=== PATIENT | female | born 1935 | race Caucasian/White ===

== ENCOUNTER 2017-01-04 20:06 | Emergency (ER) | payer MEDICARE, OTHER ==
[2017-01-04 20:22] VITALS: RESP 18
[2017-01-04] MEDS ORDERED: ONDANSETRON 4 MG/2 ML VIAL IVP STA (20:36)
[2017-01-04] MEDS ORDERED: KETOROLAC 60 MG/2 ML VIAL IVP STA (20:36)
--- NOTE | 2017-01-04 20:39 | ED ---
General Adult HPI - General Chief complaint: Fall Stated complaint: FALL Time Seen by Provider: 01/04/17 20:20 Source: patient, EMS, RN notes reviewed Mode of arrival: EMS Limitations: no limitations - History of Present Illness Initial comments: This is an 81-year-old female who is brought in by EMS. Patient states she was in her bathroom slipped fell forward and hit her nose on the vanity. Patient states from there she fell backwards onto her buttocks and now she complains of home pain at the bridge of her nose as well as lower back pain. Patient denies any head injury patient denies any headache patient denies any loss of consciousness. Patient denies any neck pain or any numbness or weakness. Patient denies chest pain or shortness of breath. Patient denies any upper extremity pain. Patient denies abdominal pain. Patient denies any upper back pain she only complains of lumbar sacral back pain. Patient denies any hip pain or lower extremity pain. Patient denies any sites of bleeding. - Related Data Home Medications Medication Instructions Recorded Confirmed Lisinopril-Hctz 20-25 mg 1 tab PO QAM 12/03/15 01/04/17 [Zestoretic 20-25] glyBURIDE/METFORMIN HCL 1 tab PO BID 12/16/15 01/04/17 [glyBURIDE/METFORMIN HCL 5-500 mg] Gabapentin [Neurontin] 300 mg PO BID 01/14/16 01/04/17 Aspirin [Adult Low Dose Aspirin EC] 81 mg PO DAILY 01/04/17 01/04/17 Ibuprofen [Motrin] 600 mg PO Q8HR PRN 01/04/17 01/04/17 Allergies Allergy/AdvReac Type Severity Reaction Status Date / Time Penicillins Allergy Rash/Hives Verified 01/04/17 20:24 Review of Systems ROS Statement: Those systems with pertinent positive or pertinent negative responses have been documented in the HPI. ROS Other: All systems not noted in ROS Statement are negative. Past Medical History Past Medical History: Diabetes Mellitus, Hypertension, Osteoarthritis (OA) Additional Past Medical History / Comment(s): wound vac to rt knee History of Any Multi-Drug Resistant Organisms: None Reported Past Surgical History: Appendectomy, Cholecystectomy Additional Past Surgical History / Comment(s): Lt knee surgry Past Anesthesia/Blood Transfusion Reactions: No Reported Reaction Past Psychological History: No Psychological Hx Reported Smoking Status: Former smoker Past Alcohol Use History: None Reported Past Drug Use History: None Reported - Past Family History Mother Family Medical History: Cancer Father Family Medical History: CVA/TIA General Exam - General Exam Comments Initial Comments: GENERAL: Patient is well-developed and well-nourished. Patient is nontoxic and well- hydrated and is in mild distress. ENT: Neck is soft and supple. No significant lymphadenopathy is noted. Oropharynx is clear. Moist mucous membranes. Neck has full range of motion without eliciting any pain. Patient's nasal bone is significantly tender and swollen EYES: The sclera were anicteric and conjunctiva were pink and moist. Extraocular movements were intact and pupils were equal round and reactive to light. Eyelids were unremarkable. Patient has some ecchymosis below both eyes PULMONARY: Unlabored respirations. Good breath sounds bilaterally. No audible rales rhonchi or wheezing was noted. CARDIOVASCULAR: There is a regular rate and rhythm without any murmurs gallops or rubs. ABDOMEN: Soft and nontender with normal bowel sounds. No palpable organomegaly was noted. There is no palpable pulsatile mass. SKIN: Skin is clear with no lesions or rashes and otherwise unremarkable. NEUROLOGIC: Patient is alert and oriented x3. Cranial nerves II through XII are grossly intact. Motor and sensory are also intact. Normal speech, volume and content. MUSCULOSKELETAL: Normal extremities with adequate strength and full range of motion. LYMPHATICS: No significant lymphadenopathy is noted PSYCHIATRIC: Normal psychiatric evaluation. Limitations: no limitations Course Vital Signs 01/04/17 20:19 Temperature 98.7 F Pulse Rate 98 Respiratory 18 Rate Blood Pressure 152/70 O2 Sat by Pulse 96 Oximetry Medical Decision Making - Medical Decision Making CT of the facial bones was negative for any fractures. Lumbar sacral spine was negative for any fractures. Patient's cervical spine x-ray was negative for any acute fractures. Disposition Clinical Impression: Facial contusion Disposition: HOME SELF-CARE Condition: Good Instructions: Fall Prevention for Older Adults (ED) Referrals: Emilee Elmore MD [Primary Care Provider] - 1-2 days Time of Disposition: 22:24
--- NOTE | 2017-01-04 21:15 | CT ---
EXAMINATION TYPE: CT facial bones wo con DATE OF EXAM: 01/04/2017 9:08 PM COMPARISON: NONE HISTORY: Fall today. Bruising bilateral orbital region CT DLP: 597 mGycm Automated exposure control for dose reduction was used. TECHNIQUE: CT scan of the sinuses is performed without contrast, axial images are obtained, coronal r eformatted images are also reviewed. FINDINGS: Orbital margins are intact. There is bilateral patency of the ostiomeatal complex. There is no eviden ce of a blowout fracture. There is no sign of orbital mass. The globes are symmetric. Nasal bone appe ars intact. Zygomatic arches appear normal. The maxilla is intact. The mandibular ring is intact. The re is some narrowing and spurring at the temporomandibular joints. There is fairly normal aeration of the paranasal sinuses. IMPRESSION: Negative CT scan of the facial bones. No evidence of traumatic injury.
--- NOTE | 2017-01-04 21:39 | XR ---
EXAMINATION TYPE: XR lumbar spine 2 or 3V DATE OF EXAM: 01/04/2017 9:22 PM COMPARISON: NONE HISTORY: Pain after a fall TECHNIQUE: 3 views FINDINGS: There is a mild thoracolumbar levoscoliosis. There is vacuum disc at L3-4 L4-5. There is ex tensive sclerotic change on both sides of the disc spaces at L3-4 and L4-5. There is some ankylotic c hange in the lower thoracic and upper lumbar spine. Abdominal aorta is atheromatous. Posterior elemen ts are intact. Sacroiliac joints appear normal. 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 There is sclerosi s at L3-4 L4-5 disc spaces that could relate to old chronic discitis. No fracture seen.
--- NOTE | 2017-01-04 21:41 | XR ---
EXAMINATION TYPE: XR cervical spine comp DATE OF EXAM: 01/04/2017 9:22 PM COMPARISON: 02/18/2014 HISTORY: Pain after a fall TECHNIQUE: 6 views FINDINGS: The cervical vertebra have fairly normal alignment. There is mild anterior spurring of the endplates. Posterior elements are intact. Atlantoaxial facet joint is normal. There are no cervical r ibs. IMPRESSION: Spondylotic changes. No fracture seen. No adverse change compared to old exam.
[2017-01-04] MEDS ORDERED: ACET/COD 300 MG/30 MG STARTER PACK 6 TAB BTL PO STA (22:45)
[2017-01-04] MEDS ORDERED: Acetaminophen-Codeine 300-30mg TAB PO STA (22:45)
[2017-01-04 23:15] VITALS: BP 116/57; PULSE 80; TEMP 98.6
== END 2017-01-04 22:55 | disposition home or self-care (01) ==
LOC: EC 20:06 → SUPCPDRO 20:06 → EC 22:55
DX: S00.33XA Contusion of nose, initial encounter (principal); E11.9 Type 2 diabetes mellitus without complications; I10 Essential (primary) hypertension; M19.90 Unspecified osteoarthritis, unspecified site; M46.40 Discitis, unspecified, site unspecified; W18.30XA Fall on same level, unspecified, initial encounter; Y92.002 Bathroom of unspecified non-institutional (private) residence as the place of occurrence of the external cause; Z79.899 Other long term (current) drug therapy; Z79.82 Long term (current) use of aspirin; Z88.0 Allergy status to penicillin; Z87.891 Personal history of nicotine dependence
CPT/HCPCS: 99284; 96374; 96375; 72050; 72100; 70486; J2405; J1885

== ENCOUNTER 2021-11-10 13:32 | Inpatient (IN) | payer MEDICARE ==
[2021-11-10] MEDS ORDERED: SODIUM CHLORIDE 0.9% 500 ML 500 ML IV STA (13:53)
[2021-11-10 14:19] LABS: Glucose,Whole Blood 115 mg/dL (75-99)
--- NOTE | 2021-11-10 14:26 | XR ---
EXAMINATION TYPE: XR chest 2V DATE OF EXAM: 11/10/2021 COMPARISON: 02/18/2014 HISTORY: Shortness of breath TECHNIQUE: Frontal and lateral views of the chest are obtained. FINDINGS: Scattered senescent parenchymal changes noted. Hyperinflation compatible with COPD. No evidence for infiltrate. No evidence for atelectasis. Heart size is stable. Mediastinal structures are stable and grossly unremarkable. No evidence for hilar prominence. Degenerative changes dorsal spine. IMPRESSION: 1. No evidence for acute pulmonary disease.
--- NOTE | 2021-11-10 14:43 | ED ---
General Adult HPI - General Chief complaint: Dizziness Stated complaint: lt hand numbness, light headed Time Seen by Provider: 11/10/21 13:35 Source: patient, family, RN notes reviewed, old records reviewed Mode of arrival: wheelchair Limitations: no limitations - History of Present Illness Initial comments: This is an 86-year-old female presents emergency department stating that she woke up this morning and her left arm was tingly in her hand but she could move it normally. Patient states the tingling sensation lasted approximately 30 minutes and was gone. Patient doesn't know if she slept on it wrong but she normally does not sleep on that side. Patient states she also has felt lightheaded on and off the whole day to a point where she thought she was going to pass out. Patient denies chest pain palpitations difficulty breathing or shortness of breath. Patient denies any cough. Patient denies abdominal pain patient denies nausea vomiting diarrhea. - Related Data Home Medications Medication Instructions Recorded Confirmed Lisinopril-Hctz 20-25 mg 1 tab PO QAM 12/03/15 01/04/17 [Zestoretic 20-25] glyBURIDE/METFORMIN HCL 1 tab PO BID 12/16/15 01/04/17 [Glucovance 5-500 mg] Gabapentin [Neurontin] 300 mg PO BID 01/14/16 01/04/17 Aspirin [Adult Low Dose Aspirin EC] 81 mg PO DAILY 01/04/17 01/04/17 Ibuprofen [Motrin] 600 mg PO Q8HR PRN 01/04/17 01/04/17 Allergies Allergy/AdvReac Type Severity Reaction Status Date / Time Penicillins Allergy Rash/Hives Verified 01/04/17 20:24 Review of Systems ROS Statement: Those systems with pertinent positive or pertinent negative responses have been documented in the HPI. ROS Other: All systems not noted in ROS Statement are negative. Past Medical History Past Medical History: Diabetes Mellitus, Hypertension, Osteoarthritis (OA) Additional Past Medical History / Comment(s): wound vac to rt knee History of Any Multi-Drug Resistant Organisms: None Reported Past Surgical History: Appendectomy, Cholecystectomy Additional Past Surgical History / Comment(s): Lt knee surgry Past Anesthesia/Blood Transfusion Reactions: No Reported Reaction Past Psychological History: No Psychological Hx Reported Smoking Status: Never smoker Past Alcohol Use History: None Reported Past Drug Use History: None Reported - Past Family History Mother Family Medical History: Cancer Father Family Medical History: CVA/TIA General Exam - General Exam Comments Initial Comments: GENERAL: Patient is well-developed and well-nourished. Patient is nontoxic and well- hydrated and is in mild distress. ENT: Neck is soft and supple. No significant lymphadenopathy is noted. Oropharynx is clear. Moist mucous membranes. Neck has full range of motion without eliciting any pain. EYES: The sclera were anicteric and conjunctiva were pink and moist. Extraocular movements were intact and pupils were equal round and reactive to light. Eyelids were unremarkable. PULMONARY: Unlabored respirations. Good breath sounds bilaterally. No audible rales rhonchi or wheezing was noted. CARDIOVASCULAR: There is a regular rate and rhythm without any murmurs gallops or rubs. ABDOMEN: Soft and nontender with normal bowel sounds. SKIN: Skin is clear with no lesions or rashes and otherwise unremarkable. NEUROLOGIC: Patient is alert and oriented x3. Cranial nerves II through XII are grossly intact. Motor and sensory are also intact. Normal speech, volume and content. Symmetrical smile. MUSCULOSKELETAL: Normal extremities with adequate strength and full range of motion. LYMPHATICS: No significant lymphadenopathy is noted PSYCHIATRIC: Normal psychiatric evaluation. Limitations: no limitations Course Vital Signs 11/10/21 11/10/21 13:36 14:48 Temperature 97.4 F L Pulse Rate 85 Pulse Rate [ 81 Left Sitting Spot Machine Operator ] Pulse Rate [ 87 Left Standing Spot Machine Operator ] Pulse Rate [ 71 Left Supine Spot Machine Operator ] Respiratory 17 Rate Blood Pressure 166/98 Blood Pressure 152/79 [Left Arm Sitting] Blood Pressure 143/67 [Left Arm Standing] Blood Pressure 133/55 [Left Arm Supine] O2 Sat by Pulse 99 Oximetry Medical Decision Making - Medical Decision Making EKG shows normal sinus rhythm at 80 bpm MT interval 280 QRSs 80 QT interval 390 QTC is 449. Patient's EKG shows no ST segment elevation or depression CT of the brain shows no acute abnormality. Chest x-ray shows no acute abnormality. I spoke with Dr. Ruiz he agreed to admit the patient I consult cardiology and neurology. - Lab Data Result diagrams: 11/10/21 14:03 11/10/21 14:03 Lab Results 11/10/21 11/10/21 11/10/21 Range/Units 14:03 14:03 14:03 WBC 11.9 H (3.8-10.6) k/uL RBC 4.22 (3.80-5.40) m/uL Hgb 13.2 (11.4-16.0) gm/dL Hct 40.9 (34.0-46.0) % MCV 96.8 (80.0-100.0) fL MCH 31.2 (25.0-35.0) pg MCHC 32.2 (31.0-37.0) g/dL RDW 12.5 (11.5-15.5) % Plt Count 271 (150-450) k/uL MPV 9.2 Neutrophils % 77 % Lymphocytes % 17 % Monocytes % 4 % Eosinophils % 2 % Basophils % 0 % Neutrophils # 9.1 H (1.3-7.7) k/uL Lymphocytes # 2.0 (1.0-4.8) k/uL Monocytes # 0.5 (0-1.0) k/uL Eosinophils # 0.2 (0-0.7) k/uL Basophils # 0.0 (0-0.2) k/uL PT (9.0-12.0) sec INR (<1.2) APTT (22.0-30.0) sec Sodium 137 (137-145) mmol/L Potassium 4.0 (3.5-5.1) mmol/L Chloride 102 (98-107) mmol/L Carbon Dioxide 24 (22-30) mmol/L Anion Gap 11 mmol/L BUN 15 (7-17) mg/dL Creatinine 0.99 (0.52-1.04) mg/dL Est GFR (CKD-EPI)AfAm 59 (>60 ml/min/1.73 sqM) Est GFR (CKD-EPI)NonAf 52 (>60 ml/min/1.73 sqM) Glucose 118 H (74-99) mg/dL POC Glucose (mg/dL) (75-99) mg/dL POC Glu Stock Tracer ID Calcium 9.4 (8.4-10.2) mg/dL Magnesium 1.0 L (1.6-2.3) mg/dL Total Bilirubin 0.7 (0.2-1.3) mg/dL AST 28 (14-36) U/L ALT 15 (4-34) U/L Alkaline Phosphatase 90 (38-126) U/L Troponin I (0.000-0.034) ng/mL Total Protein 7.0 (6.3-8.2) g/dL Albumin 4.0 (3.5-5.0) g/dL Urine Color Yellow Urine Appearance Cloudy H (Clear) Urine pH 6.5 (5.0-8.0) Ur Specific [place] 1.008 (1.001-1.035) Urine Protein Negative (Negative) Urine Glucose (UA) Negative (Negative) Urine Ketones Negative (Negative) Urine Blood Negative (Negative) Urine Nitrite Negative (Negative) Urine Bilirubin Negative (Negative) Urine Urobilinogen <2.0 (<2.0) mg/dL Ur Leukocyte Esterase Trace H (Negative) Urine RBC 1 (0-5) /hpf Urine WBC 3 (0-5) /hpf Ur Squamous Epith Cells 1 (0-4) /hpf Urine Bacteria Rare H (None) /hpf Urine Mucus Rare H (None) /hpf Coronavirus (PCR) (Not Detectd) 11/10/21 11/10/21 11/10/21 Range/Units 14:03 14:03 14:04 WBC (3.8-10.6) k/uL RBC (3.80-5.40) m/uL Hgb (11.4-16.0) gm/dL Hct (34.0-46.0) % MCV (80.0-100.0) fL MCH (25.0-35.0) pg MCHC (31.0-37.0) g/dL RDW (11.5-15.5) % Plt Count (150-450) k/uL MPV Neutrophils % % Lymphocytes % % Monocytes % % Eosinophils % % Basophils % % Neutrophils # (1.3-7.7) k/uL Lymphocytes # (1.0-4.8) k/uL Monocytes # (0-1.0) k/uL Eosinophils # (0-0.7) k/uL Basophils # (0-0.2) k/uL PT 10.4 (9.0-12.0) sec INR 1.0 (<1.2) APTT 23.3 (22.0-30.0) sec Sodium (137-145) mmol/L Potassium (3.5-5.1) mmol/L Chloride (98-107) mmol/L Carbon Dioxide (22-30) mmol/L Anion Gap mmol/L BUN (7-17) mg/dL Creatinine (0.52-1.04) mg/dL Est GFR (CKD-EPI)AfAm (>60 ml/min/1.73 sqM) Est GFR (CKD-EPI)NonAf (>60 ml/min/1.73 sqM) Glucose (74-99) mg/dL POC Glucose (mg/dL) (75-99) mg/dL POC Glu Stock Tracer ID Calcium (8.4-10.2) mg/dL Magnesium (1.6-2.3) mg/dL Total Bilirubin (0.2-1.3) mg/dL AST (14-36) U/L ALT (4-34) U/L Alkaline Phosphatase (38-126) U/L Troponin I <0.012 (0.000-0.034) ng/mL Total Protein (6.3-8.2) g/dL Albumin (3.5-5.0) g/dL Urine Color Urine Appearance (Clear) Urine pH (5.0-8.0) Ur Specific [place] (1.001-1.035) Urine Protein (Negative) Urine Glucose (UA) (Negative) Urine Ketones (Negative) Urine Blood (Negative) Urine Nitrite (Negative) Urine Bilirubin (Negative) Urine Urobilinogen (<2.0) mg/dL Ur Leukocyte Esterase (Negative) Urine RBC (0-5) /hpf Urine WBC (0-5) /hpf Ur Squamous Epith Cells (0-4) /hpf Urine Bacteria (None) /hpf Urine Mucus (None) /hpf Coronavirus (PCR) Not Detected (Not Detectd) 11/10/21 Range/Units 14:11 WBC (3.8-10.6) k/uL RBC (3.80-5.40) m/uL Hgb (11.4-16.0) gm/dL Hct (34.0-46.0) % MCV (80.0-100.0) fL MCH (25.0-35.0) pg MCHC (31.0-37.0) g/dL RDW (11.5-15.5) % Plt Count (150-450) k/uL MPV Neutrophils % % Lymphocytes % % Monocytes % % Eosinophils % % Basophils % % Neutrophils # (1.3-7.7) k/uL Lymphocytes # (1.0-4.8) k/uL Monocytes # (0-1.0) k/uL Eosinophils # (0-0.7) k/uL Basophils # (0-0.2) k/uL PT (9.0-12.0) sec INR (<1.2) APTT (22.0-30.0) sec Sodium (137-145) mmol/L Potassium (3.5-5.1) mmol/L Chloride (98-107) mmol/L Carbon Dioxide (22-30) mmol/L Anion Gap mmol/L BUN (7-17) mg/dL Creatinine (0.52-1.04) mg/dL Est GFR (CKD-EPI)AfAm (>60 ml/min/1.73 sqM) Est GFR (CKD-EPI)NonAf (>60 ml/min/1.73 sqM) Glucose (74-99) mg/dL POC Glucose (mg/dL) 115 H (75-99) mg/dL POC Glu Stock Tracer ID Noelle Clark Calcium (8.4-10.2) mg/dL Magnesium (1.6-2.3) mg/dL Total Bilirubin (0.2-1.3) mg/dL AST (14-36) U/L ALT (4-34) U/L Alkaline Phosphatase (38-126) U/L Troponin I (0.000-0.034) ng/mL Total Protein (6.3-8.2) g/dL Albumin (3.5-5.0) g/dL Urine Color Urine Appearance (Clear) Urine pH (5.0-8.0) Ur Specific [place] (1.001-1.035) Urine Protein (Negative) Urine Glucose (UA) (Negative) Urine Ketones (Negative) Urine Blood (Negative) Urine Nitrite (Negative) Urine Bilirubin (Negative) Urine Urobilinogen (<2.0) mg/dL Ur Leukocyte Esterase (Negative) Urine RBC (0-5) /hpf Urine WBC (0-5) /hpf Ur Squamous Epith Cells (0-4) /hpf Urine Bacteria (None) /hpf Urine Mucus (None) /hpf Coronavirus (PCR) (Not Detectd) Disposition Clinical Impression: TIA (transient ischemic attack), Near syncope Disposition: ADMITTED IP TO THIS HOSP Referrals: Piedad Tompkins MD [Primary Care Provider] - 1-2 days Time of Disposition: 15:55
--- NOTE | 2021-11-10 14:44 | CT ---
EXAMINATION TYPE: CT brain wo con DATE OF EXAM: 11/10/2021 COMPARISON: None HISTORY: Left hand numbness and lightheadedness CT DLP: 1048.4 mGycm Automated exposure control for dose reduction was used. FINDINGS: Mild generalized degenerative change. Intracranial atherosclerotic changes. No midline shift or mass effect. Nonspecific low-attenuation faintly in the white matter most typical remote white matter isch emia. Craniocervical junction maintained. There is a partially empty sella turcica. The mineralization of the calvarium correlate clinically. Orbits are symmetric. Sinuses are clear. IMPRESSION: GENERALIZED DEGENERATIVE CHANGE WITH NO ACUTE HEMORRHAGE OR MASS EFFECT.
[2021-11-10 14:46] LABS: Basophils % (A) 0 %; Eosinophils # (A) 0.2 k/uL (0-0.7); Eosinophils % (A) 2 %; HCT 40.9 % (34.0-46.0); HGB 13.2 gm/dL (11.4-16.0); Lymphocytes % (A) 17 %; MCH 31.2 pg (25.0-35.0); MCHC 32.2 g/dL (31.0-37.0); MCV 96.8 fL (80.0-100.0); Mean Platelet Volume 9.2; Monocytes # (A) 0.5 k/uL (0-1.0); Monocytes % (A) 4 %; Neutrophils # (A) 9.1 k/uL (1.3-7.7); Neutrophils % (A) 77 %; Platelet Count 271 k/uL (150-450); RBC 4.22 m/uL (3.80-5.40); RDW 12.5 % (11.5-15.5); WBC 11.9 k/uL (3.8-10.6)
[2021-11-10 14:54] LABS: Partial Thromboplastin Time 23.3 sec (22.0-30.0); Prothrombin Time 10.4 sec (9.0-12.0)
[2021-11-10 14:58] LABS: Calcium 9.4 mg/dL (8.4-10.2); Total Bilirubin 0.7 mg/dL (0.2-1.3)
[2021-11-10 15:44] LABS: Appearance,Urine Cloudy (Clear); Bacteria,Urine Rare /hpf; Bilirubin,Urine Negative (Negative); Blood,Urine Negative (Negative); Color,Urine Yellow; Glucose,Urine (UA) Negative (Negative); Ketones,Urine Negative (Negative); Leukocyte Esterase,Urine Trace (Negative); Mucus,Urine Rare /hpf; Nitrite,Urine Negative (Negative); PH, Urine 6.5 (5.0-8.0); Protein,Urine Negative (Negative); RBC,Urine 1 /hpf (0-5); Specific Gravity,Urine 1.008 (1.001-1.035); Squamous Epithelial Cell,Urine 1 /hpf (0-4); Urobilinogen,Urine <2.0 mg/dL (<2.0); WBC,Urine 3 /hpf (0-5)
[2021-11-10] MEDS ORDERED: SODIUM CHLORIDE 0.9% 1,000 ML IV ONE (15:55)
[2021-11-10] MEDS: MAGNESIUM SULFATE-D5W PMX 1 GM in DEXTROSE/WATER 1 100ML.BAG IVPB SCH ×2 (17:22→19:01)
[2021-11-10] MEDS ORDERED: Magnesium Replacement Protocol 1 EACH MISC MISCELLANE PRN (17:27)
[2021-11-10] MEDS ORDERED: Potassium Replacement Protocol 1 EACH MISC MISCELLANE PRN (17:27)
--- NOTE | 2021-11-10 18:51 | HP ---
HISTORY AND PHYSICAL DATE OF SERVICE: 11/10/2021. CHIEF COMPLAINTS: Dizziness and as well as numbness and tingling of the left hand. HISTORY OF PRESENT ILLNESS: This 86-year-old woman with a past medical history of multiple medical problems including diabetes, hypertension, history of DJD, history of cholecystectomy, history of appendectomy, being followed by Dr. Piedad Tompkins in the outpatient setting, was noted to have numbness and some tingling of the left arm since 4:00 am. The patient was having this sensation about 30 minutes and because of recurrent symptoms, the family was concerned and the patient was taken to [facility] and was admitted for evaluation and treatment. There is no history of fever, rigors. No history of headache, loss of consciousness. Patient is feeling lightheaded. Otherwise, there is no history any chest pain per se at this time. The evaluation in the ER showed WBC 11.9 and elevated glucose and Covid 19 was negative. The patient also had a CT of the brain which showed generalized DJD changes and no acute change. There is no history of fever, rigors, chills at this time. PAST MEDICAL HISTORY: History of diabetes, hypertension, history of DJD, history of appendectomy, cholecystectomy. HOME MEDICATIONS: Reviewed and include: Glyburide, lisinopril, aspirin, and Neurontin. Doses reviewed. ALLERGIES: PENICILLIN. FAMILY HISTORY: History of cancer in the family. SOCIAL HISTORY: No history of smoking. No history of alcohol. REVIEW OF SYSTEMS: ENT: Diminished vision. Diminished hearing. CARDIOVASCULAR system: As mentioned earlier. RESPIRATORY: As mentioned earlier. GI: No nausea or vomiting. : No dysuria. NERVOUS SYSTEM: As mentioned earlier. ALLERGY/IMMUNOLOGY: No asthma or hayfever. MUSCULOSKELETAL: As mentioned earlier. HEMATOLOGY/ONCOLOGY: No history of anemia. ENDOCRINE: As mentioned earlier. CONSTITUTIONAL: As mentioned earlier. DERMATOLOGY negative. RHEUMATOLOGY Negative. PSYCHIATRIC: As mentioned earlier. PHYSICAL EXAMINATION: Alert and oriented x3. Pulse 81. Blood pressure 152/79, respirations 20. Temperature 97.4. Minimal orthostatic changes. HEENT: Conjunctivae normal. NECK: No JVD. CARDIOVASCULAR: S1, S2 muffled. RESPIRATION: Breath sounds diminished in the bases. No orthostatic changes. ABDOMEN: Soft, nontender. NERVOUS SYSTEM: Higher functions as mentioned. Moves all four limbs. No focal motor or sensory deficits. No signs of cerebellar incoordination. SKIN: No ulcers, no rashes and no bleeding. JOINTS: No active deforming arthropathy. LYMPHATICS: No lymph dnoes palpable in the neck, axilla or groin. LABS: WBC 11.8, hemoglobin 13.2, glucose 115. ASSESSMENT: 1. Tingling and numbness of the left and possible acute transient ischemic attack. 2. Diabetes type 2. 3. Hypertension. 4. History of degenerative joint disease. 5. History of cholecystectomy. 6. History of wound VAC to the right knee. 7. Obesity with body mass index of 37.1. 8. FULL CODE. RECOMMENDATIONS AND DISCUSSION: In this 86-year-old woman presented with multiple complex medical issues, we will monitor the patient closely, continue the current management and recommend neurology consultation and complete neurovascular workup. Resume home medications. Prognosis guarded because of multiple complex medical issues. Further recommendations to follow. A copy of this dictation being forwarded to Dr. Piedad OMER / MONICA: [phone] /
[2021-11-10] MEDS: GABAPENTIN 300 MG CAP PO SCH (20:58)
[2021-11-10 21:00] LABS: Glucose,Whole Blood 152 mg/dL (75-99)
[2021-11-10] MEDS ORDERED: metFORMIN 500 MG TAB PO SCH (21:00)
[2021-11-10] MEDS ORDERED: glipiZIDE 5 MG TAB PO SCH (21:00)
--- NOTE | 2021-11-10 23:20 | US ---
EXAMINATION TYPE: US carotid duplex BILAT DATE OF EXAM: 11/10/2021 COMPARISON: CT brain. CLINICAL HISTORY: stroke. Stroke per order. EXAM MEASUREMENTS: RIGHT: Peak Systolic Velocity (PSV) cm/sec ----- Right CCA: 55.5 ----- Right ICA: 94.1 ----- Right ECA: 73.2 ICA/CCA ratio: 1.7 RIGHT: End Diastole cm/sec ----- Right CCA: 11.0 ----- Right ICA: 6.2 ----- Right ECA: 7.3 LEFT: Peak Systolic Velocity (PSV) cm/sec ----- Left CCA: 59.0 ----- Left ICA: 84.2 ----- Left ECA: 82.0 ICA/CCA ratio: 1.4 LEFT: End Diastole cm/sec ----- Left CCA: 11.1 ----- Left ICA: 29.2 ----- Left ECA: 6.2 VERTEBRALS (direction of flow): Right Vertebral: Antegrade Left Vertebral: Antegrade Rhythm: Normal Plaque seen within bilateral carotid bulbs and left prox ICA. No elevated velocities at this time. *Incidental finding: Hypoechoic area seen within left thyroid lobe: 1.0 x 0.9 x 0.8 cm. IMPRESSION: There is antegrade flow in the vertebral arteries. The images and measurements suggest close to 50% s tenosis in both internal carotid arteries. Criteria for Assigning % of Stenosis / Diameter reduction (Estimation based on the indirect measurements of the internal carotid artery velocities (ICA PSV). 1. Normal (no stenosis)=ICA PSV < 125 cm/s: ratio < 2.0: ICA EDV<40 cm/s. 2. Less than 50% stenosis=ICA PSV < 125 cm/s: ratio < 2.0: ICA EDV<40 cm/s. 3. 50 to 69% stenosis=ICA PSV of 125 to 230 cm/s: ration 2.0 ? 4.0: ICA EDV 40-100 cm/s. 4. Greater than 70% stenosis to near occlusion= ICA PSV > 230 cm/s: ratio > 4.0: ICA EDV > 100 cm/s. 5. Near occlusion= ICA PSV velocities may be low or undetectable: variable ratio and ICA EDV. 6. Total occlusion=unable to detect flow.
[2021-11-11 06:19] LABS: Glucose,Whole Blood 89 mg/dL (75-99)
[2021-11-11] MEDS: GABAPENTIN 300 MG CAP PO SCH (08:14)
[2021-11-11] MEDS ORDERED: glipiZIDE 10 MG TAB PO SCH (09:00)
[2021-11-11] MEDS ORDERED: ASPIRIN 81 MG PO SCH (09:00)
[2021-11-11] MEDS ORDERED: LISINOPRIL-HCTZ 20-25 MG 1 EACH TAB PO SCH (09:00)
[2021-11-11] MEDS ORDERED: metFORMIN 500 MG TAB PO SCH (09:00)
[2021-11-11 09:01] LABS: Calcium 9.7 mg/dL (8.4-10.2); Magnesium 1.4 mg/dL (1.6-2.3); Potassium 3.5 mmol/L (3.5-5.1)
[2021-11-11 09:18] LABS: Basophils % (A) 0 %; Eosinophils # (A) 0.3 k/uL (0-0.7); Eosinophils % (A) 2 %; HCT 39.6 % (34.0-46.0); HGB 12.9 gm/dL (11.4-16.0); Lymphocytes # (A) 2.4 k/uL (1.0-4.8); Lymphocytes % (A) 21 %; MCH 31.8 pg (25.0-35.0); MCHC 32.7 g/dL (31.0-37.0); MCV 97.3 fL (80.0-100.0); Mean Platelet Volume 9.1; Monocytes # (A) 0.7 k/uL (0-1.0); Monocytes % (A) 6 %; Neutrophils # (A) 8.2 k/uL (1.3-7.7); Neutrophils % (A) 70 %; Platelet Count 274 k/uL (150-450); RBC 4.07 m/uL (3.80-5.40); RDW 12.4 % (11.5-15.5); WBC 11.6 k/uL (3.8-10.6)
[2021-11-11] MEDS ORDERED: Magnesium Replacement Protocol 1 EACH MISC MISCELLANE PRN (09:41)
--- NOTE | 2021-11-11 09:54 | ECHOF ---
Referral Reason:Stroke MEASUREMENTS -------- HEIGHT: 165.1 cm WEIGHT: 101.2 kg BP: RVIDd: 3.5 cm (< 3.3) IVSd: 1.4 cm (0.6 - 1.1) LVIDd: 4.0 cm (3.9 - 5.3) LVPWd: 1.2 cm (0.6 - 1.1) IVSs: 1.6 cm LVIDs: 3.0 cm LVPWs: 1.3 cm Ao Diam: 3.0 cm (2.0 - 3.7) AV Cusp: 1.5 cm (1.5 - 2.6) LA Diam: 4.1 cm (2.7 - 3.8) MV EXCURSION: 16.399 mm (> 18.000) MV EF SLOPE: 56 mm/s (70 - 150) EPSS: 0.7 cm MV E Jules: 0.41 m/s MV DecT: 289 ms MV A Jules: 0.90 m/s MV E/A Ratio: 0.46 RAP: 5.00 mmHg RVSP: 30.43 mmHg FINDINGS -------- Sinus rhythm. This was a technically adequate study. The left ventricular size is normal. There is moderate concentric left ventricular hypertrophy. O verall left ventricular systolic function is low-normal with, an EF between 50 - 55 %. The right ventricle is normal in size. The left atrial size is normal. The right atrial size is normal. There is mild aortic valve sclerosis. Trace to mild aortic regurgitation. Mild mitral annular calcification present. Mild mitral regurgitation is present. Mild tricuspid regurgitation present. Right ventricular systolic pressure is normal at < 35 mmHg. There is no pulmonic regurgitation present. Echo free space represents a pericardial fat pad. CONCLUSIONS -------- 1. The left ventricular size is normal. 2. There is moderate concentric left ventricular hypertrophy. 3. Overall left ventricular systolic function is low-normal with, an EF between 50 - 55 %. 4. The right ventricle is normal in size. 5. The left atrial size is normal. 6. The right atrial size is normal. 7. There is mild aortic valve sclerosis. 8. Trace to mild aortic regurgitation. 9. Mild mitral annular calcification present. 10. Mild mitral regurgitation is present. 11. Mild tricuspid regurgitation present. 12. There is no pulmonic regurgitation present. 13. Echo free space represents a pericardial fat pad. SUPERINTENDENT PRODUCTION: Angelica Tyler RDCS
--- NOTE | 2021-11-11 10:09 | P.CRDCN ---
History of Present Illness Consult date: 11/11/21 Chief complaint: Presyncope History of present illness: The patient is a very pleasant 86-year-old female patient who does not follow with cardiology regularly with a past medical history significant for diabetes as well as hypertension and dyslipidemia, we asked to see here on the third floor for further evaluation regarding bradycardia syncope. The patient somewhat is a poor historian and she has extreme difficulty hearing. She stated that she was in her usual state of health yesterday when she woke up from sleep complaining of tingling in her left hand associated with numbness in the left hand as well. The patient did not have any difficulty in finding the menard nor difficulty speech. No symptoms of dizziness or lightheadedness. No loss of consciousness or syncope. And she has no symptoms of upper or lower extremities weakness. The numbness started at 4:00 in the morning. She stated lasted for about 30 minutes to about an hour then it was resolved. For that reason she decided to come to the emergency department. She underwent a workup including carotid duplex study and that showed intermediate disease bilaterally without high-grade stenosis. She underwent also an EKG which showed sinus rhythm without any significant ST or T-wave abnormalities. Beside that she underwent a blood work and that came in to be unremarkable. The echo showed normal left ventricular systolic function without significant valvular abnormalities and without significant wall motion abnormalities. Past Medical History Past Medical History: Diabetes Mellitus, Hyperlipidemia, Hypertension, Osteoa rthritis (OA) Additional Past Medical History / Comment(s): wound vac to rt knee History of Any Multi-Drug Resistant Organisms: None Reported Past Surgical History: Appendectomy, Cholecystectomy Additional Past Surgical History / Comment(s): Lt knee surgry Past Anesthesia/Blood Transfusion Reactions: No Reported Reaction Past Psychological History: No Psychological Hx Reported Smoking Status: Former smoker Past Alcohol Use History: None Reported Past Drug Use History: None Reported - Past Family History Mother Family Medical History: Cancer Father Family Medical History: CVA/TIA Medications and Allergies Home Medications Medication Instructions Recorded Confirmed Type Lisinopril-Hctz 20-25 mg 1 tab PO DAILY 12/03/15 11/10/21 History [Zestoretic 20-25] glyBURIDE/METFORMIN HCL 0.5 tab PO HS 12/16/15 11/10/21 History [Glucovance 5-500 mg] Gabapentin [Neurontin] 300 mg PO BID 01/14/16 11/10/21 History Aspirin [Adult Low Dose Aspirin EC] 81 mg PO DAILY 01/04/17 11/10/21 History glyBURIDE/METFORMIN HCL 1 tab PO DAILY 11/10/21 11/10/21 History [Glucovance 5-500 mg] Allergies Allergy/AdvReac Type Severity Reaction Status Date / Time Penicillins Allergy Rash/Hives Verified 11/10/21 16:24 Physical Exam Vitals: Vital Signs Temp Pulse Pulse Pulse Pulse Resp BP 11/11/21 08:05 98.4 F 11/11/21 08:00 18 11/11/21 07:55 73 18 11/11/21 04:00 98.4 F 75 18 11/10/21 23:50 98.3 F 70 18 11/10/21 20:00 98.5 F 79 18 11/10/21 19:12 67 18 11/10/21 14:48 81 87 71 11/10/21 13:36 97.4 F L 85 17 166/98 BP BP BP Pulse Ox 11/11/21 08:05 11/11/21 08:00 11/11/21 07:55 146/68 97 11/11/21 04:00 141/61 95 11/10/21 23:50 144/65 98 11/10/21 20:00 166/70 98 11/10/21 19:12 160/74 99 11/10/21 14:48 152/79 143/67 133/55 11/10/21 13:36 99 Intake and Output 11/10/21 11/11/21 11/11/21 22:59 06:59 14:59 Intake Total 128 Balance 128 Intake: IV 10 Invasive Line 1 10 Oral 118 Other: Voiding Method Toilet Toilet # Voids 0 1 1 # Bowel Movements 0 Weight 101.151 kg - Constitutional General appearance: no acute distress - Respiratory Respiratory: bilateral: CTA - Cardiovascular Rhythm: regular Heart sounds: normal: S1, S2 Results 11/11/21 08:11 11/11/21 08:11 Cardiac Enzymes 11/10/21 11/10/21 Range/Units 14:03 14:03 AST 28 (14-36) U/L Troponin I <0.012 (0.000-0.034) ng/mL Coagulation 11/10/21 Range/Units 14:04 PT 10.4 (9.0-12.0) sec APTT 23.3 (22.0-30.0) sec CBC 11/10/21 11/11/21 Range/Units 14:03 08:11 WBC 11.9 H 11.6 H (3.8-10.6) k/uL RBC 4.22 4.07 (3.80-5.40) m/uL Hgb 13.2 12.9 (11.4-16.0) gm/dL Hct 40.9 39.6 (34.0-46.0) % Plt Count 271 274 (150-450) k/uL Comprehensive Metabolic Panel 11/10/21 11/11/21 Range/Units 14:03 08:11 Sodium 137 137 (137-145) mmol/L Potassium 4.0 3.5 (3.5-5.1) mmol/L Chloride 102 100 (98-107) mmol/L Carbon Dioxide 24 26 (22-30) mmol/L BUN 15 13 (7-17) mg/dL Creatinine 0.99 1.05 H (0.52-1.04) mg/dL Glucose 118 H 112 H (74-99) mg/dL Calcium 9.4 9.7 (8.4-10.2) mg/dL AST 28 (14-36) U/L ALT 15 (4-34) U/L Alkaline Phosphatase 90 (38-126) U/L Total Protein 7.0 (6.3-8.2) g/dL Albumin 4.0 (3.5-5.0) g/dL Current Medications Generic Name Dose Route Start Last Admin Trade Name Jannette PRN Reason Stop Dose Admin Aspirin 81 mg 11/11/21 09:00 11/11/21 08:13 Aspirin 81 Mg PO 81 mg DAILY SOBIA Administration Gabapentin 300 mg 11/10/21 21:00 11/11/21 08:14 Gabapentin 300 Mg Cap PO 300 mg BID SOBIA Administration Glipizide 5 mg 11/10/21 21:00 11/10/21 20:58 Glipizide 5 Mg Tab PO 5 mg HS SOBIA Administration Glipizide 10 mg 11/11/21 09:00 11/11/21 08:14 Glipizide 10 Mg Tab PO 10 mg DAILY SOBIA Administration Lisinopril/HCTZ 1 each 11/11/21 09:00 11/11/21 08:16 Lisinopril-Hctz 20-25 Mg 1 Each Tab PO 1 each DAILY SOBIA Administration Magnesium Sulfate/Dextrose 1 100 mls @ 100 mls/hr 11/11/21 09:45 gm/ IV Solution IVPB 11/11/21 12:44 Q1H SOBIA Metformin HCl 250 mg 11/10/21 21:00 11/10/21 20:58 Metformin 500 Mg Tab PO 250 mg HS SOBIA Administration Metformin HCl 500 mg 11/11/21 09:00 11/11/21 08:17 Metformin 500 Mg Tab PO 500 mg DAILY SOBIA Administration Miscellaneous Information 1 each 11/10/21 17:27 Magnesium Replacement Protocol 1 Each Misc MISCELLANE DAILY PRN Per Protocol Protocol Miscellaneous Information 1 each 11/10/21 17:27 Potassium Replacement Protocol 1 Each Misc MISCELLANE DAILY PRN Per Protocol Protocol Miscellaneous Information 1 each 11/11/21 09:41 Magnesium Replacement Protocol 1 Each Misc MISCELLANE DAILY PRN Per Protocol Protocol Intake and Output 11/10/21 11/11/21 11/11/21 22:59 06:59 14:59 Intake Total 128 Balance 128 Intake: IV 10 Invasive Line 1 10 Oral 118 Other: Voiding Method Toilet Toilet # Voids 0 1 1 # Bowel Movements 0 Weight 101.151 kg 11/11/21 08:11 11/11/21 08:11 Assessment and Plan Assessment: Assessment #1 symptoms of tingling in the left hand. Currently the patient is feeling better #2 diabetes type 2 #3 bilateral carotid disease #4 dyslipidemia Plan #1 rule out TIA/CVA. I would advise a neurology evaluation #2 rule out cardiac arrhythmia, like atrial fibrillation, getting her age she's 86-year-old and multiple risk factors including diabetes and hypertension #3 we will monitor the patient for arrhythmias her on the hospital stay #4 she might benefit from an event monitor as an outpatient if no arrhythmia was detected during her hospital stay #5 continue antiplatelet as well as a statin #6 await the neurology input.
[2021-11-11] MEDS: MAGNESIUM SULFATE-D5W PMX 1 GM in DEXTROSE/WATER 1 100ML.BAG IVPB SCH ×3 (10:46→11:18)
[2021-11-11 11:00] VITALS: BMI 37.0
[2021-11-11] MEDS: MAGNESIUM OXIDE 400 MG TAB PO SCH ×3 (11:17→19:09)
[2021-11-11] MEDS ORDERED: CLOPIDOGREL 75 MG TAB PO SCH (12:00)
[2021-11-11 12:01] LABS: Glucose,Whole Blood 166 mg/dL (75-99)
[2021-11-11 12:45] VITALS: RESP 16
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
[2021-11-11 15:27] VITALS: BP 162/75; PULSE 78; TEMP 97.3
[2021-11-11 16:51] LABS: Glucose,Whole Blood 109 mg/dL (75-99)
--- NOTE | 2021-11-11 18:56 | MR ---
EXAMINATION TYPE: MR angio head wo con DATE OF EXAM: 11/11/2021 COMPARISON: None HISTORY: family HX of aneurysm TECHNIQUE: Time of flight images focusing on the [place] were performed without contrast. FINDINGS: Included portions of the internal carotid arteries are patent. Included portions of the vertebral arteries are patent. Hypoplastic left vertebral artery. Patent anterior cerebral arteries, middle cerebral arteries and posterior cerebral arteries. No definite aneurysm appreciated. Limited sequence evaluating the partially included brain parenchyma there is unremarkable. IMPRESSION: No arterial occlusion or aneurysm seen. Hypoplastic left vertebral artery, dominant right vertebral artery.
[2021-11-11 19:17] LABS: LDL Cholesterol,Calculated 75.2 mg/dL (0.0-131.0)
--- NOTE | 2021-11-11 20:21 | DS ---
DISCHARGE SUMMARY DATE OF SERVICE: 11/11/2021 FINAL DIAGNOSES: 1. Tingling, numbness of the left hand and with possible acute transient ischemic attack involving the right hemisphere. 2. Diabetes type 2. 3. Hypertension. 4. History of degenerative joint disease. 5. History of cholecystectomy. 6. History of wound VAC to the right knee. 7. Obesity with body mass index 37.1. 8. FULL CODE. 9. 50% stenosis of the both internal carotid arteries. DISCHARGE DISPOSITION: The patient will be discharged in stable condition with guarded prognosis. The patient will be discharged if the MRI is normal and acceptable to Dr. Monique, neurologist. HISTORY OF PRESENT ILLNESS: This 86-year-old woman with a past medical history of multiple medical problems as mentioned earlier was admitted with features of numbness and tingling of the left hand and TIA. The patient has improved but neurovascular workup showed 50% stenosis in the internal carotid artery both sides. Otherwise, Dr. Monique saw the patient and recommended an MRI scan. The patient will be discharged home with the following advice and medications if the MRI is normal or acceptable: 1. Discharge diet is cardiac diet. 2. Activity limited until followup. 3. Follow up with Dr. Tompkins, primary physician. 4. Follow up with Dr. [place] in 2-3 days. 5. Follow up with Dr. Cespedes as recommended. 6. Ecotrin 81 mg daily. 7. Glyburide, metformin as before. 8. Neurontin 300 mg p.o. b.i.d. 9. Lisinopril hydrochlorothiazide 1 tab p.o. daily. 10.Magnesium oxide 400 mg p.o. t.i.d. 11.Plavix 75 mg p.o. daily. 12.Check magnesium, lytes with the primary physician. MMODL / IJN: [id number] /
== END 2021-11-11 19:27 | disposition home or self-care (01) | DRG 69 ==
LOC: EC 13:32 → 3SCARD 15:57
PROVIDERS: ADMIT Hospitalist; ATTEND Hospitalist
DX: G45.9 Transient cerebral ischemic attack, unspecified (principal); E11.65 Type 2 diabetes mellitus with hyperglycemia; R20.2 Paresthesia of skin; I08.3 Combined rheumatic disorders of mitral, aortic and tricuspid valves; Z20.822 Contact with and (suspected) exposure to COVID-19; E66.9 Obesity, unspecified; E78.5 Hyperlipidemia, unspecified; I10 Essential (primary) hypertension; M19.90 Unspecified osteoarthritis, unspecified site; Z68.37 Body mass index [BMI] 37.0-37.9, adult; Z79.02 Long term (current) use of antithrombotics/antiplatelets; Z79.82 Long term (current) use of aspirin; Z79.899 Other long term (current) drug therapy; Z82.3 Family history of stroke; Z90.49 Acquired absence of other specified parts of digestive tract; Z80.9 Family history of malignant neoplasm, unspecified; Z88.0 Allergy status to penicillin; Z79.84 Long term (current) use of oral hypoglycemic drugs; Z87.891 Personal history of nicotine dependence
CPT/HCPCS: 36415; 70450; 70544; 71046; 80048; 80053; 80061; 81001; 83036; 83735; 84484; 85025; 85610; 85730; 87635; 93005; 93306; 93880; 99285

== ENCOUNTER 2022-10-28 15:31 | Observation (INO) | payer MEDICARE ==
--- NOTE | 2022-10-28 18:18 | ED ---
Extremity Problem HPI - General Chief complaint: Extremity Problem,Nontraumatic Stated complaint: lt leg weakness Time Seen by Provider: 10/28/22 18:07 Source: patient, family, RN notes reviewed Mode of arrival: ambulatory Limitations: no limitations - History of Present Illness Initial comments: Patient is an 87-year-old male presenting to the emergency room with her daughter with concerns regarding pain in her left leg. 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 She states that the primary care provider pushed on the area and since that time she has had an increase in swelling throughout the entire extremity with worsening pain including stabbing in the thigh region with difficulty in walking. She denies any other joint pain or pain in her right extremity. She denies any chest pain, shortness of breath, abdominal pain, back pain, fevers or chills. She denies any numbness or tingling in the joint, wounds or falls. She has a past medical history significant for diabetes, hypertension, hyperlipidemia and osteoarthritis. - Related Data Home Medications Medication Instructions Recorded Confirmed Lisinopril-Hctz 20-25 mg 1 tab PO DAILY 12/03/15 11/10/21 [Zestoretic 20-25] glyBURIDE/METFORMIN HCL 0.5 tab PO HS 12/16/15 11/10/21 [Glucovance 5-500 mg] Gabapentin [Neurontin] 300 mg PO BID 01/14/16 11/10/21 Aspirin [Adult Low Dose Aspirin EC] 81 mg PO DAILY 01/04/17 11/10/21 glyBURIDE/METFORMIN HCL 1 tab PO DAILY 11/10/21 11/10/21 [Glucovance 5-500 mg] Previous Rx's Medication Instructions Recorded Clopidogrel [Plavix] 75 mg PO DAILY #30 tab 11/11/21 Magnesium Oxide [Mag-Ox] 400 mg PO TID #120 tab 11/11/21 Allergies Allergy/AdvReac Type Severity Reaction Status Date / Time Penicillins Allergy Rash/Hives Verified 10/28/22 15:53 Review of Systems ROS Statement: Those systems with pertinent positive or pertinent negative responses have been documented in the HPI. ROS Other: All systems not noted in ROS Statement are negative. Past Medical History Past Medical History: Diabetes Mellitus, Hyperlipidemia, Hypertension, Osteoarthritis (OA) Additional Past Medical History / Comment(s): wound vac to rt knee History of Any Multi-Drug Resistant Organisms: None Reported Past Surgical History: Appendectomy, Cholecystectomy Additional Past Surgical History / Comment(s): Lt knee surgry Past Anesthesia/Blood Transfusion Reactions: No Reported Reaction Past Psychological History: No Psychological Hx Reported Smoking Status: Former smoker Past Alcohol Use History: None Reported Past Drug Use History: None Reported - Past Family History Mother Family Medical History: Cancer Father Family Medical History: CVA/TIA General Exam Limitations: no limitations General appearance: alert, in no apparent distress Head exam: Present: atraumatic, normocephalic, normal inspection Eye exam: Present: normal appearance, PERRL, EOMI. Absent: scleral icterus, conjunctival injection, periorbital swelling ENT exam: Present: normal exam, mucous membranes moist Neck exam: Present: normal inspection, full ROM Respiratory exam: Absent: respiratory distress, accessory muscle use Cardiovascular Exam: Present: regular rate GI/Abdominal exam: Absent: distended Left Upper Leg exam: Present: tenderness, swelling. Absent: full ROM Knee exam: Present: tenderness, swelling. Absent: full ROM (Left lower extremity with mild swelling without [id number] with decreased range of motion throughout secondary to pain) Lower Leg exam: Present: tenderness, swelling. Absent: full ROM Ankle exam: Present: full ROM, tenderness, swelling Foot/Toe exam: Present: full ROM Back exam: Present: normal inspection Neurological exam: Present: alert, oriented X3, CN II-XII intact Psychiatric exam: Present: normal affect, normal mood Skin exam: Present: warm, dry, intact, normal color. Absent: rash Course Vital Signs 10/28/22 15:48 Temperature 98 F Pulse Rate 90 Respiratory 18 Rate Blood Pressure 152/80 O2 Sat by Pulse 98 Oximetry Medical Decision Making - Medical Decision Making 87 year female presenting to the emergency room with complaints of pain to left lower extremity worse with movement along with swelling. No erythema near numbness tingling pallor, discoloration or decreasing capillary refill. Will give Toradol for pain as she reports improved symptoms with morphine Motrin at home. Will obtain ultrasound of the left lower extremity. Will deferred other diagnostic imaging and laboratory studies at this time. Case discussed with entrance referred to Dr. Larry for dispo. Disposition Referrals: Piedad Tompkins MD [Primary Care Provider] - 1-2 days
[2022-10-28] MEDS ORDERED: KETOROLAC 15 MG/ML 1 ML VIAL IM STA (18:23)
--- NOTE | 2022-10-28 19:50 | US ---
EXAMINATION TYPE: US venous doppler duplex LE LT DATE OF EXAM: 10/28/2022 7:29 PM COMPARISON: NONE CLINICAL HISTORY: pain swelling. left calf swelling. Pt states she has a lump on calf that a doctor h as dx with a cyst. No hx of DVT. On blood thinners SIDE PERFORMED: Left TECHNIQUE: The lower extremity deep venous system is examined utilizing real time linear array sonog jonathan with graded compression, doppler sonography and color-flow sonography. VESSELS IMAGED: Common Femoral Vein Deep Femoral Vein Greater Saphenous Vein * Femoral Vein Popliteal Vein Small Saphenous Vein * Proximal Calf Veins (* superficial vessels) Left Leg: Positive for DVT. Common femoral vein, deep femoral vein, mid deep femoral vein and distal femoral vein. No obvious ultrasound pathology visualized at area of lump IMPRESSION: 1. Deep venous thrombosis left lower extremity common femoral vein and deep femoral vein. 2. No suspicious abnormality at the palpable left calf abnormality
[2022-10-28] MEDS ORDERED: NALOXONE 0.4 MG/ML 1 ML VIAL IV PRN (20:36)
[2022-10-28] MEDS ORDERED: HEPARIN SODIUM 1,000 UN/ML (10ML VL) IV PRN (20:38)
[2022-10-28] MEDS ORDERED: HEPARIN SODIUM 1,000 UN/ML (10ML VL) IV ONE (20:38)
[2022-10-28] MEDS ORDERED: HEPARIN SOD,PORK IN 0.45% NACL 25,000 UNIT in 0.45% NACL 1 250ML.BAG IV SCH (20:45)
[2022-10-28] MEDS: SODIUM CHLORIDE 0.9% 1,000 ML IV SCH (21:02)
[2022-10-29 03:55] LABS: Basophils % (A) 0 %; Eosinophils # (A) 0.1 k/uL (0-0.7); Eosinophils % (A) 1 %; HCT 33.4 % (34.0-46.0); HGB 11.7 gm/dL (11.4-16.0); Lymphocytes # (A) 2.2 k/uL (1.0-4.8); Lymphocytes % (A) 21 %; MCH 32.5 pg (25.0-35.0); MCV 92.9 fL (80.0-100.0); Monocytes # (A) 0.5 k/uL (0-1.0); Monocytes % (A) 5 %; Neutrophils # (A) 7.3 k/uL (1.3-7.7); Neutrophils % (A) 71 %; Platelet Count 210 k/uL (150-450); RBC 3.59 m/uL (3.80-5.40); RDW 12.6 % (11.5-15.5); WBC 10.2 k/uL (3.8-10.6)
--- NOTE | 2022-10-29 10:02 | P.GSCN ---
History of Present Illness Consult date: 10/29/22 Reason for Consult: Left lower extremity DVT Requesting physician: Demar Poon History of present illness: Is a pleasant 87-year-old female who presented to the emergency department with complaints of left lower extremity pain. Apparently the patient had an ultrasound done at her physician's office and was told that she had a Wyatt's cyst behind her knee. However patient states she started having worsening of p ain just above and below the knee, so she came in for further evaluation. Patient had a venous duplex that initially she had a left DVT in the common femoral vein and deep femoral vein, however after the radiologist reviewed again he states that it was a difficult exam and there were severe limitations on the examination due to patient cooperation and didn't addendum to the initial study saying that there was no deep venous thrombosis proven by ultrasound. Vascular surgery was consulted to review venous duplex and give further recommendations. Patient is currently on a heparin drip at this time. She states her pain in her leg was over the last 2-3 days duration. Denies any injury to her leg. States she still has some pain. Also states she has osteoarthritis that has been worsening as well in her legs. No other imaging was done. Review of Systems A 14 point review systems was completed all pertinent positives and negatives as stated in the HPI. Past Medical History Past Medical History: Diabetes Mellitus, Hyperlipidemia, Hypertension, Osteoarthritis (OA) Additional Past Medical History / Comment(s): wound vac to rt knee History of Any Multi-Drug Resistant Organisms: None Reported Past Surgical History: Appendectomy, Cholecystectomy Additional Past Surgical History / Comment(s): Lt knee surgry Past Anesthesia/Blood Transfusion Reactions: No Reported Reaction Past Psychological History: No Psychological Hx Reported Smoking Status: Former smoker Past Alcohol Use History: None Reported Past Drug Use History: None Reported - Past Family History Mother Family Medical History: Cancer Father Family Medical History: CVA/TIA Medications and Allergies Home Medications Medication Instructions Recorded Confirmed Type Lisinopril-Hctz 20-25 mg 1 tab PO DAILY 12/03/15 10/28/22 History [Zestoretic 20-25] Gabapentin [Neurontin] 300 mg PO TID 01/14/16 10/28/22 History glyBURIDE/METFORMIN HCL 1 tab PO DAILY 11/10/21 10/28/22 History [Glucovance 5-500 mg] Clopidogrel [Plavix] 75 mg PO DAILY #30 tab 11/11/21 10/28/22 Rx Ibuprofen [Motrin] 800 mg PO Q8H PRN 10/28/22 10/28/22 History Allergies Allergy/AdvReac Type Severity Reaction Status Date / Time Penicillins Allergy Rash/Hives Verified 10/28/22 20:23 Surgical - Exam Vital Signs Temp Pulse Resp BP Pulse Ox 98 F 90 18 152/80 98 10/28/22 15:48 10/28/22 15:48 10/28/22 15:48 10/28/22 15:48 10/28/22 15:48 General appearance: The patient is alert, oriented, appears in no acute distress. Obese. HET: Head is normocephalic and atraumatic. Pupils are equal and reactive. Neck: Supple without lymphadenopathy. Trachea midline. Heart: Regular. Lungs: Equal expansion, normal respiratory effort. Abdomen: Soft, nontender, nondistended. Extremities: Normal skin color and turgor. Bilateral lower extremity with some swelling nonpitting. Patient with tenderness to palpation just below the knee and above. No redness. She has palpable bilateral PT and DP pulses. Neurological: No focal deficits. Strength and sensation are grossly intact. Results - Labs 10/29/22 03:42 Abnormal Lab Results - Last 24 Hours (Table) 10/29/22 10/29/22 Range/Units 03:42 03:42 RBC 3.59 L (3.80-5.40) m/uL Hct 33.4 L (34.0-46.0) % APTT >200.0 H* (22.0-30.0) sec Assessment and Plan Assessment: 1. Left lower extremity pain 2. Possible DVT left lower extremity Plan: Dr. Cespedes was able to review imaging of venous duplex. Does not appear to be any evidence of DVT in the left lower extremity. Will discontinue heparin, no further anticoagulation recommended. Patient to follow-up with Dr. Cespedes after [facility] for repeat ultrasound. Thank you for this consultation, patient is cleared from vascular surgery for discharge. We will sign off at this time. The impression and plan of care has been dictated as directed. Dr. Cespedes I performed a history and examination of this patient, discussed the same with the dictator. I agree with the dictator's note ,documented as a scribe. Any additional findings or plans will be noted.
[2022-10-29] MEDS ORDERED: IBUPROFEN 800 MG TAB PO PRN (10:07)
[2022-10-29] MEDS ORDERED: DEXTROSE 50% SYRINGE 50 ML IVP PRN ×2 (10:08)
[2022-10-29 11:52] LABS: Glucose,Whole Blood 89 mg/dL (70-110)
[2022-10-29 12:13] VITALS: BP 131/73; PULSE 66; RESP 19; TEMP 97.9
[2022-10-29] MEDS ORDERED: INSULIN ASPART (NovoLOG) 100 UNIT/ML VIAL SQ SCH (12:30)
[2022-10-29] MEDS: SODIUM CHLORIDE 0.9% 1,000 ML IV SCH (12:49)
[2022-10-29 13:08] LABS: African American GFR (CKD) 67 (>60 ml/min/1.73 sqM); Anion Gap 5 mmol/L; Blood Urea Nitrogen 17 mg/dL (7-17); Calcium 7.6 mg/dL (8.4-10.2); Carbon Dioxide 24 mmol/L (22-30); Chloride 107 mmol/L (98-107); Glucose 87 mg/dL (74-99); Non-African American GFR(CKD) 58 (>60 ml/min/1.73 sqM); Potassium 3.2 mmol/L (3.5-5.1); Sodium 136 mmol/L (137-145)
[2022-10-29] MEDS ORDERED: POTASSIUM CHLORIDE ER 20 MEQ TAB.ER PO STA (13:28)
--- NOTE | 2022-10-29 15:45 | P.HPIM ---
History of Present Illness H&P Date: 10/29/22 This is an 87-year-old female was recently presented to the emergency department with increased left leg pain and apparently follows with Dr. Mahoney in the outpatient setting and had an ultrasound outpatient and was told there was a Wyatt's cyst behind the left knee. Patient continued to have increasing left leg pain and family brought her here for evaluation. Initially Doppler of the left leg was positive for DVT although reviewed with radiologist and suboptimal study due to patient cooperation although there is no evidence of DVT. Patient is maintained on Plavix and will continue and no need for anticoagulation at this time. Patient does follow with Dr. Mahoney in the outpatient setting with a past medical history of diabetes mellitus, hyperlipidemia, hypertension, osteoarthritis, patient reports along with daughter at the bedside the patient had a stroke approximately one year ago and has been on aspirin and Plavix since. Patient was placed on IV heparin. Labs reviewed and within normal limits. Patient was admitted under observation for vascular surgery consult. Review Of Systems: Constitutional: No fever, no chills, no night sweats. No weight change. No weakness, fatigue or lethargy. No daytime sleepiness. EENT: No headache. No blurred vision or double vision, no loss of vision. No loss of Hearing, no ringing in the ears, no dizziness. No nasal drainage or congestion. No epistaxis. No sore throat. Lungs: No shortness of breath, cough, no sputum production. No wheezing. Cardiovascular: No chest pain, no lower extremity edema. No palpitations. No paroxysmal nocturnal dyspnea. No orthopnea. No lightheadedness or dizziness. No syncopal episodes. Abdominal: No abdominal pain. No nausea, vomiting. No diarrhea. No constipation. No bloody or tarry stools.. No loss of appetite. Genitourinary: No dysuria, increased frequency, urgency. No urinary retention. Musculoskeletal: No myalgias. No muscle weakness, no gait dysfunction, no frequent falls. No back pain. No neck pain. Reports left leg pain Integumentary: No wounds, no lesions. No rash or pruritus. No unusual bruising. No change in hair or nails. Neurologic: No aphasia. No facial droop. No change in mentation. No head injury. No headache. No paralysis. No paresthesia. Psychiatric: No depression. No anxiety. No mood swings. Endocrine: No abnormal blood sugars. No weight change. No excessive sweating or thirst. No cold intolerance. PHYSICAL EXAMINATION: GENERAL: The patient is alert and oriented x4, Well developed, well nourished. Obese HEENT: Pupils are round and equally reacting to light. EOMI. no scleral icterus. No conjunctival pallor. Normocephalic, atraumatic. No pharyngeal erythema. No thyromegaly. CARDIOVASCULAR: S1 and S2 muffled PULMONARY: diminished breath sounds bilaterally with no wheezing or rhonchi noted. ABDOMEN: soft. Nontender on exam. obese. non-distended, normoactive bowel sounds. No palpable organomegaly. MUSCULOSKELETAL: No joint swelling or deformity. EXTREMITIES: No cyanosis, clubbing, or pedal edema. Left leg swelling with pain NEUROLOGICAL: Gross neurological examination did not reveal any focal deficits. SKIN: No rashes. Assessment: Left lower extremity pain with swelling possibly secondary to DVT of the left lower extremity Left knee Wyatt's cyst Diabetes mellitus, type II Hypokalemia Hypertension Osteoarthritis GI prophylaxis DVT prophylaxis Full code Plan: Recommend to continue with current medications and management with vascular surgery evaluation. Patient apparently had some left leg pain and had a ultrasound in the outpatient setting by her primary care provider and was told she had a Wyatt's cyst. Patient continued to have increasing pain and had a venous Doppler done in the ER which was a difficult study due to body habitus although initially showing positive for DVT of the left leg at the common femoral vein and deep femoral vein with mid deep femoral vein and distal femoral vein and an addendum was done which reports severe limitations due to the patient cooperation although no deep vein thrombosis proven by ultrasound andhis sisters abnormalities of the palpable left catheter abnormality. Patient is on aspirin and Plavix for past medical history of CVA and has been evaluated by vascular surgery recommending no anticoagulation at this time and outpatient follow-up for repeat ultrasound in the office. Family at the bedside and this was discussed and patient will be discharged today. Potassium found to be mildly low at 3.3 and will replace per protocol recommend outpatient follow-up with primary care provider to monitor this in the outpatient setting. The impression and plan of care has been dictated by Quiana Dumont, nurse practitioner as directed. Dr. Bullock. I have performed a history and examination and MDM of this patient, discussed the same with the dictator, and agree with the dictator's assessment and plan as written ,documented as a scribe. Based on total visit time, I have performed more than 50% of the visit. Any additional findings or plans will be noted. Past Medical History Past Medical History: Diabetes Mellitus, Hyperlipidemia, Hypertension, Osteoarthritis (OA) Additional Past Medical History / Comment(s): wound vac to rt knee History of Any Multi-Drug Resistant Organisms: None Reported Past Surgical History: Appendectomy, Cholecystectomy Additional Past Surgical History / Comment(s): Lt knee surgry Past Anesthesia/Blood Transfusion Reactions: No Reported Reaction Past Psychological History: No Psychological Hx Reported Smoking Status: Former smoker Past Alcohol Use History: None Reported Past Drug Use History: None Reported - Past Family History Mother Family Medical History: Cancer Father Family Medical History: CVA/TIA Medications and Allergies Home Medications Medication Instructions Recorded Confirmed Type Lisinopril-Hctz 20-25 mg 1 tab PO DAILY 12/03/15 10/28/22 History [Zestoretic 20-25] Gabapentin [Neurontin] 300 mg PO TID 01/14/16 10/28/22 History glyBURIDE/METFORMIN HCL 1 tab PO DAILY 11/10/21 10/28/22 History [Glucovance 5-500 mg] Clopidogrel [Plavix] 75 mg PO DAILY #30 tab 11/11/21 10/28/22 Rx Ibuprofen [Motrin] 800 mg PO Q8H PRN 10/28/22 10/28/22 History Allergies Allergy/AdvReac Type Severity Reaction Status Date / Time Penicillins Allergy Rash/Hives Verified 10/28/22 20:23 Physical Exam Vitals: Vital Signs Temp Pulse Pulse Resp BP BP Pulse Ox 10/29/22 03:50 99.3 F 65 18 124/74 97 10/29/22 01:30 18 10/29/22 01:24 97.7 F 76 16 131/70 97 10/28/22 22:25 74 16 138/90 98 10/28/22 18:12 97.5 F L 75 18 157/81 98 10/28/22 15:48 98 F 90 18 152/80 98 Intake and Output 10/28/22 10/29/22 10/29/22 22:59 06:59 14:59 Intake Total 937.318 0 Output Total 350 Balance 587.318 0 Intake: Intake, IV Titration 637.318 0 Amount Heparin Sod,Pork in 0.45% 137.318 0 NaCl 25,000 unit In 0.45 % NaCl 1 250ml.bag @ 18 UNITS/KG/HR 17.309 mls/hr IV .[id number] [facility] Rx#: [id number] Sodium Chloride 0.9% 1, 500 000 ml @ 75 mls/hr IV . [id number] [facility] Rx#:[id number] Oral 300 Output: Urine 350 Other: Voiding Method External Catheter # Voids 1 # Bowel Movements 1 1 Weight 96.162 kg 96.162 kg Results CBC & Chem 7: 10/29/22 03:42 10/29/22 11:54 Labs: Abnormal Lab Results - Last 24 Hours (Table) 10/29/22 10/29/22 Range/Units 03:42 03:42 RBC 3.59 L (3.80-5.40) m/uL Hct 33.4 L (34.0-46.0) % APTT >200.0 H* (22.0-30.0) sec Thrombosis Risk Factor Assmnt - DVT/VTE Prophylaxis DVT/VTE Prophylaxis: Pharmacologic Prophylaxis ordered - Choose All That Apply Any of the Below Risk Factors Present?: Yes Each Factor Represents 1 point: Medical pt on bed rest, Obesity (BMI >25), Swollen legs (current) Other Risk Factors: Yes Each Risk Factor Represents 3 Points: Age 75 years or older, History of DVT/PE Other congenital or acquired thrombophilia - If yes, enter type in comment: No Thrombosis Risk Factor Assessment Total Risk Factor Score: 9 Thrombosis Risk Factor Assessment Level: High Risk Assessment and Plan Time with Patient: Greater than 30
[2022-10-29] MEDS ORDERED: GABAPENTIN 300 MG CAP PO SCH (16:00)
--- NOTE | 2022-10-30 11:29 | P.DS ---
Providers Date of admission: 10/28/22 20:36 Expected date of discharge: 10/29/22 Attending physician: Janneth Ruiz Consults: 10/28/22 20:36 Consult Physician Routine Consulting Provider: Demar Wynn Consult Reason/Comments: L leg DVT Do you want consulting provider notified?: Yes Primary care physician: Piedad Tompkins MD Hospital Course: Final diagnosis Left lower extremity pain with swelling possibly secondary to DVT of the left lower extremity, no evidence of DVT on addended Doppler report Left knee Wyatt's cyst Diabetes mellitus, type II Hypokalemia Hypertension Osteoarthritis History of CVA/TIA per patient GI prophylaxis DVT prophylaxis Full code Discharge disposition Patient is being discharged in a stable condition with guarded prognosis to home. Patient will follow-up with Dr. Funez in the outpatient setting upon discharge. Patient is to also follow-up with vascular surgery Dr. Cespedes as scheduled. Total time taken is greater than 35 minutes. Hospital course This is a 87-year-old female who was recently admitted with left lower leg pain and swelling and having some difficulty with ambulation. Initial Doppler study showed positive left leg DVT although was reviewed by radiologist and vascular surgery with no definite DVT noted and somewhat suboptimal study due to limited abilities from patient movement. Vascular surgery evaluated the patient recommending outpatient follow-up with repeat ultrasound in the next 2 weeks. Patient is maintained on Plavix for previous stroke and will continue. Patient is able to get up and walk with improvement since yesterday. Patient does have a walker in the home and lives with her daughter. Refused home care. He should follow-up with primary care provider along with vascular surgery outpatient. C urrently no reports of chest pain, shortness of breath, or palpitations. Patient is afebrile. No reports of nausea or vomiting and patient is tolerating diet. Patient will be discharged home today. Physical exam: Gen: This is a 87-year-old female awake, alert and oriented 3, well-developed, well-nourished, obese HEENT: Head is atraumatic, normocephalic. Pupils equal, round. Sclerae is anict nic. NECK: Supple. No JVD. No lymphadenopathy. No thyromegaly. LUNGS: Clear to auscultation. No wheezes or rhonchi. No intercostal retractions. HEART: Regular rate and rhythm. No murmur. ABDOMEN: Soft. Bowel sounds are present. No masses. No tenderness. EXTREMITIES: No pedal edema. No calf tenderness. Left lower leg under the knee mildly tender on palpation NEUROLOGICAL: Patient is awake, alert and oriented x3. Cranial nerves 2 through 12 are grossly intact. Please refer to medication reconciliation sheet for a list of medications. The impression and plan of care has been dictated by Quiana Dumont, Nurse Practitioner as directed. Dr. Ara MD I have performed a history and examination and MDM of this patient, discussed the same with the dictator, and agree with the dictator's assessment and plan as written ,documented as a scribe. Based on total visit time, I have performed more than 50% of the visit. Patient Condition at Discharge: Stable Plan - Discharge Summary Discharge Rx Participant: No New Discharge Prescriptions: Continue Lisinopril-Hctz 20-25 mg [Zestoretic 20-25] 1 tab PO DAILY Gabapentin [Neurontin] 300 mg PO TID glyBURIDE/METFORMIN HCL [Glucovance 5-500 mg] 1 tab PO DAILY Clopidogrel [Plavix] 75 mg PO DAILY #30 tab Ibuprofen [Motrin] 800 mg PO Q8H PRN PRN Reason: Pain Discharge Medication List Lisinopril-Hctz 20-25 mg [Zestoretic 20-25] 1 tab PO DAILY 12/03/15 [History] Gabapentin [Neurontin] 300 mg PO TID 01/14/16 [History] glyBURIDE/METFORMIN HCL [Glucovance 5-500 mg] 1 tab PO DAILY 11/10/21 [History] Clopidogrel [Plavix] 75 mg PO DAILY #30 tab 11/11/21 [Rx] Ibuprofen [Motrin] 800 mg PO Q8H PRN 10/28/22 [History] Follow up Appointment(s)/Referral(s): Piedad Tompkins MD [Primary Care Provider] - 1-2 days Emilee Cespedes DO [STAFF PHYSICIAN] - 10 Days Patient Instructions/Handouts: Leg Pain (ED) Activity/Diet/Wound Care/Special Instructions: Activity Limited until follow-up Follow-up with primary care provider on discharge Follow-up with vascular surgery outpatient Continue taking medications as prescribed Elevate lower extremity while at rest Diet as per Home Need to call office ON Tuesday for Dr. Cespedes ( only in office in [email or web address] on ) Discharge Disposition: HOME SELF-CARE
== END 2022-10-29 16:05 | disposition home or self-care (01) ==
LOC: EC 15:31 → 5NMEDONC 20:36
PROVIDERS: ADMIT Hospitalist; ATTEND Hospitalist
DX: M79.662 Pain in left lower leg (principal); R22.42 Localized swelling, mass and lump, left lower limb; M71.22 Synovial cyst of popliteal space [Baker], left knee; E11.9 Type 2 diabetes mellitus without complications; I10 Essential (primary) hypertension; E78.5 Hyperlipidemia, unspecified; M19.90 Unspecified osteoarthritis, unspecified site; E87.6 Hypokalemia; E66.9 Obesity, unspecified; Z86.73 Personal history of transient ischemic attack (TIA), and cerebral infarction without residual deficits; Z87.891 Personal history of nicotine dependence; Z79.02 Long term (current) use of antithrombotics/antiplatelets; Z79.82 Long term (current) use of aspirin; Z79.899 Other long term (current) drug therapy; Z79.84 Long term (current) use of oral hypoglycemic drugs; Z88.0 Allergy status to penicillin
CPT/HCPCS: 96366 ×2; 96365; 96372; 96375; 99285; 80048; 85025; 85730; 83036; 93971; G0378 ×2; J1644 ×2; J1885

== ENCOUNTER 2023-07-31 01:53 | Emergency (ER) | payer MEDICARE ==
[2023-07-31 01:59] LABS: Glucose,Whole Blood 114 mg/dL (70-110)
[2023-07-31 03:34] LABS: Basophils % (A) 0 %; Eosinophils # (A) 0.2 k/uL (0-0.7); Eosinophils % (A) 2 %; HCT 36.7 % (34.0-46.0); Lymphocytes # (A) 3.1 k/uL (1.0-4.8); Lymphocytes % (A) 27 %; MCH 31.2 pg (25.0-35.0); MCHC 32.7 g/dL (31.0-37.0); MCV 95.5 fL (80.0-100.0); Mean Platelet Volume 9.1; Monocytes # (A) 0.7 k/uL (0-1.0); Monocytes % (A) 6 %; Neutrophils # (A) 7.5 k/uL (1.3-7.7); Neutrophils % (A) 65 %; Platelet Count 268 k/uL (150-450); RBC 3.84 m/uL (3.80-5.40); WBC 11.7 k/uL (3.8-10.6)
[2023-07-31 03:49] LABS: ALT 15 U/L (4-34); AST 28 U/L (14-36); African American GFR (CKD) 62 (>60 ml/min/1.73 sqM); Albumin 3.3 g/dL (3.5-5.0); Alkaline Phosphatase 108 U/L (38-126); Anion Gap 10 mmol/L; Blood Urea Nitrogen 17 mg/dL (7-17); Calcium 8.7 mg/dL (8.4-10.2); Carbon Dioxide 25 mmol/L (22-30); Chloride 97 mmol/L (98-107); Glucose 93 mg/dL (74-99); Non-African American GFR(CKD) 54 (>60 ml/min/1.73 sqM); Potassium 3.5 mmol/L (3.5-5.1); Sodium 132 mmol/L (137-145); Total Bilirubin 0.5 mg/dL (0.2-1.3); Total Protein 6.2 g/dL (6.3-8.2)
[2023-07-31 03:59] LABS: Magnesium 0.8 mg/dL (1.6-2.3)
[2023-07-31] MEDS: MAGNESIUM SULFATE-D5W PMX 1 GM in DEXTROSE/WATER 1 100ML.BAG IVPB SCH ×2 (04:18→05:15)
--- NOTE | 2023-07-31 04:53 | ED ---
General Adult HPI - General Chief complaint: Altered Mental Status Stated complaint: Hypoglycemia Time Seen by Provider: 07/31/23 02:03 Source: patient, EMS Mode of arrival: EMS - History of Present Illness Initial comments: This is a 88-year-old female with a past medical history including diabetes and hypertension presented to the emergency department via EMS for an episode of hypoglycemia. The patient stated that she was getting uncomfortable in bed and was noted to be agitated and she stated that when this happens her blood sugar is low. The patient stated that her daughter noticed this and called EMS. EMS did state that on their arrival, the patient's blood sugar was in the 40s and she was given an amp of glucose. On arrival, the patient was ANO 4 and stated that she denied of any acute pain or distress noted. The patient did state that she took her medications as prescribed and did eat prior to going to bed. The patient denied any other acute pain or complaints at this time. - Related Data Home Medications Medication Instructions Recorded Confirmed Lisinopril-Hctz 20-25 mg 1 tab PO DAILY 12/03/15 07/31/23 [Zestoretic 20-25] Gabapentin [Neurontin] 300 mg PO TID 01/14/16 07/31/23 glyBURIDE/METFORMIN HCL 1 tab PO DAILY 11/10/21 07/31/23 [Glucovance 5-500 mg] Ibuprofen [Motrin] 800 mg PO Q8H PRN 10/28/22 07/31/23 Previous Rx's Medication Instructions Recorded Clopidogrel [Plavix] 75 mg PO DAILY #30 tab 11/11/21 Allergies Allergy/AdvReac Type Severity Reaction Status Date / Time Penicillins Allergy Rash/Hives Verified 10/28/22 20:23 Review of Systems ROS Statement: Those systems with pertinent positive or pertinent negative responses have been documented in the HPI. ROS Other: All systems not noted in ROS Statement are negative. Past Medical History Past Medical History: Diabetes Mellitus, Hyperlipidemia, Hypertension, Osteoarthritis (OA) Additional Past Medical History / Comment(s): wound vac to rt knee History of Any Multi-Drug Resistant Organisms: None Reported Past Surgical History: Appendectomy, Cholecystectomy Additional Past Surgical History / Comment(s): Lt knee surgry Past Anesthesia/Blood Transfusion Reactions: No Reported Reaction Past Psychological History: No Psychological Hx Reported Smoking Status: Former smoker Past Alcohol Use History: None Reported Past Drug Use History: None Reported - Past Family History Mother Family Medical History: Cancer Father Family Medical History: CVA/TIA General Exam Limitations: no limitations General appearance: alert, in no apparent distress, obese Head exam: Present: atraumatic, normocephalic, normal inspection Eye exam: Present: normal appearance, PERRL Pupils: Present: normal accommodation ENT exam: Present: normal exam, normal oropharynx, mucous membranes moist Neck exam: Present: normal inspection, full ROM Respiratory exam: Present: normal lung sounds bilaterally Cardiovascular Exam: Present: regular rate, normal rhythm, normal heart sounds GI/Abdominal exam: Present: soft, normal bowel sounds Extremities exam: Present: normal inspection, full ROM Back exam: Present: normal inspection, full ROM Neurological exam: Present: alert, oriented X3, CN II-XII intact Psychiatric exam: Present: normal affect, normal mood Skin exam: Present: warm, dry Course Vital Signs 07/31/23 07/31/23 07/31/23 02:00 03:00 04:10 Temperature 98.7 F Pulse Rate 90 72 67 Respiratory 20 16 18 Rate Blood Pressure 100/77 128/90 106/50 O2 Sat by Pulse 98 97 97 Oximetry 07/31/23 05:10 Temperature Pulse Rate 70 Respiratory 16 Rate Blood Pressure 96/65 O2 Sat by Pulse 96 Oximetry Medical Decision Making - Medical Decision Making Was pt. sent in by a medical professional or institution (Dr. PA, PRODUCTION CONTROL COORDINATING CLERK, urgent care, hospital, or fci...) When possible be specific @ -No Did you speak to anyone other than the patient for history (EMS, parent, family, police, friend...)? What history was obtained from this source @ -No Did you review nursing and triage notes (agree or disagree)? Why? @ -I reviewed and agree with nursing and triage notes Were old charts reviewed (outside hosp., previous admission, EMS record, old EKG, old radiological studies, urgent care reports/EKG's, fci records)? Report findings @ -No old charts were reviewed Differential Diagnosis (chest pain, altered mental status, abdominal pain women, abdominal pain men, vaginal bleeding, weakness, fever, dyspnea, syncope, headache, dizziness, GI bleed, back pain, seizure, CVA, palpatations, mental health)? @ -Hypoglycemia, electrolyte abnormality, UTI EKG interpreted by me (3pts min.). @ -None X-rays interpreted by me (1pt min.). @ -None done CT interpreted by me (1pt min.). @ -None done U/S interpreted by me (1pt. min.). @ -None done What testing was considered but not performed or refused? (CT, X-rays, U/S, labs)? Why? @ -None What meds were considered but not given or refused? Why? @ -None Did you discuss the management of the patient with other professionals (professionals i.e. Dr., PA, PRODUCTION CONTROL COORDINATING CLERK, lab, RT, psych nurse, social media sr strategy manager, air sampler, teacher, reserve officer, watch case polisher)? Give summary @ -No Was smoking cessation discussed for >3mins.? @ -No Was critical care preformed (if so, how long)? @ -No Were there social determinants of health that impacted care today? How? (Homelessness, low income, unemployed, alcoholism, drug addiction, transportation, low edu. Level, literacy, decrease access to med. care, [facility], rehab)? @ -No Was there de-escalation of care discussed even if they declined (Discuss DNR or withdrawal of care, Hospice)? DNR status @ -No What co-morbidities impacted this encounter? (DM, HTN, Smoking, COPD, CAD, Cancer, CVA, ARF, Chemo, Hep., AIDS, mental health diagnosis, sleep apnea, morbid obesity)? @ -Diabetes, hypertension Was patient admitted / discharged? Hospital course, mention meds given and route, prescriptions, significant lab abnormalities, going to OR and other pertinent info. @ -The patient was seen and evaluated emergency department. Physical exam, the patient was resting in bed without any acute distress. Vital signs were stable. Laboratory workup was obtained and did show a decreased magnesium but this was replaced in the emergency department. The patient's blood sugar remained stable and the patient also continued to remain stable emergency depar tment during observation. While in the emergency department, the patient was never able to give us a urine sample and as the patient had no urinary symptoms, there was no need to wait for urinalysis at this time. The patient was stable for discharge home and all of her questions were answered appropriately. The patient was discharged in stable condition. Undiagnosed new problem with uncertain prognosis? @ -No Drug Therapy requiring intensive monitoring for toxicity (Heparin, Nitro, Insulin, Cardizem)? @ -No Were any procedures done? @ -No Diagnosis/symptom? @ -Hypoglycemia, resolved, hypomagnesemia Acute, or Chronic, or Acute on Chronic? @ -Acute Uncomplicated (without systemic symptoms) or Complicated (systemic symptoms)? @ -Uncomplicated Side effects of treatment? @ -No Exacerbation, Progression, or Severe Exacerbation? @ -No Poses a threat to life or bodily function? How? (Chest pain, [place], [place], pneumonia, PE, COPD, DKA, ARF, appy, cholecystitis, CVA, Diverticulitis, Homicidal, Suicidal, threat to staff... and all critical care pts) @ -No - Lab Data Result diagrams: 07/31/23 02:03 07/31/23 03:37 Lab Results 07/31/23 07/31/23 07/31/23 Range/Units 01:56 02:03 03:37 WBC 11.7 H (3.8-10.6) k/uL RBC 3.84 (3.80-5.40) m/uL Hgb 12.0 (11.4-16.0) gm/dL Hct 36.7 (34.0-46.0) % MCV 95.5 (80.0-100.0) fL MCH 31.2 (25.0-35.0) pg MCHC 32.7 (31.0-37.0) g/dL RDW 13.0 (11.5-15.5) % Plt Count 268 (150-450) k/uL MPV 9.1 Neutrophils % 65 % Lymphocytes % 27 % Monocytes % 6 % Eosinophils % 2 % Basophils % 0 % Neutrophils # 7.5 (1.3-7.7) k/uL Lymphocytes # 3.1 (1.0-4.8) k/uL Monocytes # 0.7 (0-1.0) k/uL Eosinophils # 0.2 (0-0.7) k/uL Basophils # 0.0 (0-0.2) k/uL Sodium 132 L (137-145) mmol/L Potassium 3.5 (3.5-5.1) mmol/L Chloride 97 L (98-107) mmol/L Carbon Dioxide 25 (22-30) mmol/L Anion Gap 10 mmol/L BUN 17 (7-17) mg/dL Creatinine 0.95 (0.52-1.04) mg/dL Est GFR (CKD-EPI)AfAm 62 (>60 ml/min/1.73 sqM) Est GFR (CKD-EPI)NonAf 54 (>60 ml/min/1.73 sqM) Glucose 93 (74-99) mg/dL POC Glucose (mg/dL) 114 H (70-110) mg/dL POC Glu Survey Compiler ID Piedad Machado Calcium 8.7 (8.4-10.2) mg/dL Magnesium 0.8 L* (1.6-2.3) mg/dL Total Bilirubin 0.5 (0.2-1.3) mg/dL AST 28 (14-36) U/L ALT 15 (4-34) U/L Alkaline Phosphatase 108 (38-126) U/L Total Protein 6.2 L (6.3-8.2) g/dL Albumin 3.3 L (3.5-5.0) g/dL 07/31/23 Range/Units 05:36 WBC (3.8-10.6) k/uL RBC (3.80-5.40) m/uL Hgb (11.4-16.0) gm/dL Hct (34.0-46.0) % MCV (80.0-100.0) fL MCH (25.0-35.0) pg MCHC (31.0-37.0) g/dL RDW (11.5-15.5) % Plt Count (150-450) k/uL MPV Neutrophils % % Lymphocytes % % Monocytes % % Eosinophils % % Basophils % % Neutrophils # (1.3-7.7) k/uL Lymphocytes # (1.0-4.8) k/uL Monocytes # (0-1.0) k/uL Eosinophils # (0-0.7) k/uL Basophils # (0-0.2) k/uL Sodium (137-145) mmol/L Potassium (3.5-5.1) mmol/L Chloride (98-107) mmol/L Carbon Dioxide (22-30) mmol/L Anion Gap mmol/L BUN (7-17) mg/dL Creatinine (0.52-1.04) mg/dL Est GFR (CKD-EPI)AfAm (>60 ml/min/1.73 sqM) Est GFR (CKD-EPI)NonAf (>60 ml/min/1.73 sqM) Glucose (74-99) mg/dL POC Glucose (mg/dL) 95 (70-110) mg/dL POC Glu Survey Compiler ID Fosterarjun Piedad Calcium (8.4-10.2) mg/dL Magnesium (1.6-2.3) mg/dL Total Bilirubin (0.2-1.3) mg/dL AST (14-36) U/L ALT (4-34) U/L Alkaline Phosphatase (38-126) U/L Total Protein (6.3-8.2) g/dL Albumin (3.5-5.0) g/dL Disposition Clinical Impression: Hypoglycemia, Hypomagnesemia Disposition: HOME SELF-CARE Condition: Stable Instructions (If sedation given, give patient instructions): Hypoglycemia in a Person with Diabetes (DC), Hypomagnesemia (ED) Is patient prescribed a controlled substance at d/c from ED?: No Referrals: Piedad Tompkins MD [Primary Care Provider] - 1-2 days Time of Disposition: 05:00
[2023-07-31 05:37] LABS: Glucose,Whole Blood 95 mg/dL (70-110)
[2023-07-31 06:06] VITALS: BP 124/81; PULSE 76; RESP 18; TEMP 98.5
== END 2023-07-31 06:05 | disposition home or self-care (01) ==
LOC: EC 01:53
DX: E11.649 Type 2 diabetes mellitus with hypoglycemia without coma (principal); E83.42 Hypomagnesemia; I10 Essential (primary) hypertension; E66.9 Obesity, unspecified; Z68.34 Body mass index [BMI] 34.0-34.9, adult; Z79.84 Long term (current) use of oral hypoglycemic drugs; Z79.899 Other long term (current) drug therapy; Z87.891 Personal history of nicotine dependence; Z88.0 Allergy status to penicillin; Z90.49 Acquired absence of other specified parts of digestive tract
CPT/HCPCS: 36415; 80053; 83735; 85025; 99285; 96365; 96366; J3475

== ENCOUNTER 2023-11-10 20:45 | Inpatient (IN) | payer MEDICARE ==
[2023-11-10 20:53] LABS: Glucose,Whole Blood 68 mg/dL (70-110)
--- NOTE | 2023-11-10 21:16 | ED ---
General Adult HPI - General Chief complaint: Recheck/Abnormal Lab/Rx Stated complaint: Hyperglycemia Time Seen by Provider: 11/10/23 20:53 Source: patient, EMS Mode of arrival: EMS Limitations: no limitations - History of Present Illness Initial comments: This patient is a 88-year-old woman who is brought to have evaluation for recurrent hypoglycemia and recent falls. The patient states that her blood sugar had gotten low and she had fallen. The patient fell striking her face. She does take Plavix and she states she bleeds more than usual. She complains of some frontal headache. She denies neck pain back, chest abdomen or extremity pains. -: days(s) Location: face Quality: dull Consistency: constant Improves with: none Worsens with: none Associated Symptoms: confusion Treatments Prior to Arrival: other (Glucose) - Related Data Home Medications Medication Instructions Recorded Confirmed Ibuprofen [Motrin] 800 mg PO Q8H PRN 10/28/22 11/11/23 Previous Rx's Medication Instructions Recorded Clopidogrel [Plavix] 75 mg PO DAILY #30 tab 11/11/21 Acetaminophen Tab [Tylenol] 650 mg PO Q6HR PRN tab 11/17/23 Ascorbic Acid [Vitamin C] 500 mg PO DAILY #30 tab 11/17/23 Cholecalciferol [Vitamin D3 (125 125 mcg PO DAILY #30 tab 11/17/23 Mcg = 5000 Iu)] Famotidine [Pepcid] 20 mg PO DAILY #30 tab 11/17/23 Magnesium Oxide [Mag-Ox] 400 mg PO BID #60 tab 11/17/23 Nystatin 100,000 Unit/gm Powd 1 applic TOPICAL TID #1 each 11/17/23 [Mycostatin Powder] QUEtiapine [SEROquel] 12.5 mg PO HS PRN #15 tab 11/17/23 Zinc Sulfate [Orazinc] 220 mg PO DAILY 15 Days #15 cap 11/17/23 lisinopriL [Zestril] 10 mg PO DAILY #30 tab 11/17/23 metFORMIN HCL 500 mg PO BID 30 Days #60 tablet 11/17/23 Allergies Allergy/AdvReac Type Severity Reaction Status Date / Time Penicillins Allergy Rash/Hives Verified 11/11/23 08:57 Review of Systems ROS Statement: Those systems with pertinent positive or pertinent negative responses have been documented in the HPI. ROS Other: All systems not noted in ROS Statement are negative. Constitutional: Reports: weakness. Denies: fever, chills Eyes: Denies: eye pain, vision change ENT: Denies: congestion Respiratory: Denies: cough, dyspnea Cardiovascular: Denies: chest pain, palpitations, edema Gastrointestinal: Denies: abdominal pain, nausea, vomiting, diarrhea Genitourinary: Denies: dysuria, hematuria Musculoskeletal: Denies: back pain Skin: Denies: rash Neurological: Reports: headache. Denies: weakness, numbness, confusion Past Medical History Past Medical History: Diabetes Mellitus, Hyperlipidemia, Hypertension, Osteoarthritis (OA) Additional Past Medical History / Comment(s): wound vac to rt knee History of Any Multi-Drug Resistant Organisms: None Reported Past Surgical History: Appendectomy, Cholecystectomy Additional Past Surgical History / Comment(s): Lt knee surgry Past Anesthesia/Blood Transfusion Reactions: No Reported Reaction Past Psychological History: No Psychological Hx Reported Smoking Status: Former smoker Past Alcohol Use History: None Reported Past Drug Use History: None Reported - Past Family History Mother Family Medical History: Cancer Father Family Medical History: CVA/TIA General Exam Limitations: no limitations General appearance: alert, in no apparent distress Head exam: Present: normocephalic Eye exam: Present: PERRL, EOMI, periorbital swelling, periorbital tenderness. Absent: scleral icterus, conjunctival injection ENT exam: Present: normal oropharynx Neck exam: Present: normal inspection, full ROM. Absent: tenderness Respiratory exam: Present: normal lung sounds bilaterally. Absent: respiratory distress, wheezes, rales, rhonchi, stridor, chest wall tenderness, accessory muscle use Cardiovascular Exam: Present: regular rate, normal rhythm, normal heart sounds. Absent: systolic murmur, diastolic murmur, rubs, gallop GI/Abdominal exam: Present: soft. Absent: distended, tenderness, guarding, rebound, rigid, mass Extremities exam: Present: normal inspection, normal capillary refill. Absent: pedal edema, calf tenderness Back exam: Present: normal inspection. Absent: CVA tenderness (R), CVA tenderness (L) Neurological exam: Present: alert, oriented X3, CN II-XII intact. Absent: motor sensory deficit Skin exam: Present: warm, dry, intact, normal color. 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 - EKG Results: EKG: interpreted by ERMD, sinus rhythm (Rate 64 bpm), normal axis - Blocks, [place], Hypertrophy, ST Abn: QRS axis and voltage: low voltage (<0.5 MV total QRS and <1.0 MV in each precordial lead) Medical Decision Making - Medical Decision Making The patient had CT of the brain which I interpreted as showing atrophy and increased ventricles without acute bleed or bony trauma. Was pt. sent in by a medical professional or institution (, PA, RN OR LPN, urgent care, hospital, or correction...) When possible be specific @ -[No] Did you speak to anyone other than the patient for history (EMS, parent, family, police, friend...)? What history was obtained from this source @ -[No] Did you review nursing and triage notes (agree or disagree)? Why? @ -[I reviewed and agree with nursing and triage notes] Were old charts reviewed (outside hosp., previous admission, EMS record, old EKG, old radiological studies, urgent care reports/EKG's, correction records)? Report findings @ -[No old charts were reviewed] Differential Diagnosis (chest pain, altered mental status, abdominal pain women, abdominal pain men, vaginal bleeding, weakness, fever, dyspnea, syncope, headache, dizziness, GI bleed, back pain, seizure, CVA, palpatations, mental health, musculoskeletal)? @ -[Differential Weakness: Hypoglycemia, shock, sepsis, hyponatremia, anemia, infection, NC, ETOH, adverse medicine reaction, overdose, stroke, this is not meant to be an all-inclusive list. EKG interpreted by me (3pts min.). @ -[As above] X-rays interpreted by me (1pt min.). @ -[None done] CT interpreted by me (1pt min.). @ -[I interpreted as above U/S interpreted by me (1pt. min.). @ -[None done] What testing was considered but not performed or refused? (CT, X-rays, U/S, lab s)? Why? @ -[None] What meds were considered but not given or refused? Why? @ -[None] Did you discuss the management of the patient with other professionals (professionals i.e. , PA, RN OR LPN, lab, RT, psych nurse, social media sr strategy manager, night supervisor, teacher, chief sustainability officer, disease case manager rn)? Give summary @ -[Case discussed with admitting physician and treatment recommendations are incorporated Was smoking cessation discussed for >3mins.? @ -[No] Was critical care preformed (if so, how long)? @ -[No] Were there social determinants of health that impacted care today? How? (Homelessness, low income, unemployed, alcoholism, drug addiction, transportation, low edu. Level, literacy, decrease access to med. care, m[facility], rehab)? @ -[No] Was there de-escalation of care discussed even if they declined (Discuss DNR or withdrawal of care, Hospice)? DNR status @ -[No] What co-morbidities impacted this encounter? (DM, HTN, Smoking, COPD, CAD, Cancer, CVA, ARF, Chemo, Hep., AIDS, mental health diagnosis, sleep apnea, morbid obesity)? @ -[Diabetes Was patient admitted / discharged? Hospital course, mention meds given and route, prescriptions, significant lab abnormalities, going to OR and other pertinent info. @ -[This patient is an 88-year-old woman presenting after having increasing number of falls at home. She does have generalized weakness and fatigue. Initial workup not revealing any trauma. The patient will be admitted for correction of electrolytes and to consider possible placement given increasing number of falls. Undiagnosed new problem with uncertain prognosis? @ -[No] Drug Therapy requiring intensive monitoring for toxicity (Heparin, Nitro, Insulin, Cardizem)? @ -[No] Were any procedures done? @ -[No] Diagnosis/symptom? @ -[Generalized weakness and fatigue Minor head injury Hyponatremia Hypokalemia Hypomagnesemia Hypoglycemia Facial contusion Recent fall Acute, or Chronic, or Acute on Chronic? @ -[Acute Uncomplicated (without systemic symptoms) or Complicated (systemic symptoms)? @ -[Uncomplicated Side effects of treatment? @ -[No] Exacerbation, Progression, or Severe Exacerbation? @ -[No] Poses a threat to life or bodily function? How? (Chest pain, USA, NC, pneumonia, PE, COPD, DKA, ARF, appy, cholecystitis, CVA, Diverticulitis, Homicidal, Suicidal, threat to staff... and all critical care pts) @ -[No] - Lab Data Result diagrams: 11/13/23 12:26 11/17/23 07:06 Lab Results 11/10/23 11/10/23 11/10/23 Range/Units 20:51 21:24 21:24 WBC 6.1 (3.8-10.6) k/uL RBC 3.69 L (3.80-5.40) m/uL Hgb 12.0 (11.4-16.0) gm/dL Hct 34.1 (34.0-46.0) % MCV 92.5 (80.0-100.0) fL MCH 32.6 (25.0-35.0) pg MCHC 35.3 (31.0-37.0) g/dL RDW 12.1 (11.5-15.5) % Plt Count 191 (150-450) k/uL MPV 8.8 Neutrophils % 74 % Lymphocytes % 15 % Monocytes % 9 % Eosinophils % 0 % Basophils % 0 % Neutrophils # 4.5 (1.3-7.7) k/uL Lymphocytes # 0.9 L (1.0-4.8) k/uL Monocytes # 0.6 (0-1.0) k/uL Eosinophils # 0.0 (0-0.7) k/uL Basophils # 0.0 (0-0.2) k/uL Sodium 126 L (137-145) mmol/L Potassium 3.1 L (3.5-5.1) mmol/L Chloride 91 L (98-107) mmol/L Carbon Dioxide 23 (22-30) mmol/L Anion Gap 12 mmol/L BUN 16 (7-17) mg/dL Creatinine 0.90 (0.52-1.04) mg/dL Est GFR (CKD-EPI) (>=60) Est GFR (CKD-EPI)AfAm 66 (>60 ml/min/1.73 sqM) Est GFR (CKD-EPI)NonAf 57 (>60 ml/min/1.73 sqM) BUN/Creatinine Ratio (12.00-20.00) Ratio Glucose 39 L* (74-99) mg/dL POC Glucose (mg/dL) 68 L (70-110) mg/dL POC Glu Laundry Agent ID Dino Ceja Estimated Ave Glu mg/dL mg/dL Hemoglobin A1c (<=6.0) % Plasma Lactic Acid Fabio (0.7-2.0) mmol/L Calcium 8.4 (8.4-10.2) mg/dL Magnesium 0.9 L* (1.6-2.3) mg/dL Total Bilirubin 0.4 (0.2-1.3) mg/dL AST 32 (14-36) U/L ALT 20 (4-34) U/L Alkaline Phosphatase 92 (38-126) U/L Troponin I (0.000-0.034) ng/mL Total Protein 5.7 L (6.3-8.2) g/dL Albumin 3.2 L (3.5-5.0) g/dL Globulin g/dL Albumin/Globulin Ratio Vitamin B12 (200.0-944.0) pg/mL RBC Folate (280 - 791) ng/mL Procalcitonin (0.02-0.09) ng/mL TSH (0.465-4.680) mIU/L Urine Color Urine Appearance (Clear) Urine pH (5.0-8.0) Ur Specific [place] (1.001-1.035) Urine Protein (Negative) Urine Glucose (UA) (Negative) Urine Ketones (Negative) Urine Blood (Negative) Urine Nitrite (Negative) Urine Bilirubin (Negative) Urine Urobilinogen (<2.0) mg/dL Ur Leukocyte Esterase (Negative) Urine RBC (0-5) /hpf Urine WBC (0-5) /hpf Ur Squamous Epith Cells (0-4) /hpf Urine Bacteria (None) /hpf Influenza Type A (PCR) (Not Detectd) Influenza Type B (PCR) (Not Detectd) RSV (PCR) (Not Detectd) SARS-CoV-2 (PCR) (Not Detectd) 11/10/23 11/10/23 11/10/23 Range/Units 21:24 21:24 21:42 WBC (3.8-10.6) k/uL RBC (3.80-5.40) m/uL Hgb (11.4-16.0) gm/dL Hct (34.0-46.0) % MCV (80.0-100.0) fL MCH (25.0-35.0) pg MCHC (31.0-37.0) g/dL RDW (11.5-15.5) % Plt Count (150-450) k/uL MPV Neutrophils % % Lymphocytes % % Monocytes % % Eosinophils % % Basophils % % Neutrophils # (1.3-7.7) k/uL Lymphocytes # (1.0-4.8) k/uL Monocytes # (0-1.0) k/uL Eosinophils # (0-0.7) k/uL Basophils # (0-0.2) k/uL Sodium (137-145) mmol/L Potassium (3.5-5.1) mmol/L Chloride (98-107) mmol/L Carbon Dioxide (22-30) mmol/L Anion Gap mmol/L BUN (7-17) mg/dL Creatinine (0.52-1.04) mg/dL Est GFR (CKD-EPI) (>=60) Est GFR (CKD-EPI)AfAm (>60 ml/min/1.73 sqM) Est GFR (CKD-EPI)NonAf (>60 ml/min/1.73 sqM) BUN/Creatinine Ratio (12.00-20.00) Ratio Glucose (74-99) mg/dL POC Glucose (mg/dL) 47 L (70-110) mg/dL POC Glu Laundry Agent Dino Myles Estimated Ave Glu mg/dL mg/dL Hemoglobin A1c (<=6.0) % Plasma Lactic Acid Fabio 1.5 (0.7-2.0) mmol/L Calcium (8.4-10.2) mg/dL Magnesium (1.6-2.3) mg/dL Total Bilirubin (0.2-1.3) mg/dL AST (14-36) U/L ALT (4-34) U/L Alkaline Phosphatase (38-126) U/L Troponin I <0.012 (0.000-0.034) ng/mL Total Protein (6.3-8.2) g/dL Albumin (3.5-5.0) g/dL Globulin g/dL Albumin/Globulin Ratio Vitamin B12 (200.0-944.0) pg/mL RBC Folate (280 - 791) ng/mL Procalcitonin (0.02-0.09) ng/mL TSH (0.465-4.680) mIU/L Urine Color Urine Appearance (Clear) Urine pH (5.0-8.0) Ur Specific [place] (1.001-1.035) Urine Protein (Negative) Urine Glucose (UA) (Negative) Urine Ketones (Negative) Urine Blood (Negative) Urine Nitrite (Negative) Urine Bilirubin (Negative) Urine Urobilinogen (<2.0) mg/dL Ur Leukocyte Esterase (Negative) Urine RBC (0-5) /hpf Urine WBC (0-5) /hpf Ur Squamous Epith Cells (0-4) /hpf Urine Bacteria (None) /hpf Influenza Type A (PCR) (Not Detectd) Influenza Type B (PCR) (Not Detectd) RSV (PCR) (Not Detectd) SARS-CoV-2 (PCR) (Not Detectd) 11/10/23 11/10/23 11/11/23 Range/Units 23:02 23:29 00:11 WBC (3.8-10.6) k/uL RBC (3.80-5.40) m/uL Hgb (11.4-16.0) gm/dL Hct (34.0-46.0) % MCV (80.0-100.0) fL MCH (25.0-35.0) pg MCHC (31.0-37.0) g/dL RDW (11.5-15.5) % Plt Count (150-450) k/uL MPV Neutrophils % % Lymphocytes % % Monocytes % % Eosinophils % % Basophils % % Neutrophils # (1.3-7.7) k/uL Lymphocytes # (1.0-4.8) k/uL Monocytes # (0-1.0) k/uL Eosinophils # (0-0.7) k/uL Basophils # (0-0.2) k/uL Sodium (137-145) mmol/L Potassium (3.5-5.1) mmol/L Chloride (98-107) mmol/L Carbon Dioxide (22-30) mmol/L Anion Gap mmol/L BUN (7-17) mg/dL Creatinine (0.52-1.04) mg/dL Est GFR (CKD-EPI) (>=60) Est GFR (CKD-EPI)AfAm (>60 ml/min/1.73 sqM) Est GFR (CKD-EPI)NonAf (>60 ml/min/1.73 sqM) BUN/Creatinine Ratio (12.00-20.00) Ratio Glucose (74-99) mg/dL POC Glucose (mg/dL) 69 L 69 L 77 (70-110) mg/dL POC Glu Laundry Agent Dino Myles Francesca Bousley, Kyle Estimated Ave Glu mg/dL mg/dL Hemoglobin A1c (<=6.0) % Plasma Lactic Acid Fabio (0.7-2.0) mmol/L Calcium (8.4-10.2) mg/dL Magnesium (1.6-2.3) mg/dL Total Bilirubin (0.2-1.3) mg/dL AST (14-36) U/L ALT (4-34) U/L Alkaline Phosphatase (38-126) U/L Troponin I (0.000-0.034) ng/mL Total Protein (6.3-8.2) g/dL Albumin (3.5-5.0) g/dL Globulin g/dL Albumin/Globulin Ratio Vitamin B12 (200.0-944.0) pg/mL RBC Folate (280 - 791) ng/mL Procalcitonin (0.02-0.09) ng/mL TSH (0.465-4.680) mIU/L Urine Color Urine Appearance (Clear) Urine pH (5.0-8.0) Ur Specific [place] (1.001-1.035) Urine Protein (Negative) Urine Glucose (UA) (Negative) Urine Ketones (Negative) Urine Blood (Negative) Urine Nitrite (Negative) Urine Bilirubin (Negative) Urine Urobilinogen (<2.0) mg/dL Ur Leukocyte Esterase (Negative) Urine RBC (0-5) /hpf Urine WBC (0-5) /hpf Ur Squamous Epith Cells (0-4) /hpf Urine Bacteria (None) /hpf Influenza Type A (PCR) (Not Detectd) Influenza Type B (PCR) (Not Detectd) RSV (PCR) (Not Detectd) SARS-CoV-2 (PCR) (Not Detectd) 11/11/23 11/11/23 11/11/23 Range/Units 03:42 05:08 06:04 WBC (3.8-10.6) k/uL RBC (3.80-5.40) m/uL Hgb (11.4-16.0) gm/dL Hct (34.0-46.0) % MCV (80.0-100.0) fL MCH (25.0-35.0) pg MCHC (31.0-37.0) g/dL RDW (11.5-15.5) % Plt Count (150-450) k/uL MPV Neutrophils % % Lymphocytes % % Monocytes % % Eosinophils % % Basophils % % Neutrophils # (1.3-7.7) k/uL Lymphocytes # (1.0-4.8) k/uL Monocytes # (0-1.0) k/uL Eosinophils # (0-0.7) k/uL Basophils # (0-0.2) k/uL Sodium (137-145) mmol/L Potassium (3.5-5.1) mmol/L Chloride (98-107) mmol/L Carbon Dioxide (22-30) mmol/L Anion Gap mmol/L BUN (7-17) mg/dL Creatinine (0.52-1.04) mg/dL Est GFR (CKD-EPI) (>=60) Est GFR (CKD-EPI)AfAm (>60 ml/min/1.73 sqM) Est GFR (CKD-EPI)NonAf (>60 ml/min/1.73 sqM) BUN/Creatinine Ratio (12.00-20.00) Ratio Glucose (74-99) mg/dL POC Glucose (mg/dL) 48 L 81 79 (70-110) mg/dL POC Glu Laundry Agent ID Bousley, Dino Bousley, Dino Bousley, Dino Estimated [address] Glu mg/dL mg/dL Hemoglobin A1c (<=6.0) % Plasma Lactic Acid Fabio (0.7-2.0) mmol/L Calcium (8.4-10.2) mg/dL Magnesium (1.6-2.3) mg/dL Total Bilirubin (0.2-1.3) mg/dL AST (14-36) U/L ALT (4-34) U/L Alkaline Phosphatase (38-126) U/L Troponin I (0.000-0.034) ng/mL Total Protein (6.3-8.2) g/dL Albumin (3.5-5.0) g/dL Globulin g/dL Albumin/Globulin Ratio Vitamin B12 (200.0-944.0) pg/mL RBC Folate (280 - 791) ng/mL Procalcitonin (0.02-0.09) ng/mL TSH (0.465-4.680) mIU/L Urine Color Urine Appearance (Clear) Urine pH (5.0-8.0) Ur Specific [place] (1.001-1.035) Urine Protein (Negative) Urine Glucose (UA) (Negative) Urine Ketones (Negative) Urine Blood (Negative) Urine Nitrite (Negative) Urine Bilirubin (Negative) Urine Urobilinogen (<2.0) mg/dL Ur Leukocyte Esterase (Negative) Urine RBC (0-5) /hpf Urine WBC (0-5) /hpf Ur Squamous Epith Cells (0-4) /hpf Urine Bacteria (None) /hpf Influenza Type A (PCR) (Not Detectd) Influenza Type B (PCR) (Not Detectd) RSV (PCR) (Not Detectd) SARS-CoV-2 (PCR) (Not Detectd) 11/11/23 11/11/23 11/11/23 Range/Units 06:45 06:45 07:20 WBC 6.7 (3.8-10.6) k/uL RBC 3.69 L (3.80-5.40) m/uL Hgb 11.6 (11.4-16.0) gm/dL Hct 34.1 (34.0-46.0) % MCV 92.3 (80.0-100.0) fL MCH 31.4 (25.0-35.0) pg MCHC 34.0 (31.0-37.0) g/dL RDW 12.2 (11.5-15.5) % Plt Count 178 (150-450) k/uL MPV 9.3 Neutrophils % 69 % Lymphocytes % 20 % Monocytes % 10 % Eosinophils % 0 % Basophils % 0 % Neutrophils # 4.7 (1.3-7.7) k/uL Lymphocytes # 1.3 (1.0-4.8) k/uL Monocytes # 0.6 (0-1.0) k/uL Eosinophils # 0.0 (0-0.7) k/uL Basophils # 0.0 (0-0.2) k/uL Sodium 125 L (137-145) mmol/L Potassium 3.7 (3.5-5.1) mmol/L Chloride 91 L (98-107) mmol/L Carbon Dioxide 24 (22-30) mmol/L Anion Gap 10 mmol/L BUN 14 (7-17) mg/dL Creatinine 0.83 (0.52-1.04) mg/dL Est GFR (CKD-EPI) (>=60) Est GFR (CKD-EPI)AfAm 73 (>60 ml/min/1.73 sqM) Est GFR (CKD-EPI)NonAf 63 (>60 ml/min/1.73 sqM) BUN/Creatinine Ratio (12.00-20.00) Ratio Glucose 60 L (74-99) mg/dL POC Glucose (mg/dL) 61 L (70-110) mg/dL POC Glu Laundry Agent ID Nancy Womack Estimated Ave Glu mg/dL mg/dL Hemoglobin A1c (<=6.0) % Plasma Lactic Acid Fabio (0.7-2.0) mmol/L Calcium 8.2 L (8.4-10.2) mg/dL Magnesium (1.6-2.3) mg/dL Total Bilirubin 0.4 (0.2-1.3) mg/dL AST 31 (14-36) U/L ALT 18 (4-34) U/L Alkaline Phosphatase 91 (38-126) U/L Troponin I (0.000-0.034) ng/mL Total Protein 5.5 L (6.3-8.2) g/dL Albumin 2.9 L (3.5-5.0) g/dL Globulin 2.6 g/dL Albumin/Globulin Ratio 1.1 Vitamin B12 (200.0-944.0) pg/mL RBC Folate (280 - 791) ng/mL Procalcitonin (0.02-0.09) ng/mL TSH (0.465-4.680) mIU/L Urine Color Urine Appearance (Clear) Urine pH (5.0-8.0) Ur Specific [place] (1.001-1.035) Urine Protein (Negative) Urine Glucose (UA) (Negative) Urine Ketones (Negative) Urine Blood (Negative) Urine Nitrite (Negative) Urine Bilirubin (Negative) Urine Urobilinogen (<2.0) mg/dL Ur Leukocyte Esterase (Negative) Urine RBC (0-5) /hpf Urine WBC (0-5) /hpf Ur Squamous Epith Cells (0-4) /hpf Urine Bacteria (None) /hpf Influenza Type A (PCR) (Not Detectd) Influenza Type B (PCR) (Not Detectd) RSV (PCR) (Not Detectd) SARS-CoV-2 (PCR) (Not Detectd) 11/11/23 11/11/23 11/11/23 Range/Units 09:16 10:54 12:10 WBC (3.8-10.6) k/uL RBC (3.80-5.40) m/uL Hgb (11.4-16.0) gm/dL Hct (34.0-46.0) % MCV (80.0-100.0) fL MCH (25.0-35.0) pg MCHC (31.0-37.0) g/dL RDW (11.5-15.5) % Plt Count (150-450) k/uL MPV Neutrophils % % Lymphocytes % % Monocytes % % Eosinophils % % Basophils % % Neutrophils # (1.3-7.7) k/uL Lymphocytes # (1.0-4.8) k/uL Monocytes # (0-1.0) k/uL Eosinophils # (0-0.7) k/uL Basophils # (0-0.2) k/uL Sodium (137-145) mmol/L Potassium (3.5-5.1) mmol/L Chloride (98-107) mmol/L Carbon Dioxide (22-30) mmol/L Anion Gap mmol/L BUN (7-17) mg/dL Creatinine (0.52-1.04) mg/dL Est GFR (CKD-EPI) (>=60) Est GFR (CKD-EPI)AfAm (>60 ml/min/1.73 sqM) Est GFR (CKD-EPI)NonAf (>60 ml/min/1.73 sqM) BUN/Creatinine Ratio (12.00-20.00) Ratio Glucose (74-99) mg/dL POC Glucose (mg/dL) 65 L 95 (70-110) mg/dL POC Glu Laundry Agent JADA Kaur, Elizabeth Kaur, Elizabeth Estimated Ave Glu mg/dL mg/dL Hemoglobin A1c (<=6.0) % Plasma Lactic Acid Fabio (0.7-2.0) mmol/L Calcium (8.4-10.2) mg/dL Magnesium (1.6-2.3) mg/dL Total Bilirubin (0.2-1.3) mg/dL AST (14-36) U/L ALT (4-34) U/L Alkaline Phosphatase (38-126) U/L Troponin I (0.000-0.034) ng/mL Total Protein (6.3-8.2) g/dL Albumin (3.5-5.0) g/dL Globulin g/dL Albumin/Globulin Ratio Vitamin B12 (200.0-944.0) pg/mL RBC Folate (280 - 791) ng/mL Procalcitonin (0.02-0.09) ng/mL TSH (0.465-4.680) mIU/L Urine Color Colorless Urine Appearance Cloudy H (Clear) Urine pH 7.5 (5.0-8.0) Ur Specific [place] 1.009 (1.001-1.035) Urine Protein Trace H (Negative) Urine Glucose (UA) Negative (Negative) Urine Ketones Negative (Negative) Urine Blood Trace H (Negative) Urine Nitrite Negative (Negative) Urine Bilirubin Negative (Negative) Urine Urobilinogen <2.0 (<2.0) mg/dL Ur Leukocyte Esterase Large H (Negative) Urine RBC 2 (0-5) /hpf Urine WBC 23 H (0-5) /hpf Ur Squamous Epith Cells <1 (0-4) /hpf Urine Bacteria Few H (None) /hpf Influenza Type A (PCR) (Not Detectd) Influenza Type B (PCR) (Not Detectd) RSV (PCR) (Not Detectd) SARS-CoV-2 (PCR) (Not Detectd) 11/11/23 11/11/23 11/11/23 Range/Units 12:11 12:20 16:46 WBC (3.8-10.6) k/uL RBC (3.80-5.40) m/uL Hgb (11.4-16.0) gm/dL Hct (34.0-46.0) % MCV (80.0-100.0) fL MCH (25.0-35.0) pg MCHC (31.0-37.0) g/dL RDW (11.5-15.5) % Plt Count (150-450) k/uL MPV Neutrophils % % Lymphocytes % % Monocytes % % Eosinophils % % Basophils % % Neutrophils # (1.3-7.7) k/uL Lymphocytes # (1.0-4.8) k/uL Monocytes # (0-1.0) k/uL Eosinophils # (0-0.7) k/uL Basophils # (0-0.2) k/uL Sodium (137-145) mmol/L Potassium (3.5-5.1) mmol/L Chloride (98-107) mmol/L Carbon Dioxide (22-30) mmol/L Anion Gap mmol/L BUN (7-17) mg/dL Creatinine (0.52-1.04) mg/dL Est GFR (CKD-EPI) (>=60) Est GFR (CKD-EPI)AfAm (>60 ml/min/1.73 sqM) Est GFR (CKD-EPI)NonAf (>60 ml/min/1.73 sqM) BUN/Creatinine Ratio (12.00-20.00) Ratio Glucose (74-99) mg/dL POC Glucose (mg/dL) 79 116 H (70-110) mg/dL POC Glu Laundry Agent Elizabeth Kelly [address] Glu mg/dL mg/dL Hemoglobin A1c (<=6.0) % Plasma Lactic Acid Fabio (0.7-2.0) mmol/L Calcium (8.4-10.2) mg/dL Magnesium (1.6-2.3) mg/dL Total Bilirubin (0.2-1.3) mg/dL AST (14-36) U/L ALT (4-34) U/L Alkaline Phosphatase (38-126) U/L Troponin I (0.000-0.034) ng/mL Total Protein (6.3-8.2) g/dL Albumin (3.5-5.0) g/dL Globulin g/dL Albumin/Globulin Ratio Vitamin B12 (200.0-944.0) pg/mL RBC Folate (280 - 791) ng/mL Procalcitonin (0.02-0.09) ng/mL TSH (0.465-4.680) mIU/L Urine Color Urine Appearance (Clear) Urine pH (5.0-8.0) Ur Specific [place] (1.001-1.035) Urine Protein (Negative) Urine Glucose (UA) (Negative) Urine Ketones (Negative) Urine Blood (Negative) Urine Nitrite (Negative) Urine Bilirubin (Negative) Urine Urobilinogen (<2.0) mg/dL Ur Leukocyte Esterase (Negative) Urine RBC (0-5) /hpf Urine WBC (0-5) /hpf Ur Squamous Epith Cells (0-4) /hpf Urine Bacteria (None) /hpf Influenza Type A (PCR) Not Detected (Not Detectd) Influenza Type B (PCR) Not Detected (Not Detectd) RSV (PCR) Not Detected (Not Detectd) SARS-CoV-2 (PCR) Detected A (Not Detectd) 11/11/23 11/12/23 11/12/23 Range/Units 20:10 05:54 06:28 WBC 5.2 (3.8-10.6) k/uL RBC 3.92 (3.80-5.40) m/uL Hgb 12.5 (11.4-16.0) gm/dL Hct 37.0 (34.0-46.0) % MCV 94.3 (80.0-100.0) fL MCH 31.9 (25.0-35.0) pg MCHC 33.8 (31.0-37.0) g/dL RDW 12.2 (11.5-15.5) % Plt Count 193 (150-450) k/uL MPV 9.3 Neutrophils % 68 % Lymphocytes % 21 % Monocytes % 9 % Eosinophils % 0 % Basophils % 0 % Neutrophils # 3.6 (1.3-7.7) k/uL Lymphocytes # 1.1 (1.0-4.8) k/uL Monocytes # 0.5 (0-1.0) k/uL Eosinophils # 0.0 (0-0.7) k/uL Basophils # 0.0 (0-0.2) k/uL Sodium (137-145) mmol/L Potassium (3.5-5.1) mmol/L Chloride (98-107) mmol/L Carbon Dioxide (22-30) mmol/L Anion Gap mmol/L BUN (7-17) mg/dL Creatinine (0.52-1.04) mg/dL Est GFR (CKD-EPI) (>=60) Est GFR (CKD-EPI)AfAm (>60 ml/min/1.73 sqM) Est GFR (CKD-EPI)NonAf (>60 ml/min/1.73 sqM) BUN/Creatinine Ratio (12.00-20.00) Ratio Glucose (74-99) mg/dL POC Glucose (mg/dL) 149 H 148 H (70-110) mg/dL POC Glu Laundry Agent Marika Munoz [address] Glu mg/dL mg/dL Hemoglobin A1c (<=6.0) % Plasma Lactic Acid Fabio (0.7-2.0) mmol/L Calcium (8.4-10.2) mg/dL Magnesium (1.6-2.3) mg/dL Total Bilirubin (0.2-1.3) mg/dL AST (14-36) U/L ALT (4-34) U/L Alkaline Phosphatase (38-126) U/L Troponin I (0.000-0.034) ng/mL Total Protein (6.3-8.2) g/dL Albumin (3.5-5.0) g/dL Globulin g/dL Albumin/Globulin Ratio Vitamin B12 (200.0-944.0) pg/mL RBC Folate (280 - 791) ng/mL Procalcitonin (0.02-0.09) ng/mL TSH (0.465-4.680) mIU/L Urine Color Urine Appearance (Clear) Urine pH (5.0-8.0) Ur Specific [place] (1.001-1.035) Urine Protein (Negative) Urine Glucose (UA) (Negative) Urine Ketones (Negative) Urine Blood (Negative) Urine Nitrite (Negative) Urine Bilirubin (Negative) Urine Urobilinogen (<2.0) mg/dL Ur Leukocyte Esterase (Negative) Urine RBC (0-5) /hpf Urine WBC (0-5) /hpf Ur Squamous Epith Cells (0-4) /hpf Urine Bacteria (None) /hpf Influenza Type A (PCR) (Not Detectd) Influenza Type B (PCR) (Not Detectd) RSV (PCR) (Not Detectd) SARS-CoV-2 (PCR) (Not Detectd) 11/12/23 11/12/23 11/12/23 Range/Units 06:28 11:01 16:43 WBC (3.8-10.6) k/uL RBC (3.80-5.40) m/uL Hgb (11.4-16.0) gm/dL Hct (34.0-46.0) % MCV (80.0-100.0) fL MCH (25.0-35.0) pg MCHC (31.0-37.0) g/dL RDW (11.5-15.5) % Plt Count (150-450) k/uL MPV Neutrophils % % Lymphocytes % % Monocytes % % Eosinophils % % Basophils % % Neutrophils # (1.3-7.7) k/uL Lymphocytes # (1.0-4.8) k/uL Monocytes # (0-1.0) k/uL Eosinophils # (0-0.7) k/uL Basophils # (0-0.2) k/uL Sodium 126 L (137-145) mmol/L Potassium 3.7 (3.5-5.1) mmol/L Chloride 93 L (98-107) mmol/L Carbon Dioxide 26 (22-30) mmol/L Anion Gap 7 mmol/L BUN 12 (7-17) mg/dL Creatinine 0.88 (0.52-1.04) mg/dL Est GFR (CKD-EPI) (>=60) Est GFR (CKD-EPI)AfAm 68 (>60 ml/min/1.73 sqM) Est GFR (CKD-EPI)NonAf 59 (>60 ml/min/1.73 sqM) BUN/Creatinine Ratio (12.00-20.00) Ratio Glucose 152 H (74-99) mg/dL POC Glucose (mg/dL) 163 H 210 H (70-110) mg/dL POC Glu Laundry Agent ID Lele Lovell [address] Glu mg/dL mg/dL Hemoglobin A1c (<=6.0) % Plasma Lactic Acid Fabio (0.7-2.0) mmol/L Calcium 8.7 (8.4-10.2) mg/dL Magnesium 1.4 L (1.6-2.3) mg/dL Total Bilirubin (0.2-1.3) mg/dL AST (14-36) U/L ALT (4-34) U/L Alkaline Phosphatase (38-126) U/L Troponin I (0.000-0.034) ng/mL Total Protein (6.3-8.2) g/dL Albumin (3.5-5.0) g/dL Globulin g/dL Albumin/Globulin Ratio Vitamin B12 (200.0-944.0) pg/mL RBC Folate (280 - 791) ng/mL Procalcitonin (0.02-0.09) ng/mL TSH (0.465-4.680) mIU/L Urine Color Urine Appearance (Clear) Urine pH (5.0-8.0) Ur Specific [place] (1.001-1.035) Urine Protein (Negative) Urine Glucose (UA) (Negative) Urine Ketones (Negative) Urine Blood (Negative) Urine Nitrite (Negative) Urine Bilirubin (Negative) Urine Urobilinogen (<2.0) mg/dL Ur Leukocyte Esterase (Negative) Urine RBC (0-5) /hpf Urine WBC (0-5) /hpf Ur Squamous Epith Cells (0-4) /hpf Urine Bacteria (None) /hpf Influenza Type A (PCR) (Not Detectd) Influenza Type B (PCR) (Not Detectd) RSV (PCR) (Not Detectd) SARS-CoV-2 (PCR) (Not Detectd) 11/12/23 11/13/23 11/13/23 Range/Units 19:47 08:19 11:13 WBC (3.8-10.6) k/uL RBC (3.80-5.40) m/uL Hgb (11.4-16.0) gm/dL Hct (34.0-46.0) % MCV (80.0-100.0) fL MCH (25.0-35.0) pg MCHC (31.0-37.0) g/dL RDW (11.5-15.5) % Plt Count (150-450) k/uL MPV Neutrophils % % Lymphocytes % % Monocytes % % Eosinophils % % Basophils % % Neutrophils # (1.3-7.7) k/uL Lymphocytes # (1.0-4.8) k/uL Monocytes # (0-1.0) k/uL Eosinophils # (0-0.7) k/uL Basophils # (0-0.2) k/uL Sodium (137-145) mmol/L Potassium (3.5-5.1) mmol/L Chloride (98-107) mmol/L Carbon Dioxide (22-30) mmol/L Anion Gap mmol/L BUN (7-17) mg/dL Creatinine (0.52-1.04) mg/dL Est GFR (CKD-EPI) (>=60) Est GFR (CKD-EPI)AfAm (>60 ml/min/1.73 sqM) Est GFR (CKD-EPI)NonAf (>60 ml/min/1.73 sqM) BUN/Creatinine Ratio (12.00-20.00) Ratio Glucose (74-99) mg/dL POC Glucose (mg/dL) 130 H 139 H 130 H (70-110) mg/dL POC Glu Laundry Agent ID Susi Suellenswathi Wong, Lele Valles [address] Glu mg/dL mg/dL Hemoglobin A1c (<=6.0) % Plasma Lactic Acid Fabio (0.7-2.0) mmol/L Calcium (8.4-10.2) mg/dL Magnesium (1.6-2.3) mg/dL Total Bilirubin (0.2-1.3) mg/dL AST (14-36) U/L ALT (4-34) U/L Alkaline Phosphatase (38-126) U/L Troponin I (0.000-0.034) ng/mL Total Protein (6.3-8.2) g/dL Albumin (3.5-5.0) g/dL Globulin g/dL Albumin/Globulin Ratio Vitamin B12 (200.0-944.0) pg/mL RBC Folate (280 - 791) ng/mL Procalcitonin (0.02-0.09) ng/mL TSH (0.465-4.680) mIU/L Urine Color Urine Appearance (Clear) Urine pH (5.0-8.0) Ur Specific [place] (1.001-1.035) Urine Protein (Negative) Urine Glucose (UA) (Negative) Urine Ketones (Negative) Urine Blood (Negative) Urine Nitrite (Negative) Urine Bilirubin (Negative) Urine Urobilinogen (<2.0) mg/dL Ur Leukocyte Esterase (Negative) Urine RBC (0-5) /hpf Urine WBC (0-5) /hpf Ur Squamous Epith Cells (0-4) /hpf Urine Bacteria (None) /hpf Influenza Type A (PCR) (Not Detectd) Influenza Type B (PCR) (Not Detectd) RSV (PCR) (Not Detectd) SARS-CoV-2 (PCR) (Not Detectd) 11/13/23 11/13/23 11/13/23 Range/Units 12:26 12:26 12:26 WBC 6.0 (3.8-10.6) k/uL RBC 3.91 (3.80-5.40) m/uL Hgb 12.4 (11.4-16.0) gm/dL Hct 36.6 (34.0-46.0) % MCV 93.5 (80.0-100.0) fL MCH 31.6 (25.0-35.0) pg MCHC 33.8 (31.0-37.0) g/dL RDW 12.2 (11.5-15.5) % Plt Count 168 (150-450) k/uL MPV 9.2 Neutrophils % 66 % Lymphocytes % 23 % Monocytes % 8 % Eosinophils % 1 % Basophils % 0 % Neutrophils # 3.9 (1.3-7.7) k/uL Lymphocytes # 1.4 (1.0-4.8) k/uL Monocytes # 0.5 (0-1.0) k/uL Eosinophils # 0.0 (0-0.7) k/uL Basophils # 0.0 (0-0.2) k/uL Sodium 128 L (137-145) mmol/L Potassium 3.7 (3.5-5.1) mmol/L Chloride 95 L (98-107) mmol/L Carbon Dioxide 23 (22-30) mmol/L Anion Gap 10 mmol/L BUN 15 (7-17) mg/dL Creatinine 0.87 (0.52-1.04) mg/dL Est GFR (CKD-EPI) (>=60) Est GFR (CKD-EPI)AfAm 68 (>60 ml/min/1.73 sqM) Est GFR (CKD-EPI)NonAf 59 (>60 ml/min/1.73 sqM) BUN/Creatinine Ratio (12.00-20.00) Ratio Glucose 128 H (74-99) mg/dL POC Glucose (mg/dL) (70-110) mg/dL POC Glu Laundry Agent ID [address] Glu mg/dL 108 mg/dL Hemoglobin A1c 5.4 (<=6.0) % Plasma Lactic Acid Fabio (0.7-2.0) mmol/L Calcium 9.0 (8.4-10.2) mg/dL Magnesium 1.6 (1.6-2.3) mg/dL Total Bilirubin (0.2-1.3) mg/dL AST (14-36) U/L ALT (4-34) U/L Alkaline Phosphatase (38-126) U/L Troponin I (0.000-0.034) ng/mL Total Protein (6.3-8.2) g/dL Albumin (3.5-5.0) g/dL Globulin g/dL Albumin/Globulin Ratio Vitamin B12 371.0 (200.0-944.0) pg/mL RBC Folate (280 - 791) ng/mL Procalcitonin (0.02-0.09) ng/mL TSH 2.970 (0.465-4.680) mIU/L Urine Color Urine Appearance (Clear) Urine pH (5.0-8.0) Ur Specific [place] (1.001-1.035) Urine Protein (Negative) Urine Glucose (UA) (Negative) Urine Ketones (Negative) Urine Blood (Negative) Urine Nitrite (Negative) Urine Bilirubin (Negative) Urine Urobilinogen (<2.0) mg/dL Ur Leukocyte Esterase (Negative) Urine RBC (0-5) /hpf Urine WBC (0-5) /hpf Ur Squamous Epith Cells (0-4) /hpf Urine Bacteria (None) /hpf Influenza Type A (PCR) (Not Detectd) Influenza Type B (PCR) (Not Detectd) RSV (PCR) (Not Detectd) SARS-CoV-2 (PCR) (Not Detectd) 11/13/23 11/13/23 11/13/23 Range/Units 12:26 12:26 16:51 WBC (3.8-10.6) k/uL RBC (3.80-5.40) m/uL Hgb (11.4-16.0) gm/dL Hct (34.0-46.0) % MCV (80.0-100.0) fL MCH (25.0-35.0) pg MCHC (31.0-37.0) g/dL RDW (11.5-15.5) % Plt Count (150-450) k/uL MPV Neutrophils % % Lymphocytes % % Monocytes % % Eosinophils % % Basophils % % Neutrophils # (1.3-7.7) k/uL Lymphocytes # (1.0-4.8) k/uL Monocytes # (0-1.0) k/uL Eosinophils # (0-0.7) k/uL Basophils # (0-0.2) k/uL Sodium (137-145) mmol/L Potassium (3.5-5.1) mmol/L Chloride (98-107) mmol/L Carbon Dioxide (22-30) mmol/L Anion Gap mmol/L BUN (7-17) mg/dL Creatinine (0.52-1.04) mg/dL Est GFR (CKD-EPI) (>=60) Est GFR (CKD-EPI)AfAm (>60 ml/min/1.73 sqM) Est GFR (CKD-EPI)NonAf (>60 ml/min/1.73 sqM) BUN/Creatinine Ratio (12.00-20.00) Ratio Glucose (74-99) mg/dL POC Glucose (mg/dL) 115 H (70-110) mg/dL POC Glu Laundry Agent ID [place] Lovellen [address] Glu mg/dL mg/dL Hemoglobin A1c (<=6.0) % Plasma Lactic Acid Fabio (0.7-2.0) mmol/L Calcium (8.4-10.2) mg/dL Magnesium (1.6-2.3) mg/dL Total Bilirubin (0.2-1.3) mg/dL AST (14-36) U/L ALT (4-34) U/L Alkaline Phosphatase (38-126) U/L Troponin I (0.000-0.034) ng/mL Total Protein (6.3-8.2) g/dL Albumin (3.5-5.0) g/dL Globulin g/dL Albumin/Globulin Ratio Vitamin B12 (200.0-944.0) pg/mL RBC Folate 607 (280 - 791) ng/mL Procalcitonin 0.11 H (0.02-0.09) ng/mL TSH (0.465-4.680) mIU/L Urine Color Urine Appearance (Clear) Urine pH (5.0-8.0) Ur Specific [place] (1.001-1.035) Urine Protein (Negative) Urine Glucose (UA) (Negative) Urine Ketones (Negative) Urine Blood (Negative) Urine Nitrite (Negative) Urine Bilirubin (Negative) Urine Urobilinogen (<2.0) mg/dL Ur Leukocyte Esterase (Negative) Urine RBC (0-5) /hpf Urine WBC (0-5) /hpf Ur Squamous Epith Cells (0-4) /hpf Urine Bacteria (None) /hpf Influenza Type A (PCR) (Not Detectd) Influenza Type B (PCR) (Not Detectd) RSV (PCR) (Not Detectd) SARS-CoV-2 (PCR) (Not Detectd) 11/13/23 11/14/23 11/14/23 Range/Units 20:54 03:30 06:01 WBC (3.8-10.6) k/uL RBC (3.80-5.40) m/uL Hgb (11.4-16.0) gm/dL Hct (34.0-46.0) % MCV (80.0-100.0) fL MCH (25.0-35.0) pg MCHC (31.0-37.0) g/dL RDW (11.5-15.5) % Plt Count (150-450) k/uL MPV Neutrophils % % Lymphocytes % % Monocytes % % Eosinophils % % Basophils % % Neutrophils # (1.3-7.7) k/uL Lymphocytes # (1.0-4.8) k/uL Monocytes # (0-1.0) k/uL Eosinophils # (0-0.7) k/uL Basophils # (0-0.2) k/uL Sodium 131 L (137-145) mmol/L Potassium 3.3 L (3.5-5.1) mmol/L Chloride 96 (98-107) mmol/L Carbon Dioxide 22.6 (22-30) mmol/L Anion Gap 12.40 H mmol/L BUN 12.5 (7-17) mg/dL Creatinine 0.8 (0.52-1.04) mg/dL Est GFR (CKD-EPI) 70 (>=60) Est GFR (CKD-EPI)AfAm (>60 ml/min/1.73 sqM) Est GFR (CKD-EPI)NonAf (>60 ml/min/1.73 sqM) BUN/Creatinine Ratio 15.62 (12.00-20.00) Ratio Glucose 111 H (74-99) mg/dL POC Glucose (mg/dL) 130 H 103 (70-110) mg/dL POC Glu Laundry Agent Beth Elizondo Alyssa [address] Glu mg/dL mg/dL Hemoglobin A1c (<=6.0) % Plasma Lactic Acid Fabio (0.7-2.0) mmol/L Calcium 8.9 (8.4-10.2) mg/dL Magnesium 2.0 (1.6-2.3) mg/dL Total Bilirubin (0.2-1.3) mg/dL AST (14-36) U/L ALT (4-34) U/L Alkaline Phosphatase (38-126) U/L Troponin I (0.000-0.034) ng/mL Total Protein (6.3-8.2) g/dL Albumin (3.5-5.0) g/dL Globulin g/dL Albumin/Globulin Ratio Vitamin B12 (200.0-944.0) pg/mL RBC Folate (280 - 791) ng/mL Procalcitonin (0.02-0.09) ng/mL TSH (0.465-4.680) mIU/L Urine Color Urine Appearance (Clear) Urine pH (5.0-8.0) Ur Specific [place] (1.001-1.035) Urine Protein (Negative) Urine Glucose (UA) (Negative) Urine Ketones (Negative) Urine Blood (Negative) Urine Nitrite (Negative) Urine Bilirubin (Negative) Urine Urobilinogen (<2.0) mg/dL Ur Leukocyte Esterase (Negative) Urine RBC (0-5) /hpf Urine WBC (0-5) /hpf Ur Squamous Epith Cells (0-4) /hpf Urine Bacteria (None) /hpf Influenza Type A (PCR) (Not Detectd) Influenza Type B (PCR) (Not Detectd) RSV (PCR) (Not Detectd) SARS-CoV-2 (PCR) (Not Detectd) 11/14/23 11/14/23 11/14/23 Range/Units 11:16 16:17 19:51 WBC (3.8-10.6) k/uL RBC (3.80-5.40) m/uL Hgb (11.4-16.0) gm/dL Hct (34.0-46.0) % MCV (80.0-100.0) fL MCH (25.0-35.0) pg MCHC (31.0-37.0) g/dL RDW (11.5-15.5) % Plt Count (150-450) k/uL MPV Neutrophils % % Lymphocytes % % Monocytes % % Eosinophils % % Basophils % % Neutrophils # (1.3-7.7) k/uL Lymphocytes # (1.0-4.8) k/uL Monocytes # (0-1.0) k/uL Eosinophils # (0-0.7) k/uL Basophils # (0-0.2) k/uL Sodium (137-145) mmol/L Potassium (3.5-5.1) mmol/L Chloride (98-107) mmol/L Carbon Dioxide (22-30) mmol/L Anion Gap mmol/L BUN (7-17) mg/dL Creatinine (0.52-1.04) mg/dL Est GFR (CKD-EPI) (>=60) Est GFR (CKD-EPI)AfAm (>60 ml/min/1.73 sqM) Est GFR (CKD-EPI)NonAf (>60 ml/min/1.73 sqM) BUN/Creatinine Ratio (12.00-20.00) Ratio Glucose (74-99) mg/dL POC Glucose (mg/dL) 189 H 138 H 132 H (70-110) mg/dL POC Glu Laundry Agent ID Michelet, Dontrell Tafoya, Lalitha Arellano [address] Glu mg/dL mg/dL Hemoglobin A1c (<=6.0) % Plasma Lactic Acid Fabio (0.7-2.0) mmol/L Calcium (8.4-10.2) mg/dL Magnesium (1.6-2.3) mg/dL Total Bilirubin (0.2-1.3) mg/dL AST (14-36) U/L ALT (4-34) U/L Alkaline Phosphatase (38-126) U/L Troponin I (0.000-0.034) ng/mL Total Protein (6.3-8.2) g/dL Albumin (3.5-5.0) g/dL Globulin g/dL Albumin/Globulin Ratio Vitamin B12 (200.0-944.0) pg/mL RBC Folate (280 - 791) ng/mL Procalcitonin (0.02-0.09) ng/mL TSH (0.465-4.680) mIU/L Urine Color Urine Appearance (Clear) Urine pH (5.0-8.0) Ur Specific [place] (1.001-1.035) Urine Protein (Negative) Urine Glucose (UA) (Negative) Urine Ketones (Negative) Urine Blood (Negative) Urine Nitrite (Negative) Urine Bilirubin (Negative) Urine Urobilinogen (<2.0) mg/dL Ur Leukocyte Esterase (Negative) Urine RBC (0-5) /hpf Urine WBC (0-5) /hpf Ur Squamous Epith Cells (0-4) /hpf Urine Bacteria (None) /hpf Influenza Type A (PCR) (Not Detectd) Influenza Type B (PCR) (Not Detectd) RSV (PCR) (Not Detectd) SARS-CoV-2 (PCR) (Not Detectd) 11/15/23 Range/Units 06:11 WBC (3.8-10.6) k/uL RBC (3.80-5.40) m/uL Hgb (11.4-16.0) gm/dL Hct (34.0-46.0) % MCV (80.0-100.0) fL MCH (25.0-35.0) pg MCHC (31.0-37.0) g/dL RDW (11.5-15.5) % Plt Count (150-450) k/uL MPV Neutrophils % % Lymphocytes % % Monocytes % % Eosinophils % % Basophils % % Neutrophils # (1.3-7.7) k/uL Lymphocytes # (1.0-4.8) k/uL Monocytes # (0-1.0) k/uL Eosinophils # (0-0.7) k/uL Basophils # (0-0.2) k/uL Sodium (137-145) mmol/L Potassium (3.5-5.1) mmol/L Chloride (98-107) mmol/L Carbon Dioxide (22-30) mmol/L Anion Gap mmol/L BUN (7-17) mg/dL Creatinine (0.52-1.04) mg/dL Est GFR (CKD-EPI) (>=60) Est GFR (CKD-EPI)AfAm (>60 ml/min/1.73 sqM) Est GFR (CKD-EPI)NonAf (>60 ml/min/1.73 sqM) BUN/Creatinine Ratio (12.00-20.00) Ratio Glucose (74-99) mg/dL POC Glucose (mg/dL) 124 H (70-110) mg/dL POC Glu Laundry Agent ID Lalitha Rodriguez [address] Glu mg/dL mg/dL Hemoglobin A1c (<=6.0) % Plasma Lactic Acid Fabio (0.7-2.0) mmol/L Calcium (8.4-10.2) mg/dL Magnesium (1.6-2.3) mg/dL Total Bilirubin (0.2-1.3) mg/dL AST (14-36) U/L ALT (4-34) U/L Alkaline Phosphatase (38-126) U/L Troponin I (0.000-0.034) ng/mL Total Protein (6.3-8.2) g/dL Albumin (3.5-5.0) g/dL Globulin g/dL Albumin/Globulin Ratio Vitamin B12 (200.0-944.0) pg/mL RBC Folate (280 - 791) ng/mL Procalcitonin (0.02-0.09) ng/mL TSH (0.465-4.680) mIU/L Urine Color Urine Appearance (Clear) Urine pH (5.0-8.0) Ur Specific [place] (1.001-1.035) Urine Protein (Negative) Urine Glucose (UA) (Negative) Urine Ketones (Negative) Urine Blood (Negative) Urine Nitrite (Negative) Urine Bilirubin (Negative) Urine Urobilinogen (<2.0) mg/dL Ur Leukocyte Esterase (Negative) Urine RBC (0-5) /hpf Urine WBC (0-5) /hpf Ur Squamous Epith Cells (0-4) /hpf Urine Bacteria (None) /hpf Influenza Type A (PCR) (Not Detectd) Influenza Type B (PCR) (Not Detectd) RSV (PCR) (Not Detectd) SARS-CoV-2 (PCR) (Not Detectd) - EKG Data -: EKG Interpreted by Me EKG shows normal: sinus rhythm (With occasional ectopic beat), axis (Normal), intervals (Normal), QRS complexes (Voltage QRS complex) Rate: normal (Rate 64 bpm) Interpretation: other (Suspected old infarct based on anterior Q waves) Disposition Clinical Impression: Hypomagnesemia, Hypoglycemia, Hyponatremia Disposition: ADMITTED IP TO THIS [facility] Condition: Fair Is patient prescribed a controlled substance at d/c from ED?: No
[2023-11-10 21:44] LABS: Glucose,Whole Blood 47 mg/dL (70-110)
[2023-11-10 21:59] LABS: Basophils % (A) 0 %; Eosinophils % (A) 0 %; HCT 34.1 % (34.0-46.0); Lymphocytes # (A) 0.9 k/uL (1.0-4.8); Lymphocytes % (A) 15 %; MCH 32.6 pg (25.0-35.0); MCHC 35.3 g/dL (31.0-37.0); MCV 92.5 fL (80.0-100.0); Mean Platelet Volume 8.8; Monocytes # (A) 0.6 k/uL (0-1.0); Monocytes % (A) 9 %; Neutrophils # (A) 4.5 k/uL (1.3-7.7); Neutrophils % (A) 74 %; Platelet Count 191 k/uL (150-450); RBC 3.69 m/uL (3.80-5.40); RDW 12.1 % (11.5-15.5); WBC 6.1 k/uL (3.8-10.6)
[2023-11-10 22:26] LABS: ALT 20 U/L (4-34); AST 32 U/L (14-36); African American GFR (CKD) 66 (>60 ml/min/1.73 sqM); Albumin 3.2 g/dL (3.5-5.0); Alkaline Phosphatase 92 U/L (38-126); Anion Gap 12 mmol/L; Blood Urea Nitrogen 16 mg/dL (7-17); Calcium 8.4 mg/dL (8.4-10.2); Carbon Dioxide 23 mmol/L (22-30); Chloride 91 mmol/L (98-107); Non-African American GFR(CKD) 57 (>60 ml/min/1.73 sqM); Potassium 3.1 mmol/L (3.5-5.1); Sodium 126 mmol/L (137-145); Total Bilirubin 0.4 mg/dL (0.2-1.3); Total Protein 5.7 g/dL (6.3-8.2)
[2023-11-10 22:42] LABS: Glucose 39 mg/dL (74-99)
[2023-11-10 22:43] LABS: Magnesium 0.9 mg/dL (1.6-2.3)
--- NOTE | 2023-11-10 22:48 | CT ---
EXAM: CT Head Without Intravenous Contrast CLINICAL HISTORY: ITS.REASON CT Reason: fall injury TECHNIQUE: Axial computed tomography images of the head/brain without intravenous contrast. CTDI is 49.1 mGy and DLP is 1085.4 mGy-cm. This CT exam was performed using one or more of the following dose reduction techniques: automated exposure control, adjustment of the mA and/or kV according to patient size, and/or use of iterative reconstruction technique. COMPARISON: Head CT 11/10/2021 FINDINGS: Brain: No hemorrhage, extra-axial fluid collection, mass effect, or edema. Global parenchymal atrophy. Ventricles: Unremarkable. Bones/joints: Unremarkable. No fracture. Soft tissues: Unremarkable. Sinuses: No acute sinusitis. Mastoid air cells: Unremarkable as visualized. IMPRESSION: 1. No acute intracranial abnormality.
[2023-11-10 23:05] LABS: Glucose,Whole Blood 69 mg/dL (70-110)
[2023-11-10 23:30] LABS: Glucose,Whole Blood 69 mg/dL (70-110)
[2023-11-10] MEDS ORDERED: SODIUM CHLORIDE 0.9% 1,000 ML IV SCH (23:45)
[2023-11-10] MEDS ORDERED: MAG HYDROX/AL HYDROX/SIMETH 30 ML CUP PO PRN (23:52)
[2023-11-10] MEDS ORDERED: ONDANSETRON 4 MG/2 ML VIAL IVP PRN (23:52)
[2023-11-10] MEDS ORDERED: ACETAMINOPHEN TAB 325 MG TAB PO PRN (23:52)
[2023-11-10] MEDS ORDERED: NALOXONE 0.4 MG/ML 1 ML VIAL IV PRN (23:52)
[2023-11-11] MEDS ORDERED: MAGNESIUM SULFATE-D5W PMX 1 GM in DEXTROSE/WATER 1 100ML.BAG IVPB ONE (00:11)
[2023-11-11 00:13] LABS: Glucose,Whole Blood 77 mg/dL (70-110)
[2023-11-11] MEDS: MAGNESIUM OXIDE 400 MG TAB PO SCH ×3 (00:50→20:54)
[2023-11-11] MEDS ORDERED: POTASSIUM CHLORIDE ER 20 MEQ TAB.ER PO STA (01:49)
[2023-11-11] MEDS ORDERED: BACITRACIN OINT 1 EACH PACKET TOPICAL ONE (02:14)
[2023-11-11 03:43] LABS: Glucose,Whole Blood 48 mg/dL (70-110)
[2023-11-11] MEDS: DEXTROSE 5%-0.9% NACL 1,000 ML IV SCH ×2 (04:04→17:00)
[2023-11-11 05:09] LABS: Glucose,Whole Blood 81 mg/dL (70-110)
[2023-11-11 06:05] LABS: Glucose,Whole Blood 79 mg/dL (70-110)
[2023-11-11 07:05] LABS: Basophils % (A) 0 %; Eosinophils % (A) 0 %; HCT 34.1 % (34.0-46.0); HGB 11.6 gm/dL (11.4-16.0); Lymphocytes # (A) 1.3 k/uL (1.0-4.8); Lymphocytes % (A) 20 %; MCH 31.4 pg (25.0-35.0); MCV 92.3 fL (80.0-100.0); Mean Platelet Volume 9.3; Monocytes # (A) 0.6 k/uL (0-1.0); Monocytes % (A) 10 %; Neutrophils # (A) 4.7 k/uL (1.3-7.7); Neutrophils % (A) 69 %; Platelet Count 178 k/uL (150-450); RBC 3.69 m/uL (3.80-5.40); RDW 12.2 % (11.5-15.5); WBC 6.7 k/uL (3.8-10.6)
[2023-11-11 07:18] LABS: ALT 18 U/L (4-34); AST 31 U/L (14-36); African American GFR (CKD) 73 (>60 ml/min/1.73 sqM); Albumin 2.9 g/dL (3.5-5.0); Albumin/Globulin Ratio 1.1; Alkaline Phosphatase 91 U/L (38-126); Anion Gap 10 mmol/L; Blood Urea Nitrogen 14 mg/dL (7-17); Calcium 8.2 mg/dL (8.4-10.2); Carbon Dioxide 24 mmol/L (22-30); Chloride 91 mmol/L (98-107); Globulin 2.6 g/dL; Glucose 60 mg/dL (74-99); Non-African American GFR(CKD) 63 (>60 ml/min/1.73 sqM); Potassium 3.7 mmol/L (3.5-5.1); Sodium 125 mmol/L (137-145); Total Bilirubin 0.4 mg/dL (0.2-1.3); Total Protein 5.5 g/dL (6.3-8.2)
[2023-11-11 07:22] LABS: Glucose,Whole Blood 61 mg/dL (70-110)
[2023-11-11] MEDS ORDERED: FAMOTIDINE 20 MG TAB PO SCH (09:00)
[2023-11-11 09:18] LABS: Glucose,Whole Blood 65 mg/dL (70-110)
[2023-11-11] MEDS: FAMOTIDINE 20 MG TAB PO SCH (10:21)
[2023-11-11 10:55] LABS: Glucose,Whole Blood 95 mg/dL (70-110)
[2023-11-11 12:12] LABS: Glucose,Whole Blood 79 mg/dL (70-110)
[2023-11-11 12:24] LABS: Appearance,Urine Cloudy (Clear); Bacteria,Urine Few /hpf; Bilirubin,Urine Negative (Negative); Blood,Urine Trace (Negative); Color,Urine Colorless; Glucose,Urine (UA) Negative (Negative); Ketones,Urine Negative (Negative); Leukocyte Esterase,Urine Large (Negative); Nitrite,Urine Negative (Negative); PH, Urine 7.5 (5.0-8.0); Protein,Urine Trace (Negative); RBC,Urine 2 /hpf (0-5); Specific Gravity,Urine 1.009 (1.001-1.035); Squamous Epithelial Cell,Urine <1 /hpf (0-4); Urobilinogen,Urine <2.0 mg/dL (<2.0); WBC,Urine 23 /hpf (0-5)
[2023-11-11 16:48] LABS: Glucose,Whole Blood 116 mg/dL (70-110)
[2023-11-11 20:33] LABS: Glucose,Whole Blood 149 mg/dL (70-110)
[2023-11-12] MEDS ORDERED: IBUPROFEN 800 MG TAB PO PRN (04:36)
[2023-11-12] MEDS ORDERED: DEXTROSE 50% SYRINGE 50 ML IVP PRN ×2 (04:37)
[2023-11-12] MEDS: DEXTROSE 5%-0.9% NACL 1,000 ML IV SCH ×2 (04:39→23:05)
--- NOTE | 2023-11-12 04:57 | P.HPIM ---
History of Present Illness H&P Date: 11/11/23 This is a 88-year-old female who presented to the emergency department via EMS after having increased falls and did strike her face. Patient reports she has been having low blood sugars and reports more frequent weakness and falls. Patient is on Plavix and is noted to have ecchymosis over both eyes and cheeks along with nasal bone as she reports she struck her face when she fell on the floor. Patient denies any loss of consciousness or syncopal episode. Patient follows with Dr. Piedad Tompkins in the outpatient setting with past medical history of diabetes mellitus, hyperlipidemia, hypertension, osteoarthritis. Patient denies any illicit drug use or alcohol and is a former smoker for many years ago. Patient reports she takes oral medications to control her diabetes. Patient reports she lives alone. Patient is extremely hard of hearing. Patient denies any recent sick contacts although patient appears quite congested on exam we'll test for covert, influenza, RSV. Patient did undergo CT of the brain due to the fall and striking her face which was negative for any acute process. Labs reviewed revealing sodium is 126, potassium 3.1, BUN 16 with a creatinine 0.9, blood sugar was 39, magnesium critically low at 0.9 and troponin was negative. Patient was started on D5 normal saline in the ER and admitted under observation for hyponatremia and hypoglycemia with falls. Review Of Systems: Constitutional: No fever, no chills, no night sweats. No weight change. Reports some increased weakness, no fatigue or lethargy. No daytime sleepiness. EENT: No headache. No blurred vision or double vision, no loss of vision. No loss of Hearing, no ringing in the ears, no dizziness. No nasal drainage or congestion. No epistaxis. No sore throat. Lungs: No shortness of breath, cough, no sputum production. No wheezing. Cardiovascular: No chest pain, no lower extremity edema. No palpitations. No paroxysmal nocturnal dyspnea. No orthopnea. No lightheadedness or dizziness. No syncopal episodes. Abdominal: No abdominal pain. No nausea, vomiting. No diarrhea. No constipation. No bloody or tarry stools.. No loss of appetite. Genitourinary: No dysuria, increased frequency, urgency. No urinary retention. Musculoskeletal: No myalgias. No muscle weakness, no gait dysfunction, reports recurrent frequent falls. No back pain. No neck pain. Integumentary: No wounds, no lesions. No rash or pruritus. Reports easily bruising. No change in hair or nails. Neurologic: No aphasia. No facial droop. No change in mentation. No head injury. No headache. No paralysis. No paresthesia. Psychiatric: No depression. No anxiety. No mood swings. Endocrine: Reports abnormal low blood sugars. No weight change. No excessive sweating or thirst. No cold intolerance. PHYSICAL EXAMINATION: GENERAL: The patient is alert and oriented x3, extremely hard of hearing, thin built elderly appearing female Well developed HEENT: Pupils are round and equally reacting to light. EOMI. no scleral icterus. No conjunctival pallor. Normocephalic, atraumatic. No pharyngeal erythema. No thyromegaly. CARDIOVASCULAR: S1 and S2 muffled PULMONARY: diminished breath sounds bilaterally with no wheezing or rhonchi noted. ABDOMEN: soft. Nontender on exam. Thin. non-distended, normoactive bowel sounds. No palpable organomegaly. MUSCULOSKELETAL: No joint swelling or deformity. EXTREMITIES: No cyanosis, clubbing, or pedal edema. NEUROLOGICAL: Gross neurological examination did not reveal any focal deficits. Diffuse weakness SKIN: No rashes. Ecchymosis noted around bilateral eye orbits as well as cheekbones and nasal bone Assessment: Electrolyte abnormalities including hyponatremia and severe hypomagnesemia Hypoglycemia with history of diabetes mellitus, type II, uncontrolled [id number] Recurrent falls with generalized weakness Acute COVID-19 infection History of hyperlipidemia History of hypertension Osteoarthritis GI prophylaxis DVT prophylaxis Full code Plan: Recommend to continue with current medications and management. Patient was admitted under observation for hyponatremia and recurrent hypoglycemia with falls. Patient will require more than two night hospitalization secondary to severe electrolyte abnormalities including a magnesium of 0.9 and sodium 125 Patient having some recurrent falls underwent CT imaging of the brain which was negative for acute process does have some bruising noted and normally takes Plavix and will hold for now Patient with some congestion and denies any sick contacts and tested for covid, influenza, RSV and was found to be positive for COVID-19. Patient reports she has had immunizations for this. Will add vitamin C, D, and zinc. Patient in no respiratory compromise and is maintaining oxygen saturations above 92% on room air. Patient did strike her face during the fall was significant bruising noted and will use SCDs for DVT prophylaxis at this time. Monitor for any further bleeding We'll have PT/OT therapy evaluate patient is patient is significantly weak and have been having recurrent falls Patient normally takes glyburide/metformin although blood sugars are uncontrolled and may need to consider just resuming metformin and close outpatient follow-up. Will initiate sliding scale with Accu-Cheks before meals and at bedtime and 2 AM and was started on IV hydration with dextrose and normal saline Repeat a.m. labs ordered as ER reported they replaced the potassium and magnesium per protocol Encouraged oral intake Increased activity as tolerated The impression and plan of care has been dictated by Quiana Dumont, nurse practitioner as directed. Dr. Ara MD I have performed a history and examination and MDM of this patient, discussed the same with the dictator, and agree with the dictator's assessment and plan as written ,documented as a scribe. Based on total visit time, I have performed more than 50% of the visit. Any additional findings or plans will be noted. Past Medical History Past Medical History: Diabetes Mellitus, Hyperlipidemia, Hypertension, Osteoarthritis (OA) Additional Past Medical History / Comment(s): wound vac to rt knee History of Any Multi-Drug Resistant Organisms: None Reported Past Surgical History: Appendectomy, Cholecystectomy Additional Past Surgical History / Comment(s): Lt knee surgry Past Anesthesia/Blood Transfusion Reactions: No Reported Reaction Past Psychological History: No Psychological Hx Reported Smoking Status: Former smoker Past Alcohol Use History: None Reported Past Drug Use History: None Reported - Past Family History Mother Family Medical History: Cancer Father Family Medical History: CVA/TIA Medications and Allergies Home Medications Medication Instructions Recorded Confirmed Type Lisinopril-Hctz 20-25 mg 1 tab PO DAILY 12/03/15 11/11/23 History [Zestoretic 20-25] Gabapentin [Neurontin] 300 mg PO TID 01/14/16 11/11/23 History glyBURIDE/METFORMIN HCL 1 tab PO DAILY 11/10/21 11/11/23 History [Glucovance 5-500 mg] Clopidogrel [Plavix] 75 mg PO DAILY #30 tab 11/11/21 11/11/23 Rx Ibuprofen [Motrin] 800 mg PO Q8H PRN 10/28/22 11/11/23 History Allergies Allergy/AdvReac Type Severity Reaction Status Date / Time Penicillins Allergy Rash/Hives Verified 11/11/23 08:57 Physical Exam Vitals: Vital Signs Temp Pulse Pulse Resp BP BP Pulse Ox 11/12/23 02:00 98.2 F 66 16 143/84 98 11/11/23 19:42 98.3 F 69 16 105/66 99 11/11/23 16:17 98.1 F 70 18 121/70 97 11/11/23 14:46 98.1 F 64 18 108/72 98 11/11/23 10:00 68 18 103/63 95 11/11/23 07:33 98.3 F 66 18 120/61 95 11/11/23 05:15 57 L 17 126/61 Intake and Output 11/11/23 11/11/23 11/12/23 14:59 22:59 06:59 Other: Voiding Method Toilet # Voids 1 Results CBC & Chem 7: 11/11/23 06:45 11/11/23 06:45 Labs: Abnormal Lab Results - Last 24 Hours (Table) 11/11/23 11/11/23 11/11/23 Range/Units 06:45 06:45 07:20 RBC 3.69 L (3.80-5.40) m/uL Sodium 125 L (137-145) mmol/L Chloride 91 L (98-107) mmol/L Glucose 60 L (74-99) mg/dL POC Glucose (mg/dL) 61 L (70-110) mg/dL Calcium 8.2 L (8.4-10.2) mg/dL Total Protein 5.5 L (6.3-8.2) g/dL Albumin 2.9 L (3.5-5.0) g/dL Urine Appearance (Clear) Urine Protein (Negative) Urine Blood (Negative) Ur Leukocyte Esterase (Negative) Urine WBC (0-5) /hpf Urine Bacteria (None) /hpf SARS-CoV-2 (PCR) (Not Detectd) 11/11/23 11/11/23 11/11/23 Range/Units 09:16 12:10 12:20 RBC (3.80-5.40) m/uL Sodium (137-145) mmol/L Chloride (98-107) mmol/L Glucose (74-99) mg/dL POC Glucose (mg/dL) 65 L (70-110) mg/dL Calcium (8.4-10.2) mg/dL Total Protein (6.3-8.2) g/dL Albumin (3.5-5.0) g/dL Urine Appearance Cloudy H (Clear) Urine Protein Trace H (Negative) Urine Blood Trace H (Negative) Ur Leukocyte Esterase Large H (Negative) Urine WBC 23 H (0-5) /hpf Urine Bacteria Few H (None) /hpf SARS-CoV-2 (PCR) Detected A (Not Detectd) 11/11/23 11/11/23 Range/Units 16:46 20:10 RBC (3.80-5.40) m/uL Sodium (137-145) mmol/L Chloride (98-107) mmol/L Glucose (74-99) mg/dL POC Glucose (mg/dL) 116 H 149 H (70-110) mg/dL Calcium (8.4-10.2) mg/dL Total Protein (6.3-8.2) g/dL Albumin (3.5-5.0) g/dL Urine Appearance (Clear) Urine Protein (Negative) Urine Blood (Negative) Ur Leukocyte Esterase (Negative) Urine WBC (0-5) /hpf Urine Bacteria (None) /hpf SARS-CoV-2 (PCR) (Not Detectd) Assessment and Plan Time with Patient: Greater than 30
[2023-11-12 06:08] LABS: Glucose,Whole Blood 148 mg/dL (70-110)
[2023-11-12] MEDS: INSULIN ASPART (NovoLOG) 100 UNIT/ML VIAL SQ SCH ×4 (06:14→21:32)
[2023-11-12 07:04] LABS: Basophils % (A) 0 %; Eosinophils % (A) 0 %; HGB 12.5 gm/dL (11.4-16.0); Lymphocytes # (A) 1.1 k/uL (1.0-4.8); Lymphocytes % (A) 21 %; MCH 31.9 pg (25.0-35.0); MCHC 33.8 g/dL (31.0-37.0); MCV 94.3 fL (80.0-100.0); Mean Platelet Volume 9.3; Monocytes # (A) 0.5 k/uL (0-1.0); Monocytes % (A) 9 %; Neutrophils # (A) 3.6 k/uL (1.3-7.7); Neutrophils % (A) 68 %; Platelet Count 193 k/uL (150-450); RBC 3.92 m/uL (3.80-5.40); RDW 12.2 % (11.5-15.5); WBC 5.2 k/uL (3.8-10.6)
[2023-11-12 07:25] LABS: African American GFR (CKD) 68 (>60 ml/min/1.73 sqM); Anion Gap 7 mmol/L; Blood Urea Nitrogen 12 mg/dL (7-17); Calcium 8.7 mg/dL (8.4-10.2); Carbon Dioxide 26 mmol/L (22-30); Chloride 93 mmol/L (98-107); Glucose 152 mg/dL (74-99); Magnesium 1.4 mg/dL (1.6-2.3); Non-African American GFR(CKD) 59 (>60 ml/min/1.73 sqM); Potassium 3.7 mmol/L (3.5-5.1); Sodium 126 mmol/L (137-145)
[2023-11-12] MEDS ORDERED: Magnesium Replacement Protocol 1 EACH MISC MISCELLANE PRN (08:55)
[2023-11-12] MEDS: ASCORBIC ACID 500 MG TAB PO SCH (09:02)
[2023-11-12] MEDS: ZINC SULFATE 220 MG CAP PO SCH (09:02)
[2023-11-12] MEDS: CHOLECALCIFEROL 125 MCG (5000 IU) TABLET PO SCH (09:02)
[2023-11-12] MEDS: FAMOTIDINE 20 MG TAB PO SCH (09:02)
[2023-11-12] MEDS: MAGNESIUM OXIDE 400 MG TAB PO SCH ×2 (09:02→21:41)
[2023-11-12 11:02] LABS: Glucose,Whole Blood 163 mg/dL (70-110)
[2023-11-12 16:44] LABS: Glucose,Whole Blood 210 mg/dL (70-110)
[2023-11-12 19:49] LABS: Glucose,Whole Blood 130 mg/dL (70-110)
[2023-11-12] MEDS ORDERED: HALOPERIDOL LACTATE 5 MG/ML 1 ML VIAL IM STA (23:16)
[2023-11-13] MEDS ORDERED: LORazepam 2 MG/ML INJ IM STA (00:34)
--- NOTE | 2023-11-13 00:40 | P.PN ---
Subjective Progress Note Date: 11/12/23 This is a 88-year-old female who presented to the emergency department via EMS after having increased falls and did strike her face. Patient reports she has been having low blood sugars and reports more frequent weakness and falls. Patient is on Plavix and is noted to have ecchymosis over both eyes and cheeks along with nasal bone as she reports she struck her face when she fell on the floor. Patient denies any loss of consciousness or syncopal episode. Patient follows with Dr. Piedad Tompkins in the outpatient setting with past medical history of diabetes mellitus, hyperlipidemia, hypertension, osteoarthritis. Patient denies any illicit drug use or alcohol and is a former smoker for many years ago. Patient reports she takes oral medications to control her diabetes. Patient reports she lives alone. Patient is extremely hard of hearing. Patient denies any recent sick contacts although patient appears quite congested on exam we'll test for covert, influenza, RSV. Patient did undergo CT of the brain due to the fall and striking her face which was negative for any acute process. Labs revi ewed revealing sodium is 126, potassium 3.1, BUN 16 with a creatinine 0.9, blood sugar was 39, magnesium critically low at 0.9 and troponin was negative. Patient was started on D5 normal saline in the ER and admitted under observation for hyponatremia and hypoglycemia with falls. 11/12/2023 Patient is lying in the bed. Awake alert and oriented x 1-2. Trying to get out of the bed. No complaints of chest pain or shortness of breath. Patient has been afebrile. No headache or dizziness or lightheadedness. No episodes of hypoglycemia. IV fluids will be changed to normal saline without D5. Magnesium is being replaced. Laboratory data showed sodium 126 potassium 3.7 chloride 93 bicarb is 26 BUN 12 and creatinine 0.88. Current medications reviewed. PHYSICAL EXAMINATION: GENERAL: The patient is alert and oriented x1-2, extremely hard of hearing, thin built elderly appearing female Well developed HEENT: Pupils are round and equally reacting to light. EOMI. no scleral icterus. No conjunctival pallor. Normocephalic, atraumatic. No pharyngeal erythema. No thyromegaly. CARDIOVASCULAR: S1 and S2 muffled PULMONARY: diminished breath sounds bilaterally with no wheezing or rhonchi n oted. ABDOMEN: soft. Nontender on exam. Thin. non-distended, normoactive bowel sounds. No palpable organomegaly. MUSCULOSKELETAL: No joint swelling or deformity. EXTREMITIES: No cyanosis, clubbing, or pedal edema. NEUROLOGICAL: Gross neurological examination did not reveal any focal deficits. Diffuse weakness SKIN: No rashes. Ecchymosis noted around bilateral eye orbits as well as cheekbones and nasal bone Assessment: Electrolyte abnormalities including hyponatremia and severe hypomagnesemia Hypoglycemia with history of diabetes mellitus, type II, uncontrolled [id number] Recurrent falls with generalized weakness Acute COVID-19 infection Acute metabolic encephalopathy secondary infection History of hyperlipidemia History of hypertension Osteoarthritis GI prophylaxis DVT prophylaxis Full code Plan: Recommend to continue with current medications and management. Patient was admitted under observation for hyponatremia and recurrent hypoglycemia with falls. Patient will require more than two night hospitalization secondary to severe electrolyte abnormalities including a magnesium of 0.9 and sodium 125 Patient having some recurrent falls underwent CT imaging of the brain which was negative for acute process does have some bruising noted and normally takes Plavix and will hold for now Patient with some congestion and denies any sick contacts and tested for covid, influenza, RSV and was found to be positive for COVID-19. Patient reports she has had immunizations for this. Will add vitamin C, D, and zinc. Patient in no respiratory compromise and is maintaining oxygen saturations above 92% on room air. Patient did strike her face during the fall was significant bruising noted and will use SCDs for DVT prophylaxis at this time. Monitor for any further bleeding We'll have PT/OT therapy evaluate patient is patient is significantly weak and have been having recurrent falls Patient normally takes glyburide/metformin although blood sugars are uncontroll ed and may need to consider just resuming metformin and close outpatient follow- up. Glipizide will be on hold at discharge. c/w sliding scale with Accu-Cheks before meals and at bedtime and 2 AM and was started on IV hydration with dextrose and normal saline. IV fluids changed to normal saline only. Repeat a.m. labs ordered as ER reported they replaced the potassium and magnesium per protocol Encouraged oral intake Increased activity as tolerated Objective - Vital Signs Vital signs: Vital Signs Temp 98.8 F 11/12/23 19:20 Pulse 78 11/12/23 19:20 Resp 18 11/12/23 19:20 BP 152/67 11/12/23 19:20 Pulse Ox 93 L 12/30/23 19:20 FiO2 Intake & Output 11/12/23 11/12/23 11/13/23 06:59 18:59 06:59 Other: Voiding Method Toilet # Voids 3 3 - Labs CBC & Chem 7: 11/12/23 06:28 11/12/23 06:28 Labs: Abnormal Lab Results - Last 24 Hours (Table) 11/12/23 11/12/23 11/12/23 Range/Units 05:54 06:28 11:01 Sodium 126 L (137-145) mmol/L Chloride 93 L (98-107) mmol/L Glucose 152 H (74-99) mg/dL POC Glucose (mg/dL) 148 H 163 H (70-110) mg/dL Magnesium 1.4 L (1.6-2.3) mg/dL 11/12/23 11/12/23 Range/Units 16:43 19:47 Sodium (137-145) mmol/L Chloride (98-107) mmol/L Glucose (74-99) mg/dL POC Glucose (mg/dL) 210 H 130 H (70-110) mg/dL Magnesium (1.6-2.3) mg/dL
[2023-11-13] MEDS: SODIUM CHLORIDE 0.9% 1,000 ML IV SCH ×2 (02:06→21:23)
[2023-11-13] MEDS ORDERED: ZINC OXIDE PASTE (Z-GUARD) 1 APPLIC TOPICAL PRN (08:05)
[2023-11-13 08:20] LABS: Glucose,Whole Blood 139 mg/dL (70-110)
[2023-11-13] MEDS: INSULIN ASPART (NovoLOG) 100 UNIT/ML VIAL SQ SCH ×4 (08:21→21:13)
--- NOTE | 2023-11-13 08:28 | CT ---
EXAMINATION TYPE: CT brain wo con CT DLP: 2388.4 mGycm, Automated exposure control for dose reduction was used. DATE OF EXAM: 11/13/2023 8:13 AM COMPARISON: . CLINICAL INDICATION:Female, 88 years old with history of fall/AMS, altered mental status TECHNIQUE: Brain: Axial CT images of the brain were obtained with coronal and sagittal reformats created and rev iewed. Contrast used: None. Oral contrast used: None. FINDINGS: Brain: Limited motion exam. Extra-axial spaces: No abnormal extra-axial fluid collections. Ventricular system: Dilatation in proportion to cerebral atrophy. Cerebral parenchyma: Cerebral atrophy. No acute intraparenchymal hemorrhage or mass effect. The stein -white junction is well differentiated. Scattered hypoattenuating areas are seen within the white mat ter. Cerebellum: Unremarkable. Mass effect: No evidence of midline shift. Intracranial vasculature: unremarkable Soft tissues: Normal. Calvarium/osseous structures: No depressed skull fracture. Paranasal sinuses and mastoid air cells: Mild scattered paranasal sinus disease. Visualized orbits: Orbital contents are intact. IMPRESSION: Limited motion exam, within the limitations of the exam 1. No acute intracranial process. 2. Nonspecific white matter changes, likely secondary to chronic small vessel ischemic disease.
[2023-11-13] MEDS: CHOLECALCIFEROL 125 MCG (5000 IU) TABLET PO SCH (10:10)
[2023-11-13] MEDS: MAGNESIUM OXIDE 400 MG TAB PO SCH ×2 (10:10→21:22)
[2023-11-13] MEDS: FAMOTIDINE 20 MG TAB PO SCH (10:10)
[2023-11-13] MEDS: ASCORBIC ACID 500 MG TAB PO SCH (10:10)
[2023-11-13] MEDS: ZINC SULFATE 220 MG CAP PO SCH (10:11)
[2023-11-13 11:14] LABS: Glucose,Whole Blood 130 mg/dL (70-110)
[2023-11-13] MEDS: NYSTATIN 100,000 UNIT/GM POWD 15 GM TOPICAL SCH ×3 (12:12→21:24)
[2023-11-13 13:08] LABS: Basophils % (A) 0 %; Eosinophils % (A) 1 %; HCT 36.6 % (34.0-46.0); HGB 12.4 gm/dL (11.4-16.0); Lymphocytes # (A) 1.4 k/uL (1.0-4.8); Lymphocytes % (A) 23 %; MCH 31.6 pg (25.0-35.0); MCHC 33.8 g/dL (31.0-37.0); MCV 93.5 fL (80.0-100.0); Mean Platelet Volume 9.2; Monocytes # (A) 0.5 k/uL (0-1.0); Monocytes % (A) 8 %; Neutrophils # (A) 3.9 k/uL (1.3-7.7); Neutrophils % (A) 66 %; Platelet Count 168 k/uL (150-450); RBC 3.91 m/uL (3.80-5.40); RDW 12.2 % (11.5-15.5)
[2023-11-13 13:12] LABS: African American GFR (CKD) 68 (>60 ml/min/1.73 sqM); Anion Gap 10 mmol/L; Blood Urea Nitrogen 15 mg/dL (7-17); Carbon Dioxide 23 mmol/L (22-30); Chloride 95 mmol/L (98-107); Glucose 128 mg/dL (74-99); Magnesium 1.6 mg/dL (1.6-2.3); Non-African American GFR(CKD) 59 (>60 ml/min/1.73 sqM); Potassium 3.7 mmol/L (3.5-5.1); Sodium 128 mmol/L (137-145)
[2023-11-13 16:53] LABS: Glucose,Whole Blood 115 mg/dL (70-110)
[2023-11-13] MEDS: MAGNESIUM SULFATE-D5W PMX 1 GM in DEXTROSE/WATER 1 100ML.BAG IVPB SCH ×3 (17:05→22:07)
[2023-11-13 20:56] LABS: Glucose,Whole Blood 130 mg/dL (70-110)
[2023-11-13] MEDS ORDERED: QUEtiapine 25 MG TAB PO SCH (21:00)
[2023-11-14] MEDS: MAGNESIUM SULFATE-D5W PMX 1 GM in DEXTROSE/WATER 1 100ML.BAG IVPB SCH ×2 (01:01→01:04)
[2023-11-14] MEDS: SODIUM CHLORIDE 0.9% 1,000 ML IV SCH ×2 (05:33→15:51)
[2023-11-14 06:02] LABS: Glucose,Whole Blood 103 mg/dL (70-110)
[2023-11-14] MEDS: INSULIN ASPART (NovoLOG) 100 UNIT/ML VIAL SQ SCH ×4 (06:08→20:22)
[2023-11-14] MEDS: FAMOTIDINE 20 MG TAB PO SCH (09:38)
[2023-11-14] MEDS: ZINC SULFATE 220 MG CAP PO SCH (09:38)
[2023-11-14] MEDS: ASCORBIC ACID 500 MG TAB PO SCH (09:38)
[2023-11-14] MEDS: NYSTATIN 100,000 UNIT/GM POWD 15 GM TOPICAL SCH ×3 (09:38→20:23)
[2023-11-14] MEDS: MAGNESIUM OXIDE 400 MG TAB PO SCH ×2 (09:38→20:23)
[2023-11-14] MEDS: CHOLECALCIFEROL 125 MCG (5000 IU) TABLET PO SCH (09:38)
[2023-11-14 10:49] LABS: BUN/Creat Ratio 15.62 Ratio (12.00-20.00); Blood Urea Nitrogen 12.5 mg/dL (9.0-27.0); Calcium 8.9 mg/dL (8.7-10.3); Carbon Dioxide 22.6 mmol/L (21.6-31.8); Chloride 96 mmol/L (96-109); Glucose 111 mg/dL (70-110); Potassium 3.3 mmol/L (3.5-5.5); Sodium 131 mmol/L (135-145)
[2023-11-14 11:17] LABS: Glucose,Whole Blood 189 mg/dL (70-110)
[2023-11-14] MEDS ORDERED: POTASSIUM CHLORIDE ER 20 MEQ TAB.ER PO STA (14:56)
[2023-11-14] MEDS ORDERED: QUEtiapine 25 MG TAB PO PRN (14:56)
[2023-11-14] MEDS: lisinopriL 10 MG TAB PO SCH (15:26)
[2023-11-14 16:18] LABS: Glucose,Whole Blood 138 mg/dL (70-110)
[2023-11-14 19:52] LABS: Glucose,Whole Blood 132 mg/dL (70-110)
[2023-11-15] MEDS: SODIUM CHLORIDE 0.9% 1,000 ML IV SCH (05:11)
[2023-11-15] MEDS: INSULIN ASPART (NovoLOG) 100 UNIT/ML VIAL SQ SCH ×4 (06:12→20:38)
[2023-11-15 06:13] LABS: Glucose,Whole Blood 124 mg/dL (70-110)
[2023-11-15] MEDS: ZINC SULFATE 220 MG CAP PO SCH (08:32)
[2023-11-15] MEDS: ASCORBIC ACID 500 MG TAB PO SCH (08:33)
[2023-11-15] MEDS: FAMOTIDINE 20 MG TAB PO SCH (08:33)
[2023-11-15] MEDS: CHOLECALCIFEROL 125 MCG (5000 IU) TABLET PO SCH (08:33)
[2023-11-15] MEDS: MAGNESIUM OXIDE 400 MG TAB PO SCH ×2 (08:33→20:45)
[2023-11-15] MEDS: lisinopriL 10 MG TAB PO SCH (08:33)
[2023-11-15] MEDS: CLOPIDOGREL 75 MG TAB PO SCH (08:33)
[2023-11-15 11:08] LABS: Glucose,Whole Blood 114 mg/dL (70-110)
--- NOTE | 2023-11-15 15:17 | P.PN ---
Subjective Progress Note Date: 11/15/23 This is a 88-year-old female who presented to the emergency department via EMS after having increased falls and did strike her face. Patient reports she has been having low blood sugars and reports more frequent weakness and falls. Patient is on Plavix and is noted to have ecchymosis over both eyes and cheeks along with nasal bone as she reports she struck her face when she fell on the floor. Patient denies any loss of consciousness or syncopal episode. Patient follows with Dr. Piedad Tompkins in the outpatient setting with past medical history of diabetes mellitus, hyperlipidemia, hypertension, osteoarthritis. Patient denies any illicit drug use or alcohol and is a former smoker for many years ago. Patient reports she takes oral medications to control her diabetes. Patient reports she lives alone. Patient is extremely hard of hearing. Patient denies any recent sick contacts although patient appears quite congested on exam we'll test for covert, influenza, RSV. Patient did undergo CT of the brain due to the fall and striking her face which was negative for any acute process. Labs revie tue revealing sodium is 126, potassium 3.1, BUN 16 with a creatinine 0.9, blood sugar was 39, magnesium critically low at 0.9 and troponin was negative. Patient was started on D5 normal saline in the ER and admitted under observation for hyponatremia and hypoglycemia with falls. 11/12/2023 Patient is lying in the bed. Awake alert and oriented x 1-2. Trying to get out of the bed. No complaints of chest pain or shortness of breath. Patient has been afebrile. No headache or dizziness or lightheadedness. No episodes of hypoglycemia. IV fluids will be changed to normal saline without D5. Magnesium is being replaced. Laboratory data showed sodium 126 potassium 3.7 chloride 93 bicarb is 26 BUN 12 and creatinine 0.88. Current medications reviewed. 11/15/2023 Patient is seen and evaluated and follow-up alert and oriented to baseline extremely hard of hearing. Patient is not requiring oxygen maintaining oxygen saturations above 99% on room air although was Covid positive. Patient's blood sugars being monitored and will continue current regimen. Patient was maintained on IV hydration and labs have improved and will follow-up with repeat labs in the a.m. and discontinue fluids. Patient awaiting PT/OT therapy to evaluate the patient for possible ECF. Case management is following working on discharge planning as patient does live home alone and feel this is an unsafe discharge at this point. Review of systems: Constitutional: No reports of fatigue, fever, or chills Cardiovascular: No reports of chest pain or palpitations Respiratory: No reports of shortness of breath or cough GI: No reports of nausea, vomiting, or diarrhea : No reports of dysuria or retention Neurovascular: reports of generalized weakness and reports wanting to get up out of the bed All medications have been reviewed PHYSICAL EXAMINATION: GENERAL: The patient is alert and oriented x2, extremely hard of hearing, thin built elderly appearing female Well developed HEENT: Pupils are round and equally reacting to light. EOMI. no scleral icterus. No conjunctival pallor. Normocephalic, atraumatic. No pharyngeal erythema. No thyromegaly. CARDIOVASCULAR: S1 and S2 muffled PULMONARY: diminished breath sounds bilaterally with no wheezing or rhonchi noted. ABDOMEN: soft. Nontender on exam. Thin. non-distended, normoactive bowel sounds. No palpable organomegaly. MUSCULOSKELETAL: No joint swelling or deformity. EXTREMITIES: No cyanosis, clubbing, or pedal edema. NEUROLOGICAL: Gross neurological examination did not reveal any focal deficits. Diffuse weakness SKIN: No rashes. Ecchymosis noted around bilateral eye orbits as well as cheekbones and nasal bone Assessment: Electrolyte abnormalities including hyponatremia and severe hypomagnesemia Hypoglycemia with history of diabetes mellitus, type II, uncontrolled [id number] Recurrent falls with generalized weakness Acute COVID-19 infection History of hyperlipidemia History of hypertension Osteoarthritis GI prophylaxis DVT prophylaxis Full code Plan: Recommend to continue with current medications and management. Sodium slightly elevated and improved at 131 and will follow-up with repeat labs. Potassium 3.3 and replaced per protocol awaiting a.m. labs Patient having some recurrent falls underwent CT imaging of the brain which was negative for acute process does have some bruising noted and normally takes Plavix and will hold for now. Await PT/OT therapy evaluation Case management following the event patient may require ECF. Patient appears significantly weak and recommend ECF for continued PT/OT therapy. Patient was positive for COVID-19 although maintaining oxygen saturation above 99% on room air Patient did strike her face during the fall was significant bruising noted and will use SCDs for DVT prophylaxis at this time. Monitor for any further bleeding Patient normally takes glyburide/metformin although blood sugars are uncontrolled and may need to consider just resuming metformin and close outpatient follow-up. Will initiate sliding scale with Accu-Cheks before meals and at bedtime and 2 AM Encouraged oral intake Increased activity as tolerated Possible discharge planning in the next 24-48 hours. The impression and plan of care has been dictated by Quiana Dumont, nurse practitioner as directed. Dr. Madhuri MD I have performed a history and examination and MDM of this patient, discussed the same with the dictator, and agree with the dictator's assessment and plan as written ,documented as a scribe. Based on total visit time, I have performed more than 50% of the visit. Any additional findings or plans will be noted. Objective - Vital Signs Vital signs: Vital Signs Temp 97.6 F 11/15/23 13:27 Pulse 63 11/15/23 13:27 Resp 19 11/15/23 13:27 BP 134/73 11/15/23 13:27 Pulse Ox 99 11/15/23 13:27 FiO2 Intake & Output 11/14/23 11/15/23 11/15/23 18:59 06:59 18:59 Output Total 400 100 Balance -400 -100 Output: Urine 400 100 Other: Voiding Method External Catheter External Catheter External Catheter # Voids 650 3 # Bowel Movements 1 3 - Labs CBC & Chem 7: 11/13/23 12:26 11/14/23 03:30 Labs: Abnormal Lab Results - Last 24 Hours (Table) 11/14/23 11/14/23 11/15/23 Range/Units 16:17 19:51 06:11 POC Glucose (mg/dL) 138 H 132 H 124 H (70-110) mg/dL 11/15/23 Range/Units 11:07 POC Glucose (mg/dL) 114 H (70-110) mg/dL Microbiology - Last 24 Hours (Table) 11/13/23 17:45 Urine Culture - Final Urine,Voided
[2023-11-15 16:24] LABS: Glucose,Whole Blood 126 mg/dL (70-110)
[2023-11-15] MEDS: NYSTATIN 100,000 UNIT/GM POWD 15 GM TOPICAL SCH ×3 (16:50→20:45)
[2023-11-15 19:52] LABS: Glucose,Whole Blood 131 mg/dL (70-110)
[2023-11-16 06:01] LABS: Glucose,Whole Blood 117 mg/dL (70-110)
[2023-11-16] MEDS: INSULIN ASPART (NovoLOG) 100 UNIT/ML VIAL SQ SCH ×4 (06:34→21:04)
[2023-11-16] MEDS: NYSTATIN 100,000 UNIT/GM POWD 15 GM TOPICAL SCH ×3 (08:29→20:56)
[2023-11-16] MEDS: CLOPIDOGREL 75 MG TAB PO SCH (08:30)
[2023-11-16] MEDS: MAGNESIUM OXIDE 400 MG TAB PO SCH ×2 (08:30→20:56)
[2023-11-16] MEDS: ZINC SULFATE 220 MG CAP PO SCH (08:30)
[2023-11-16] MEDS: ASCORBIC ACID 500 MG TAB PO SCH (08:30)
[2023-11-16] MEDS: lisinopriL 10 MG TAB PO SCH (08:30)
[2023-11-16] MEDS: CHOLECALCIFEROL 125 MCG (5000 IU) TABLET PO SCH (08:30)
[2023-11-16] MEDS: FAMOTIDINE 20 MG TAB PO SCH (08:30)
[2023-11-16 09:35] LABS: BUN/Creat Ratio 13.29 Ratio (12.00-20.00); Blood Urea Nitrogen 9.3 mg/dL (9.0-27.0); Calcium 8.8 mg/dL (8.7-10.3); Carbon Dioxide 22.1 mmol/L (21.6-31.8); Chloride 98 mmol/L (96-109); Glucose 118 mg/dL (70-110); Potassium 3.4 mmol/L (3.5-5.5); Sodium 132 mmol/L (135-145)
[2023-11-16] MEDS ORDERED: Potassium Replacement Protocol 1 EACH MISC MISCELLANE PRN (10:24)
[2023-11-16] MEDS: POTASSIUM CHLORIDE ER 20 MEQ TAB.ER PO SCH ×2 (10:39→13:30)
[2023-11-16 11:48] LABS: Glucose,Whole Blood 130 mg/dL (70-110)
[2023-11-16 16:39] LABS: Glucose,Whole Blood 128 mg/dL (70-110)
[2023-11-16 21:05] LABS: Glucose,Whole Blood 112 mg/dL (70-110)
[2023-11-17 05:10] LABS: Glucose,Whole Blood 104 mg/dL (70-110)
[2023-11-17] MEDS: INSULIN ASPART (NovoLOG) 100 UNIT/ML VIAL SQ SCH ×3 (05:11→16:19)
--- NOTE | 2023-11-17 06:18 | P.PN ---
Subjective Progress Note Date: 11/17/23 This is a 88-year-old female who presented to the emergency department via EMS after having increased falls and did strike her face. Patient reports she has been having low blood sugars and reports more frequent weakness and falls. Patient is on Plavix and is noted to have ecchymosis over both eyes and cheeks along with nasal bone as she reports she struck her face when she fell on the floor. Patient denies any loss of consciousness or syncopal episode. Patient follows with Dr. Piedad Tompkins in the outpatient setting with past medical history of diabetes mellitus, hyperlipidemia, hypertension, osteoarthritis. Patient denies any illicit drug use or alcohol and is a former smoker for many years ago. Patient reports she takes oral medications to control her diabetes. Patient reports she lives alone. Patient is extremely hard of hearing. Patient denies any recent sick contacts although patient appears quite congested on exam we'll test for covert, influenza, RSV. Patient did undergo CT of the brain due to the fall and striking her face which was negative for any acute process. Labs revie tue revealing sodium is 126, potassium 3.1, BUN 16 with a creatinine 0.9, blood sugar was 39, magnesium critically low at 0.9 and troponin was negative. Patient was started on D5 normal saline in the ER and admitted under observation for hyponatremia and hypoglycemia with falls. 11/12/2023 Patient is lying in the bed. Awake alert and oriented x 1-2. Trying to get out of the bed. No complaints of chest pain or shortness of breath. Patient has been afebrile. No headache or dizziness or lightheadedness. No episodes of hypoglycemia. IV fluids will be changed to normal saline without D5. Magnesium is being replaced. Laboratory data showed sodium 126 potassium 3.7 chloride 93 bicarb is 26 BUN 12 and creatinine 0.88. Current medications reviewed. 11/15/2023 Patient is seen and evaluated and follow-up alert and oriented to baseline extremely hard of hearing. Patient is not requiring oxygen maintaining oxygen saturations above 99% on room air although was Covid positive. Patient's blood sugars being monitored and will continue current regimen. Patient was maintained on IV hydration and labs have improved and will follow-up with repeat labs in the a.m. and discontinue fluids. Patient awaiting PT/OT therapy to evaluate the patient for possible ECF. Case management is following working on discharge planning as patient does live home alone and feel this is an unsafe discharge at this point. 11/16/2023 Patient is seen in follow-up this morning asleep although arousable reports no distress and feeling fine. Patient's potassium slightly low and replaced per protocol will follow-up with repeat labs. Awaiting PT/OT therapy to evaluate for possible ECF. Patient would like to go home. Patient is currently afebrile denies any chest pain or shortness of breath and is maintaining oxygen saturations above 90% on room air. Patient tolerating diet with no reported nausea or vomiting. Will await PT/OT therapy with case management following an work on discharge planning soon. Review of systems: Constitutional: reports of fatigue, no fever, or chills Cardiovascular: No reports of chest pain or palpitations Respiratory: No reports of shortness of breath or cough GI: No reports of nausea, vomiting, or diarrhea : No reports of dysuria or retention Neurovascular: reports of generalized weakness All medications have been reviewed PHYSICAL EXAMINATION: GENERAL: The patient is alert and oriented x2, extremely hard of hearing, thin built elderly appearing female Well developed HEENT: Pupils are round and equally reacting to light. EOMI. no scleral icterus. No conjunctival pallor. Normocephalic, atraumatic. No pharyngeal erythema. No thyromegaly. CARDIOVASCULAR: S1 and S2 muffled PULMONARY: diminished breath sounds bilaterally with no wheezing or rhonchi noted. ABDOMEN: soft. Nontender on exam. Thin. non-distended, normoactive bowel sounds. No palpable organomegaly. MUSCULOSKELETAL: No joint swelling or deformity. EXTREMITIES: No cyanosis, clubbing, or pedal edema. NEUROLOGICAL: Gross neurological examination did not reveal any focal deficits. Diffuse weakness SKIN: No rashes. Ecchymosis noted around bilateral eye orbits as well as cheekbones and nasal bone Assessment: Electrolyte abnormalities including hyponatremia and severe hypomagnesemia, improved Hypoglycemia with history of diabetes mellitus, type II, uncontrolled no [id number] Recurrent falls with generalized weakness Acute COVID-19 infection History of hyperlipidemia History of hypertension Osteoarthritis GI prophylaxis DVT prophylaxis Full code Plan: Recommend to continue with current medications and management. Sodium improved and potassium 3.4 and replaced and will follow-up with repeat labs Patient having some recurrent falls underwent CT imaging of the brain which was negative for acute process does have some bruising noted and normally takes Plavix and will hold for now. PT/OT therapy evaluated the patient recommending 06/06 supervision with home care and family is agreeable and will be able to come help her with home care being arranged Case management following and arranging for home care in the outpatient setting Patient was positive for COVID-19 although maintaining oxygen saturation above 99% on room air Patient did strike her face during the fall was significant bruising noted and will use SCDs for DVT prophylaxis at this time. Ecchymosis is improving and no further bleeding noted Patient normally takes glyburide/metformin although blood sugars are uncontrolled and may need to consider just resuming metformin and close outpatient follow-up. Will continue sliding scale with Accu-Cheks before meals and at bedtime and 2 AM Encouraged oral intake Increased activity as tolerated Possible discharge planning in the next 24 hours. The impression and plan of care has been dictated by Quiana Dumont, nurse practitioner as directed. Dr. Madhuri MD I have performed a history and examination and MDM of this patient, discussed the same with the dictator, and agree with the dictator's assessment and plan as written ,documented as a scribe. Based on total visit time, I have performed more than 50% of the visit. Any additional findings or plans will be noted. Objective - Vital Signs Vital signs: Vital Signs Temp 97.7 F 11/16/23 07:20 Pulse 69 11/16/23 08:23 Resp 19 11/16/23 08:23 BP 165/79 11/16/23 07:20 Pulse Ox 99 11/16/23 07:20 FiO2 Intake & Output 11/15/23 11/16/23 11/16/23 18:59 06:59 18:59 Output Total 300 Balance -300 Output: Urine 300 Other: Voiding Method External Catheter Diaper Diaper # Voids 1 3 # Bowel Movements 1 1 - Labs CBC & Chem 7: 11/13/23 12:26 11/16/23 03:21 Labs: Abnormal Lab Results - Last 24 Hours (Table) 11/15/23 11/15/23 11/15/23 Range/Units 11:07 16:22 19:50 Sodium (135-145) mmol/L Potassium (3.5-5.5) mmol/L Glucose (70-110) mg/dL POC Glucose (mg/dL) 114 H 126 H 131 H (70-110) mg/dL 11/16/23 11/16/23 Range/Units 03:21 05:59 Sodium 132 L (135-145) mmol/L Potassium 3.4 L (3.5-5.5) mmol/L Glucose 118 H (70-110) mg/dL POC Glucose (mg/dL) 117 H (70-110) mg/dL
[2023-11-17 07:57] LABS: African American GFR (CKD) 81 (>60 ml/min/1.73 sqM); Anion Gap 12 mmol/L; Blood Urea Nitrogen 10 mg/dL (7-17); Carbon Dioxide 20 mmol/L (22-30); Chloride 99 mmol/L (98-107); Glucose 97 mg/dL (74-99); Non-African American GFR(CKD) 70 (>60 ml/min/1.73 sqM); Sodium 131 mmol/L (137-145)
[2023-11-17] MEDS: NYSTATIN 100,000 UNIT/GM POWD 15 GM TOPICAL SCH ×2 (09:53→16:00)
[2023-11-17] MEDS: lisinopriL 10 MG TAB PO SCH (09:54)
[2023-11-17] MEDS: ASCORBIC ACID 500 MG TAB PO SCH (09:54)
[2023-11-17] MEDS: FAMOTIDINE 20 MG TAB PO SCH (09:54)
[2023-11-17] MEDS: CHOLECALCIFEROL 125 MCG (5000 IU) TABLET PO SCH (09:54)
[2023-11-17] MEDS: ZINC SULFATE 220 MG CAP PO SCH (09:54)
[2023-11-17] MEDS: MAGNESIUM OXIDE 400 MG TAB PO SCH (09:54)
[2023-11-17] MEDS: CLOPIDOGREL 75 MG TAB PO SCH (09:54)
[2023-11-17 11:23] LABS: Glucose,Whole Blood 117 mg/dL (70-110)
[2023-11-17 15:00] VITALS: BP 160/95; PULSE 76; RESP 19; TEMP 97.9
[2023-11-17 16:13] LABS: Glucose,Whole Blood 128 mg/dL (70-110)
--- NOTE | 2023-11-20 10:22 | P.DS ---
Providers Date of admission: 11/15/23 09:44 Expected date of discharge: 11/17/23 Attending physician: Janneth Ruiz Primary care physician: Piedad Tompkins MD Hospital Course: Final diagnosis Electrolyte abnormalities including hyponatremia and severe hypomagnesemia, improved Hypoglycemia with history of diabetes mellitus, type II, uncontrolled [id number] Recurrent falls with generalized weakness Acute COVID-19 infection History of hyperlipidemia History of hypertension Osteoarthritis GI prophylaxis DVT prophylaxis Full code Discharge disposition Patient is being discharged in a stable condition with guarded prognosis to home with home care. Patient will follow-up with Dr. Piedad Tompkins in the outpatient setting upon discharge. Total time taken is greater than 35 minutes. Hospital course This is a 88-year-old female who was recently admitted with electrolyte abnormalities with severe hypomagnesemia and hyponatremia also with uncontrolled blood sugars. Patient was taking a combination metformin glyburide pill and blo od sugars were on the lower side being monitored in the hospital and continued on sliding scale. Patient will be discharged home on metformin and instructed to follow-up with primary care provider. Recommend continue monitoring blood sugars and keep a diary of all readings for follow-up. Patient was also found to be acute COVID-19 infection positive and not requiring any supportive care for oxygen. Patient with a slight cough with no production and denies any shortness of breath. Patient seen and evaluated by physical therapy recommending home with home care. Patient will be going home with daughter and other family members will be there to help. Currently no reports of chest pain, shortness of breath, or palpitations. Patient is afebrile. No reports of nausea or vomiting and patient is tolerating diet. Patient will be discharged home today. guarded prognosis and high risk for readmission given patient's comorbidities and uncontrolled diabetes. Physical exam: Gen: This is a 88-year-old female who is, alert and oriented 2, extremely hard of hearing, elderly appearing HEENT: Head is atraumatic, normocephalic. Pupils equal, round. Sclerae is anicteric. NECK: Supple. No JVD. No lymphadenopathy. No thyromegaly. LUNGS: diminished breath sounds bilaterally otherwise Clear to auscultation. scattered rhonchi. No intercostal retractions. HEART: Regular rate and rhythm. No murmur. ABDOMEN: Soft. Bowel sounds are present. No masses. No tenderness. EXTREMITIES: No pedal edema. No calf tenderness. NEUROLOGICAL: Patient is awake, alert and oriented x2. Cranial nerves 2 through 12 are grossly intact. diffusely weak Please refer to medication reconciliation sheet for a list of medications. The impression and plan of care has been dictated by Quiana Dumont, Nurse Practitioner as directed. Dr. Madhuri MD I have performed a history and examination and MDM of this patient, discussed the same with the dictator, and agree with the dictator's assessment and plan as written ,documented as a scribe. Based on total visit time, I have performed more than 50% of the visit. Patient Condition at Discharge: Fair Plan - Discharge Summary Discharge Rx Participant: Yes New Discharge Prescriptions: New Acetaminophen Tab [Tylenol] 650 mg PO Q6HR PRN tab PRN Reason: Mild Pain Or Fever > 100.5 lisinopriL [Zestril] 10 mg PO DAILY #30 tab Magnesium Oxide [Mag-Ox] 400 mg PO BID #60 tab metFORMIN HCL 500 mg PO BID 30 Days #60 tablet Nystatin 100,000 Unit/gm Powd [Mycostatin Powder] 1 applic TOPICAL TID #1 each Zinc Sulfate [Orazinc] 220 mg PO DAILY 15 Days #15 cap Famotidine [Pepcid] 20 mg PO DAILY #30 tab QUEtiapine [SEROquel] 12.5 mg PO HS PRN #15 tab PRN Reason: Agitation Ascorbic Acid [Vitamin C] 500 mg PO DAILY #30 tab Cholecalciferol [Vitamin D3 (125 Mcg = 5000 Iu)] 125 mcg PO DAILY #30 tab Continue Clopidogrel [Plavix] 75 mg PO DAILY #30 tab Ibuprofen [Motrin] 800 mg PO Q8H PRN PRN Reason: Pain Discontinued Lisinopril-Hctz 20-25 mg [Zestoretic 20-25] 1 tab PO DAILY Gabapentin [Neurontin] 300 mg PO TID glyBURIDE/METFORMIN HCL [Glucovance 5-500 mg] 1 tab PO DAILY Discharge Medication List Clopidogrel [Plavix] 75 mg PO DAILY #30 tab 11/11/21 [Rx] Ibuprofen [Motrin] 800 mg PO Q8H PRN 10/28/22 [History] Acetaminophen Tab [Tylenol] 650 mg PO Q6HR PRN tab 11/17/23 [Rx] Ascorbic Acid [Vitamin C] 500 mg PO DAILY #30 tab 11/17/23 [Rx] Cholecalciferol [Vitamin D3 (125 Mcg = 5000 Iu)] 125 mcg PO DAILY #30 tab 11/17/23 [Rx] Famotidine [Pepcid] 20 mg PO DAILY #30 tab 11/17/23 [Rx] Magnesium Oxide [Mag-Ox] 400 mg PO BID #60 tab 11/17/23 [Rx] Nystatin 100,000 Unit/gm Powd [Mycostatin Powder] 1 applic TOPICAL TID #1 each 11/17/23 [Rx] QUEtiapine [SEROquel] 12.5 mg PO HS PRN #15 tab 11/17/23 [Rx] Zinc Sulfate [Orazinc] 220 mg PO DAILY 15 Days #15 cap 11/17/23 [Rx] lisinopriL [Zestril] 10 mg PO DAILY #30 tab 11/17/23 [Rx] metFORMIN HCL 500 mg PO BID 30 Days #60 tablet 11/17/23 [Rx] Follow up Appointment(s)/Referral(s): Piedad Tompkins MD [Primary Care Provider] - 1-2 days Residential Home,Health [NON-STAFF] - As Needed Patient Instructions/Handouts: How to Recover from COVID-19 at Home (GEN) Activity/Diet/Wound Care/Special Instructions: Activity Limited until follow-up follow-up with primary care provider on discharge Continue taking medications as prescribed Continue monitoring Accu-Cheks and keep a diary of all readings and discuss with primary care provider as medication adjustments have been made as patient had continued episodes of hypoglycemia Continue with home care Discharge Disposition: HOME WITH HOME HEALTH SERVICES
== END 2023-11-17 17:06 | disposition home health service (06) | DRG 637 ==
LOC: EC 20:45 → 4SSUR 23:54 → OBSVTOIN 11-15 09:44
PROVIDERS: ADMIT Hospitalist; ATTEND Hospitalist
DX: E11.649 Type 2 diabetes mellitus with hypoglycemia without coma (principal); G93.41 Metabolic encephalopathy; U07.1 COVID-19; E87.1 Hypo-osmolality and hyponatremia; E78.5 Hyperlipidemia, unspecified; E83.42 Hypomagnesemia; H91.90 Unspecified hearing loss, unspecified ear; I10 Essential (primary) hypertension; M19.90 Unspecified osteoarthritis, unspecified site; R29.6 Repeated falls; S00.83XA Contusion of other part of head, initial encounter; S00.33XA Contusion of nose, initial encounter; W18.30XA Fall on same level, unspecified, initial encounter; Z79.02 Long term (current) use of antithrombotics/antiplatelets; Z79.899 Other long term (current) drug therapy; Z87.891 Personal history of nicotine dependence
CPT/HCPCS: 36415; 70450; 80048; 80053; 81001; 82607; 82747; 83036; 83605; 83735; 84145; 84443; 84484; 85025; 87086; 87636; 93005; 96361; 96365; 96375; 99285